=== PATIENT | female | born 1970 | race Caucasian/White ===

== ENCOUNTER 2020-06-21 08:44 | Inpatient (IN) | payer MEDICARE, MEDICAID, SELFPAY ==
[2020-06-21] VITALS (33 sets, daily range): BP systolic 61–137; BP diastolic 50–97; PULSE 105–131; RESP 17–35; TEMP 37.9–39.3; O2SAT 90–99; BMI 38.9
--- NOTE | ~2020-06-21 | CT_ITS ---
EXAMINATION: CT guide absc cath placement DATE: 06/22/2020 09:48 INDICATION: Left adnexal abscess. TECHNIQUE: The procedure including the risks, benefits, and alternatives was discussed with the patie nt. Risks discussed included bleeding and infection. The patient understood the risks and benefits an d agreed to proceed. The patient was confirmed to be receiving appropriate antibiotic coverage. The skin overlying the abdomen was prepped and draped in usual sterile fashion. Anesthetic was administe red with 1% lidocaine subcutaneously. An 18 gauge trochar needle was inserted into the left adnexal a bscess with CT guidance. The needle was exchanged over a wire for 6 Russian, 8 Russian, and 10 Russian d ilators and then for an 8.5 Russian pigtail catheter. The catheter was stitched to the skin, and a jackie rile dressing was applied. The mA was adjusted according to patient size. Iterative reconstruction te chnique was employed. The dose-length product was 170.24 mGy-cm. There were no immediate complication s. FINDINGS: CT images demonstrate the catheter within the fluid collection. 20 mL fluid was aspirated f or testing. IMPRESSION: 1. Successful CT-guided left adnexal abscess drainage. 2. 20 mL yellow-freedman, foul-smelling fluid was sent for aerobic and anaerobic cultures. Reviewed, dictated and finalized at location A. IMPRESSION: 1. Successful CT-guided left adnexal abscess drainage. 2. 20 mL yellow-freedman, foul-smelling fluid was sent for aerobic and anaerobic cul tures.
--- NOTE | ~2020-06-21 | XR_ITS ---
EXAMINATION: XR chest 2V DATE: 06/21/2020 10:01 INDICATION: Fever and cough TECHNIQUE: PA and lateral views of the chest are obtained. COMPARISON: None available FINDINGS: The lungs are free of acute opacities. There is no pleural effusion or pneumothorax. The ca rdiomediastinal silhouette is normal. There is mild thoracic spondylosis. IMPRESSION: 1. No acute cardiopulmonary abnormality. Reviewed, dictated and finalized at location A.
--- NOTE | ~2020-06-21 | XR_ITS ---
EXAMINATION: XR chest 1V portable DATE: 06/22/2020 06:22 INDICATION: Cough. TECHNIQUE: A single frontal view of the chest was obtained. COMPARISON: Chest 2 views 06/21/2020, CT abdomen and pelvis 06/21/2020 FINDINGS: The chest demonstrates clear lungs without pneumonia, pleural effusion, or pneumothorax. Th e heart size is normal. IMPRESSION: 1. No acute cardiopulmonary disease. Reviewed, dictated and finalized at location A.
--- NOTE | ~2020-06-21 | XR_ITS ---
XR chest 2V 06/26/2020 10:37 Indication: Cough. Recent abscess drain. Procedure: 2 view chest Comparison: 06/22/2020 Findings: Heart size normal. There is left basilar atelectasis. Cannot exclude small left effusion. N o focal pneumonia, edema or pneumothorax. No acute osseous abnormality. Impression: 1: Left basilar atelectasis. Reviewed, dictated and finalized at location B. Impression: 1: Left basilar atelectasis.
--- NOTE | ~2020-06-21 | CT_ITS ---
EXAMINATION: CT abdomen pelvis w con DATE: 06/21/2020 09:57 INDICATION: Generalized abdominal pain. TECHNIQUE: Computed tomography (CT) of the abdomen and pelvis was performed with 100 mL Omnipaque 350 intravenous contrast. Automated exposure control and iterative reconstruction technique were employe d. The dose-length product was 856.08 mGy-cm. COMPARISON: CT abdomen and pelvis 12/24/2018 FINDINGS: The visualized portions of the lung bases are clear without pneumonia or pleural effusion. The heart size is normal. No pericardial effusion. There is a small sliding hiatal hernia. The liver, gallbladder, and left adrenal gland are normal. There is a 2.8 cm mass in right adrenal gland contai stefani fat, consistent with a myelolipoma. Calcifications in the spleen are consistent with old granulo matous disease. A calcification in the pancreas is consistent with chronic pancreatitis. The kidneys are normal. There are scattered diverticula in the colon. There is liquid stool in the colon suggesti ve of diarrhea. The appendix is not visualized. There is a 13.4 x 11.5 x 7.3 cm multiloculated cystic mass with thick septations involving the left adnexa and abutting the uterus and sigmoid colon. Ther e is fat stranding around the mass. There are no pathologically enlarged lymph nodes. There is no sanna e intraperitoneal fluid. There is mild lumbar spondylosis. IMPRESSION: 1. 13.4 x 11.5 x 7.3 cm multiloculated cystic mass centered in the left adnexa. This finding may be a n ovarian neoplasm or an abscess. Surgical evaluation is recommended. Reviewed, dictated and finalized at location A. IMPRESSION: 1. 13.4 x 11.5 x 7.3 cm multiloculated cystic mass centered in the left adnexa. This finding may be an ovarian neoplasm or an abscess. Surgical evaluation is recommended.
--- NOTE | ~2020-06-21 | CT_ITS ---
EXAMINATION: CT abdomen pelvis w con DATE: 06/26/2020 10:55 INDICATION: Left adnexal abscess. TECHNIQUE: Computed tomography (CT) of the abdomen and pelvis was performed without intravenous contr ast. Automated exposure control and iterative reconstruction technique were employed. The dose-length product was 1022.16 mGy-cm. COMPARISON: CT abdomen and pelvis 06/21/2020 FINDINGS: The visualized portions of the lung bases demonstrate mild atelectasis in the left. A calci fied right lung nodule and calcified right hilar lymph nodes are consistent with old granulomatous di sease. There are tiny pleural effusions. The heart size is normal. No pericardial effusion. The liver , gallbladder, pancreas, and adrenal glands are normal. Calcifications in the spleen are consistent w ith old granulomatous disease. There is mild bilateral hydronephrosis and hydroureter. There are no d ilated loops of bowel. There are changes of appendectomy. There is a multiloculated abscess in the le ft adnexa measuring 7.4 x 5.1 x 4.4 cm with percutaneous drain in expected position. There are small rim-enhancing fluid collections in the left abdomen measuring up to 3.5 x 1.6 x 2.7 cm. There is a 5. 5 x 2.6 x 2.0 cm rim enhancing fluid collection at the midline. There are rim-enhancing fluid collect ions in right abdomen measuring up to 5.5 x 3.0 x 3.0 cm. There are no pathologically enlarged lymph nodes. There is mild lumbar spondylosis. IMPRESSION: 1. Multiloculated abscess in left adnexa with decrease in size with percutaneous drain in expected po sition. 2. Multiple new intraperitoneal rim-enhancing fluid collections, consistent with abscesses. 3. New mild bilateral hydronephrosis and hydroureter. Reviewed, dictated and finalized at location A. IMPRESSION: 1. Multiloculated abscess in left adnexa with decrease in size with percutaneou s drain in expected position. 2. Multiple new intraperitoneal rim-enhancing fluid collections, consistent wit h abscesses. 3. New mild bilateral hydronephrosis and hydroureter.
[2020-06-21 09:25] LABS: Hematocrit 33.9 % (37.0-47.0); Hemoglobin 11.2 g/dL (12.0-15.0); Mean Corpuscular Hemoglobin 27.1 pg (26-34); Mean Corpuscular Volume 81.9 fl (80-100); Mean Platelet Volume 8.8 fl (7.4-10.4); Platelet Count Result 557 k/mm3 (150-375); Red Blood Count 4.14 M/mm3 (4.2-5.4); Red Cell Distribution Width 14.2 % (11.5-14.5); White Blood Count 36.2 K/mm3 (4.5-10.0)
[2020-06-21 09:34] LABS: Band Neutrophils Percent 1 % (0-6); INR 1.3; Lymphocytes Absolute Manual 1.44 K/mm3 (1.1-4.5); Monocytes Absolute Manual 2.17 K/mm3 (0.1-0.90); Monocytes Percent Manual 6 % (3-9); Neutrophils Absolute Manual 32.58 K/mm3 (1.7-7.2); Neutrophils Percent Manual 89 % (46-73); Platelet Estimate Increased (Adequate); Prothrombin Time 15.7 Seconds (11.1-14.7); Total Cells Counted 100
--- NOTE | 2020-06-21 09:34 | WPDEDEXPGENP ---
HPI - General Ped General Chief complaint: Fever Stated complaint: ABD PAIN Time Seen by Provider: 06/21/20 09:30 Source: patient Mode of arrival: ambulatory Limitations: no limitations History of Present Illness HPI narrative: 49 years old white female presents with pain left lower quadrant, constant, aching, Patient denies any fever, chills, nausea, vomiting, diarrhea, constipation, urinary symptoms, vaginal bleeding or discharge. Last menstrual period months ago, patient believes she is going through menopause. Patient reports intermittent dry cough which started 3 days ago, denies exposure to anybody with known having COVID-19. Related Data Home Medications Medication Instructions Recorded Confirmed Vraylar 06/21/20 mzdbjwzich-hdulmtnkpmxpc-afex cap BID PRN 06/21/20 [Fioricet] clonazepam 06/21/20 pregabalin [Lyrica] 06/21/20 trazodone 06/21/20 vortioxetine [Trintellix] mg 06/21/20 Allergies Allergy/AdvReac Type Severity Reaction Status Date / Time No Known Allergies Allergy Mild Unverified 06/21/20 08:52 Pediatric Review of Systems : Review of Systems: CONSTITUTIONAL: Denies fever, chills, or sweats. EYES: Denies visual changes, redness, or discharge. ENT: Denies rhinorrhea, congestion, sore throat, or otalgia. CARDIOVASCULAR: Denies chest pain, palpitations, or edema. RESPIRATORY: Denies cough or dyspnea. GASTROINTESTINAL: Denies abdominal pain, nausea, vomiting, or diarrhea. GENITOURINARY: Denies dysuria or hematuria. SKIN: Denies rash or itching. MUSCULOSKELETAL: Denies back pain, joint pain, or myalgia. NEUROLOGIC: Denies headache, numbness, or weakness. PSYCHIATRIC: Denies anxiety or depression. [facility] Social History Social History (Updated 06/21/20 @ 11:03 by Miguel Angel Sargent MD) Second hand tobacco smoke exposure: No Pediatric Exam Narrative: Physical exam: General appearance: Well-developed, well-nourished, looks ill, no family member at the bedside Skin: Normal color Head: Normocephalic, nontraumatic Eyes: Clear conjunctiva ENT: Oropharynx normal, ears normal, nose normal Neck: Supple, nontender Chest and respiratory: Airway patent, no respiratory distress, no accessory muscle use Heart: Regular rate/rhythm Abdomen: Soft, severe localized tenderness left lower quadrant, masslike feeling, guarding and rebound, no organomegaly, quiet bowel sounds Vascular: Normal peripheral pulses, normal capillary refill. Musculoskeletal: Normal range of motion, nontender back Neurologic: Alert and oriented ?3, PROJECT ESTIMATOR is normal as tested, no gross motor deficit : External exam: Present normal external exam and other (Vaginal exam showed no bleeding or discharge. Diffusely tender mainly at the left) Course Course Emergency Course: Stable Consultations Consultation #1: Dr. Mejia Date: 06/21/20 Time: 11:12 Vital Signs Vital signs: Vital Signs Temperature 39.3 C H 06/21/20 08:49 Pulse Rate 131 H 06/21/20 08:49 Respiratory Rate 35 H 06/21/20 08:49 Blood Pressure 120/69 06/21/20 08:49 Pulse Oximetry 95 06/21/20 08:49 Temperature 39.3 C H 06/21/20 08:49 Pulse Rate 105 H 06/21/20 12:46 Respiratory Rate 20 06/21/20 12:46 Blood Pressure 113/97 H 06/21/20 13:01 Pulse Oximetry 97 06/21/20 13:01 Medical Decision Making MDM Narrative Medical decision making narrative: Patient presents with left lower quadrant pain, high temperature noticed on arrival to the emergency room, patient denies any fever or chills at home. Physical exam showed severe tenderness left lower quadrant with masslike feeling. Labs, CT abdomen and pelvis with IV contrast showed Leukocytosis, Mass versus abscess left adne
[2020-06-21 09:35] LABS: Partial Thromboplastin Time 35.7 SECONDS (22.3-36.8)
[2020-06-21 09:42] LABS: Alanine Aminotransferase 41 U/L (4-35); Albumin Level 3.4 g/dL (3.5-5.1); Alkaline Phosphatase 177 U/L (38-126); Anion Gap 12 mmol/L (8-16); Aspartate Amino Transferase 25 U/L (14-36); Blood Urea Nitrogen 10 mg/dL (7-17); Calcium 8.7 mg/dL (8.4-10.2); Carbon Dioxide 22 mmol/L (22-30); Chloride 101 mmol/L (98-107); Estimated CRCL calculation 0 ml/min; Estimated Glomerular Filt Rate > 60; Glucose 208 mg/dL (65-105); Potassium 3.1 mmol/L (3.4-5.0); Sodium 135 mmol/L (137-145)
--- NOTE | 2020-06-21 09:48 | PC.NURSE ---
this RN at bedside to give meds and start IVF. tech here to take patient to CT.
--- NOTE | 2020-06-21 10:05 | PC.NURSE ---
patient back from CT. ambulated to restroom. cup for urine specimen given.
--- NOTE | 2020-06-21 10:14 | PC.NURSE ---
Note pt returns from radiology and then restroom. IV dc'd accidently per patient. VANESSA Leon, at bedside attempting additional IV.
[2020-06-21] MEDS: SODIUM CHLORIDE 0.9% IV 1,000 ML 999 ML IV CONT (10:21)
[2020-06-21 10:26] LABS: Add Urine Microscopic? YES; Appearance Urine Clear (Clear); Bacteria Urine Trace /hpf; Bilirubin Urine Negative (Negative); Blood Urine 3+ (Negative); Color Urine Yellow (Yellow); Glucose Urine UA Negative (Negative); Ketones Urine Negative (Negative); Leukocyte Esterase Ur Negative LEU/UL (Negative); Nitrate Urine Negative (Negative); Protein Urine 2+ mg/dL (Negative); Squamous Epithelial Cell Urine Few /hpf (Few); WBC Urine 16-20 /hpf
[2020-06-21 10:29] LABS: Specific Grav Ur 1.041 (1.001-1.035)
--- NOTE | 2020-06-21 11:10 | PC.NURSE ---
this rn at bedside. Flagyl infusing. KCL IV started. verified compatibility on Micromedex. all explained to patient. Alert. denies other needs. placed on school bus monitor due to KCL infusion.
[2020-06-21] MEDS: metroNIDAZOLE 500 MG/ISO 100ML 500 MG/100 ML BAG 100 MG IVPB ×2 (11:33→18:26)
--- NOTE | 2020-06-21 11:42 | PC.NURSE ---
Dr. Sargent at bedside for pelvic exam with cultures.
--- NOTE | 2020-06-21 12:44 | PC.NURSE ---
patient to be admitted upstairs. waiting for bed assignment.
--- NOTE | 2020-06-21 13:06 | PC.NURSE ---
patient updated on admission status. waiting for bed assignment. incontinent of urine again while coughing. patient is concerned that the mass in her abdomen is pushing on her bladder. patient's bed changed. patient cleaned and gown changed. placed back on stretcher. on monitor. alert. oriented.
--- NOTE | 2020-06-21 14:05 | PC.NURSE ---
will call to verify RN on floor received patient's information. then planning to transfer to 252. patient is aware.
--- NOTE | 2020-06-21 14:28 | PC.NURSE ---
report given to Flor MENDEZ on 2nd floor. patient ready for transfer on tele monitor due to K-rider infusing. patient denies needs prior to transfer.
[2020-06-21] MEDS: ONDANSETRON INJ 4 MG/2 ML VIAL IV PUSH (14:47)
--- NOTE | 2020-06-21 14:57 | PC.NURSE ---
Flor MENDEZ from 2nd floor called. patient's mother has been upstairs in her room for 20 minutes. checked with patient. patient does not want her mother here. Flor aware. she will have the patient escorted out.
--- NOTE | 2020-06-21 15:43 | ADMGEN ---
This patient, Clemente Blake, was admitted to Medical Room 252-01. Patient/family oriented to hospital policies and general routines including ID bracelet, bed and alarms, visiting hours, pain management, procedures, bathroom and other care routines, personal items, smoking policy, room service/diet, and visiting hours. Valuables list has been completed. Information on how to activate the Rapid Response Team has been discussed. Patient/Family are encouraged to report perceived risks to care and to ask questions if they do not understand what they are told or what they should do.
[2020-06-21] MEDS: SODIUM CHLORIDE 0.9% IV 1,000 ML 150 ML IV CONT (16:43)
--- NOTE | 2020-06-21 17:01 | PM.IMHP ---
H&P: HPI History of Present Illness Date/Time: 06/21/20 17:01 Chief complaint: pelvic abscess Narrative: Clemente Blake is a 49 year old female presentee to ER with complaints of left lower quadrant pain and cough. Pain is constant and radiates into vagina. Patient reports pains statred 2-3 days ago. Patient denies fevers chills. Patient does report some sweats patient also denies any vaginal discharge or changes in bowel or urinary symptoms. patient denies nausea vomiting diarrhea or rashes. Patient reports last vaginal intercourse or sexual intercourse almost a year ago. Patient has began to skip menstrual cycles last menstrual cycle a couple months ago. Last obstetrics gyn exam approximately 10 years ago. patient denies any female complications. Review of Systems Review of Systems: All systems reviewed & are unremarkable except as noted in HPI and below PMFSH Past Medical History Medical History (Updated 06/21/20 @ 17:07 by Brien Mitchell MD) Bipolar 1 disorder Surgical History Surgical History (Updated 06/21/20 @ 17:08 by Brien Mitchell MD) H/O: History of appendectomy Social History Social History Smoking status: Never smoker Second hand tobacco smoke exposure: No Alcohol intake: never Substance use: never Gender identity (if verbalized by the patient): Female Spiritual care concerns: No Meds Home Medications and Allergies Home Medications Medication Instructions Recorded Confirmed Type medvsbfffs-knbipoykctawn-vyrc 1 cap BID PRN 06/21/20 06/21/20 History [Fioricet] cariprazine [Vraylar] 1.5 mg PO DAILY 06/21/20 06/21/20 History clonazepam 2 mg PO TID PRN 06/21/20 06/21/20 History pregabalin [Lyrica] 200 mg PO BID PRN 06/21/20 06/21/20 History ropinirole 0.5 mg PO BID PRN 06/21/20 06/21/20 History trazodone 100 mg PO HS PRN 06/21/20 06/21/20 History vortioxetine [Trintellix] 20 mg PO DAILY 06/21/20 06/21/20 History Allergies Allergy/AdvReac Type Severity Reaction Status Date / Time No Known Allergies Allergy Mild Unverified 06/21/20 08:52 Vital Signs Vital Signs - 24 hr 06/21/20 08:49 06/21/20 08:53 06/21/20 09:07 Temperature 39.3 C H Pulse Rate 131 H 130 H 127 H Respiratory Rate 35 H 28 H 31 H Blood Pressure 120/69 Pulse Oximetry 95 96 96 06/21/20 09:15 06/21/20 09:16 06/21/20 09:30 Temperature Pulse Rate 127 H Respiratory Rate 17 27 H Blood Pressure 131/74 Pulse Oximetry 93 97 96 06/21/20 09:31 06/21/20 09:45 06/21/20 09:46 Temperature Pulse Rate 125 H Respiratory Rate Blood Pressure 134/73 110/68 Pulse Oximetry 94 97 97 06/21/20 10:11 06/21/20 10:12 06/21/20 10:15 Temperature Pulse Rate Respiratory Rate Blood Pressure 137/68 Pulse Oximetry 90 99 97 06/21/20 10:30 06/21/20 10:45 06/21/20 10:46 Temperature Pulse Rate Respiratory Rate Blood Pressure 116/72 Pulse Oximetry 96 95 97 06/21/20 11:03 06/21/20 11:15 06/21/20 11:16 Temperature Pulse Rate Respiratory Rate Blood Pressure 119/68 Pulse Oximetry 97 96 96 06/21/20 11:33 06/21/20 11:49 06/21/20 12:00 Temperature Pulse Rate Respiratory Rate Blood Pressure Pulse Oximetry 97 93 95 06/21/20 12:10 06/21/20 12:15 06/21/20 12:16 Temperature Pulse Rate Respiratory Rate Blood Pressure 121/59 L 116/71 Pulse Oximetry 94 94 95 06/21/20 12:31 06/21/20 12:32 06/21/20 12:45 Temperature Pulse Rate 107 H 107 H 108 H Respiratory Rate 30 H 33 H 28 H Blood Pressure 61/50 L Pulse Oximetry 96 96 96 06/21/20 12:46 06/21/20 13:00 06/21/20 13:01 Temperature Pulse Rate 105 H Respiratory Rate 20 Blood Pressure 98/67 L 113/97 H Pulse Oximetry 97 94 97 06/21/20 13:29 06/21/20 15:57 Temperature 38.1 C H 38.2 C H Pulse Rate 120 H Respiratory Rate 28 H Blood Pressure 130/68 Pulse Oximetry 98 Exam
--- NOTE | 2020-06-21 18:57 | PHAR ---
Home medications Vraylar 1.5mg and Trintellix 20mg seen in pharmacy and returned to [facility]
[2020-06-22] VITALS (19 sets, daily range): BP systolic 87–148; BP diastolic 52–85; PULSE 100–132; RESP 16–45; TEMP 36.8–39.3; O2SAT 91–97
[2020-06-22] MEDS: SODIUM CHLORIDE 0.9% IV 1,000 ML 150 ML IV CONT ×2 (01:00→16:23)
[2020-06-22] MEDS: metroNIDAZOLE 500 MG/ISO 100ML 500 MG/100 ML BAG 100 MG IVPB ×4 (01:10→18:00)
[2020-06-22] MEDS: traZODone HCL 50 MG TABLET 100 MG PO (01:52)
--- NOTE | 2020-06-22 05:28 | ECG_ITS ---
Measurements Intervals Delta Rate: 107 P: 6 KS: 122 QRS: 9 QRSD: 81 T: 20 QT: 317 QTc: 423 Interpretive Statements SINUS TACHYCARDIA LOW QRS VOLTAGE IN PRECORDIAL LEADS BORDERLINE T WAVE ABNORMALITY- INFERIOR LEADS BASELINE WANDER- I, II, III, AVR, AVL, V6 ABNORMAL ECG Electronically Signed On 06-22-2020 7:06:40 CDT by He Goyal D.O.
[2020-06-22] MEDS: SODIUM CHLORIDE 0.9% IV 500 ML 999 ML IV CONT ×2 (05:50→06:33)
--- NOTE | 2020-06-22 05:50 | PM.IMCN ---
Assessment and Plan Assessment and plan (1) Severe sepsis: Code(s): A41.9 - Sepsis, unspecified organism; R65.20 - Severe sepsis without septic shock Status: Acute Assessment and Plan: The patient was found to be hypotensive this morning with blood pressure of 87/52 mm Hg and tachycardic w/ HR in the 130s. Source of sepsis appears to be an intraabdominal/pelvic abscess. Continue wide spectrum IV antibiotics, check EKG, reflex lactic acid, 500 cc IV NS bolus, ABG, telemetry, continue NPO, Continue IV fluids. Monitor vital signs and urine output closely. Monitor mental status closely. Blood cultures pending. Telemetry. The patient's blood pressure has improved to 97/55 mm Hg and heart rate is now 105 bpm with 500 cc NS IV bolus. We will administer another 500 CC IV NS bolus now. We will consider transfer to ICU and vasopressor support if the patient worsens. (2) Hypokalemia: Code(s): E87.6 - Hypokalemia Status: Acute Assessment and Plan: KCL replacement, Monitor serum potassium. (3) Abscess of female pelvis: Code(s): N73.9 - Female pelvic inflammatory disease, unspecified Status: Acute Assessment and Plan: Continue wide spectrum IV antibiotics. Continue COSTUME SHOP COORDINATOR recommendations. The patient will benefit from source control of abscess. (4) Abnormal glucose: Code(s): R73.09 - Other abnormal glucose Status: Acute Assessment and Plan: r/o diabetes mellitus. Check HgbA1c. Accuchecks, SSI coverage, Hypoglycemic protocol. (5) Cough: Code(s): R05 - Cough Status: Acute Assessment and Plan: Check another CXR this morning. PRN antitussives. (6) Bipolar 1 disorder: Code(s): F31.9 - Bipolar disorder, unspecified Status: Chronic Assessment and Plan: Resume home medications when appropriate. (7) Fibromyalgia: Code(s): M79.7 - Fibromyalgia Status: Chronic Assessment and Plan: Resume home medications when appropriate. Additional Plan Date of service was 06/22/2020 at 05:30 hrs. HPI Data of Consult Consult date: 06/22/20 Requesting Physician: Naya Mejia MD Primary Care Provider: Clarissa SosaMD Consult Narrative Narrative: Thank you for consulting us to see this 49 year old morbidly obese female with known Bipolar disorder and fibromyalgia who presented to the hospital yesterday with a complaint of 3 days of left lower abdominal and pelvic pain. She denies any nausea or vomiting but does report that she has had a nonproductive cough. The patient was admitted to the COSTUME SHOP COORDINATOR service after she was found to have a 3.4 x 11.5 x 7.3 cm multiloculated cystic mass centered in the left adnexa and found to be severely septic with an elevated WBC of 36,200, fever of 39.3 C, and tachycardic with HR in the 120s- 130s. On my encounter with the patient she is diaphoretic, somnolent but arousable, continuing to complain of LLQ abd pain. The patient was had a prominent nonproductive cough during my encounter with her. She is denying any other symptoms at this time. Nursing staff alerted me that the patient was also having diarrhea tonight. Review of Systems Review of Systems: All systems reviewed & are unremarkable except as noted in HPI and below PMFSH Past Medical History Medical History Bipolar 1 disorder Surgical History Surgical History H/O: History of appendectomy Social History Social History Smoking status: Never smoker Second hand tobacco smoke exposure: No Alcohol intake: never Substance use: never Gender identity (if verbalized by the patient): Female Spiritual care concerns: No Comments Patient does not know any history of her father, other family history is reviewed and noncontributory. Meds
[2020-06-22 05:53] LABS: Alveolar/Arterial O2 Gradient 23.6 mmHg; Base Excess ABG -6.1 mEq/l (+/-2.0); Fractional Inspired Oxygen 21 %; Oxygen Content ABG 16.7 %vol (16.0-22.0); Oxygen Saturation ABG 96.7 % (95.0-100.0); Oxyhemoglobin 95.8 % THb (90.0-100.0); PCO2 ABG 31.4 mmHg (35.0-45.0); PO2 ABG 88.5 mmHg (80.0-100.0); PO2 FiO2 Ratio Arterial Blood 4.21 %; Total Hemoglobin 12.3 g/dL (12.0-18.0); pH ABG 7.376 (7.350-7.450)
[2020-06-22 05:55] LABS: Device ROOM AIR; Modified Allen's Test Pass; Site Drawn RIGHT RADIAL
[2020-06-22 06:01] LABS: Alanine Aminotransferase 27 U/L (4-35); Albumin Level 3.1 g/dL (3.5-5.1); Alkaline Phosphatase 147 U/L (38-126); Anion Gap 11 mmol/L (8-16); Aspartate Amino Transferase 17 U/L (14-36); Bilirubin,Total 0.5 mg/dL (0.2-1.3); Blood Urea Nitrogen 9 mg/dL (7-17); Calcium 8.2 mg/dL (8.4-10.2); Carbon Dioxide 19 mmol/L (22-30); Chloride 110 mmol/L (98-107); Estimated CRCL calculation 74 ml/min; Estimated Glomerular Filt Rate > 60; Glucose 165 mg/dL (65-105); Sodium 140 mmol/L (137-145)
[2020-06-22 06:02] LABS: Basophils Absolute Auto 0.1 K/mm3 (0.0-0.1); Basophils Percent Auto 0.3 % (0.2-1.2); Eosinophils Percent Auto 0.1 % (0-4.4); Hematocrit 30.9 % (37.0-47.0); Hemoglobin 10.1 g/dL (12.0-15.0); Immature Granulocyte Absolute 0.51 K/mm3 (0.00-0.031); Immature Granulocyte Percent A 1.6 % (0-0.5); Lymphocytes Absolute Auto 1.35 K/mm3 (0.9-3.2); Lymphocytes Percent Auto 4.2 % (18.3-44.2); Mean Corpuscular HGB Conc 32.7 g/dl (32-36); Mean Corpuscular Hemoglobin 27.8 pg (26-34); Mean Corpuscular Volume 85.1 fl (80-100); Monocytes Absolute Auto 1.2 K/mm3 (0.1-0.6); Monocytes Percent Auto 3.7 % (2.6-8.5); Neutrophils Absolute Auto 29.2 K/mm3 (1.3-6.7); Neutrophils Percent Auto 90.1 % (45.5-73.1); Platelet Count Result 470 k/mm3 (150-375); Red Blood Count 3.63 M/mm3 (4.2-5.4); Red Cell Distribution Width 14.7 % (11.5-14.5); White Blood Count 32.4 K/mm3 (4.5-10.0)
[2020-06-22 06:21] LABS: Lactic Acid Reflex 0.8 mmol/L (0.7-2.1)
--- NOTE | 2020-06-22 06:51 | PC.NURSE ---
Dr. Payne called for blood pressure 87/52 and informed her pt has remained tachy 100-130s overnight with a fever spike of 102.8 which was relieved by tylenol. Orders received for hospitalist consult and for radiologist placed ovarian drain. Dr Tom consulted and further orders received in person.
--- NOTE | 2020-06-22 07:08 | PC.NURSE ---
Vascular access called to place second line after unable to place one overnight, pt requiring multiple infusions at a time and requires a second line at this time.
[2020-06-22] MEDS: KCL 20 MEQ/SW 100 ML 100 ML 50 MEQ IVPB (07:50)
[2020-06-22] MEDS: guaiFENesin/DEXTROMETHORPHAN 10 ML UDC PO ×2 (07:51→22:08)
[2020-06-22 08:18] LABS: Glucose Point of Care 122 (65-105)
[2020-06-22] MEDS: HYDROmorphone HCL INJ (*CRX) 1 MG/ML SYR 0.5 MG IV PUSH ×2 (10:02→18:04)
[2020-06-22] MEDS: SODIUM CHLORIDE 0.9% IV 1,000 ML 999 ML IV CONT (11:54)
[2020-06-22] MEDS: HYDROmorphone HCL INJ (*CRX) 1 MG/ML SYR 2 MG IV PUSH (12:06)
[2020-06-22 12:36] LABS: Anion Gap 10 mmol/L (8-16); Blood Urea Nitrogen 8 mg/dL (7-17); Calcium 8.2 mg/dL (8.4-10.2); Carbon Dioxide 17 mmol/L (22-30); Chloride 114 mmol/L (98-107); Estimated CRCL calculation 74 ml/min; Estimated Glomerular Filt Rate > 60; Glucose 171 mg/dL (65-105); Potassium 3.1 mmol/L (3.4-5.0); Sodium 141 mmol/L (137-145)
[2020-06-22 12:53] LABS: Glucose Point of Care 162 (65-105)
--- NOTE | 2020-06-22 14:07 | PM.IMPN ---
Progress Note: A&P Assessment and Plan (1) Fibromyalgia: Code(s): M79.7 - Fibromyalgia Status: Chronic Assessment and Plan: Stable Continue home meds. (2) Abscess of female pelvis: Code(s): N73.9 - Female pelvic inflammatory disease, unspecified Status: Acute Assessment and Plan: S/p IR drain. Await cx Continue Zosyn + Flagyl Appreciate chief general pediatric clinic note CT abd/pel reviewed (3) Cough: Code(s): R05 - Cough Status: Acute Assessment and Plan: Non productive Supportive care Continue to monitor. (4) Hypokalemia: Code(s): E87.6 - Hypokalemia Status: Acute Assessment and Plan: Replace as needed. (5) Severe sepsis: Code(s): A41.9 - Sepsis, unspecified organism; R65.20 - Severe sepsis without septic shock Status: Acute Assessment and Plan: Improved IV fluids Broad spectrum antibiotics Daily CBC Daily BMP (6) Bipolar 1 disorder: Code(s): F31.9 - Bipolar disorder, unspecified Status: Chronic Assessment and Plan: Stable Continue home meds Subjective Date/time seen: 06/22/20 14:07 I'm in pain. No more chills. Review of Systems Review of Systems: Narrative: Patient presented to ED due to abdominal pain, patient was found to have complex anexa mass and abscess formation. She is s/p abscess drain by IR. Constitutional: Comments: Chills. Eyes: Comments: No visual changes. ENT: Comments: No ear pain, no throat pain, no nasal congestion or discharge. Cardiovascular: Comments: no chest pain, no sob, no leg swelling. Respiratory: Comments: No sob, no cough, no sputum production. Gastrointestinal: Comments: LLQ pain. Genitourinary: Comments: no vaginal bleeding, no discharge. Musculoskeletal: Comments: no pain, no swelling. Integumentary/Breasts: Comments: no rashes. Neurologic: Comments: no sensorymotor deficit. Hematologic/Lymphatic: Comments: No LAP Exam Narrative: Exam Narrative: Lying in bed antalgic position Const: General: well developed, alert, awake, ill appearing and well groomed Nutritional Appearance: average body habitus HENMT: Head: normocephalic Ears: hearing grossly normal bilaterally General nose exam: Normal external nose present Mouth: Yes Normal oral and palatal mucosa present Eyes: General: appearance normal, both eyes and all related structures Pupils: Equal, round and reactive pupils present EOM: EOMs intact bilaterally Neck: Neck: no lymphadenopathy and no JVD Resp: Effort & Inspection: normal respiratory effort Auscultation: clear to auscultation bilaterally Cardio: Jugular venous distension: no JVD Rhythm: regular rhythm and abnormal rhythm Heart sounds: S1 normal heart sound present and S2 normal heart sound present GI: GI Palp: Yes Soft to palpation, Yes Tenderness to palpation present (GI) and Yes No hepatosplenomegaly present Auscultation: normal bowel sounds Skin: General skin exam: normal color Lesions: no lesions Rashes: no rashes Neuro: General: patient oriented x3 and CN's II-XI intact bilaterally Cranial nerves: Yes Equal, round and reactive pupils present Motor exam (neuro): 5/5 motor strength present throughout Extrem: General: full ROM and no pedal edema Objective Data Vital Signs Vital Signs: Vital Signs - 24 hr 06/21/20 15:57 06/21/20 21:48 06/22/20 02:00 Temperature 100.8 F H 100.3 F H 102.8 F H Pulse Rate 120 H 121 H 124 H Respiratory Rate 28 H 18 16 Blood Pressure 130/68 113/57 L 134/60 Pulse Oximetry 98 99 95 06/22/20 02:26 06/22/20 04:30 06/22/20 04:50 Temperature 102.8 F H 98.6 F 98.2 F Pulse Rate 105 H Respiratory Rate 16 Blood Pressure 87/52 L Pulse Oximetry 96 06/22/20 04:53 06/22/20 06:21 06/22/20 08:00 Temperature 98.6 F 100.1 F H Pulse Rate 124 H Respiratory Rate 26 H Blood Pressure 97/55 L 132/70 Pulse Oximetry 97 06/22/20 09:50 06/22/20 10:00 06/22/20 10:54 Temperature 100.
--- NOTE | 2020-06-22 16:53 | PM.GYNPNOP ---
MILLINERY DESIGNER - A/P Assessment and plan (1) Abscess of female pelvis: Code(s): N73.9 - Female pelvic inflammatory disease, unspecified Status: Acute Assessment and Plan: Plan CT guided drainage of abscess. continue antibiotics and antipyretics and pain medications. Apppreciate hospitalist consult. (2) Hypokalemia: Code(s): E87.6 - Hypokalemia Status: Acute (3) Severe sepsis: Code(s): A41.9 - Sepsis, unspecified organism; R65.20 - Severe sepsis without septic shock Status: Acute (4) Bipolar 1 disorder: Code(s): F31.9 - Bipolar disorder, unspecified Status: Chronic (5) Fibromyalgia: Code(s): M79.7 - Fibromyalgia Status: Chronic (6) Cough: Code(s): R05 - Cough Status: Acute Time Spent With Patient Time: Total time spent is greater than 50% in coordination of care (as documented) at patient's floor/unit and/or counseling patient: Time with patient: less than 15 minutes MILLINERY DESIGNER- PN:Subj Post-Op Subjective Date/time seen: 06/22/20 16:53 Patient seen this am. Patient had Hospitalist consult this am for further sepsis workup. Patient being consented for ct guided biopsy. Patient with multiple questions about having surgery instead of drainage concerned with pain relief. MILLINERY DESIGNER - PN: Obj Data Vital Signs Vital Signs: Vital Signs - 24 hr 06/21/20 21:48 06/22/20 02:00 06/22/20 02:26 Temperature 37.9 C H 39.3 C H 39.3 C H Pulse Rate 121 H 124 H Respiratory Rate 18 16 Blood Pressure 113/57 L 134/60 Pulse Oximetry 99 95 06/22/20 04:30 06/22/20 04:50 06/22/20 04:53 Temperature 37.0 C 36.8 C 37.0 C Pulse Rate 105 H Respiratory Rate 16 Blood Pressure 87/52 L Pulse Oximetry 96 06/22/20 06:21 06/22/20 08:00 06/22/20 09:50 Temperature 37.8 C H Pulse Rate 124 H 100 Respiratory Rate 26 H 16 Blood Pressure 97/55 L 132/70 148/85 H Pulse Oximetry 97 97 06/22/20 10:00 06/22/20 10:54 06/22/20 11:24 Temperature 38.1 C H 38.1 C H 37.4 C Pulse Rate 130 H Respiratory Rate 24 H Blood Pressure 122/82 Pulse Oximetry 97 06/22/20 12:00 06/22/20 14:00 06/22/20 16:00 Temperature 37.1 C Pulse Rate 128 H 120 H 123 H Respiratory Rate 20 Blood Pressure 110/61 Pulse Oximetry 92 Intake/Output Intake/Output: Intake & Output 06/19/20 06/20/20 06/21/20 06/22/20 23:59 23:59 23:59 23:59 Intake Total 1999 4870 Output Total 325 Balance 1999 4545 Meds/Results Medications: Active Medications Generic Name Dose Route Start Last Admin Trade Name Freq PRN Reason Stop Dose Admin Butalbital/Aspirin/Caffeine 1 cap 06/21/20 19:49 06/21/20 21:25 Acetamin/Butalbital/Caffeine 1 Capsule PO 1 cap Q4H PRN Administration Headache Clonazepam 2 mg 06/21/20 17:17 Clonazepam (*Crx) 0.5 Mg Tablet PO TID PRN Anxiety Dextrose 12.5 gm 06/22/20 06:44 Dextrose 50% 25 Gm/50 Ml Syringe IV PUSH PRN PRN Hypoglycemia Protocol Glucagon 1 mg 06/22/20 06:44 Glucagon For Inj 1 Mg Vial IM PRN PRN Hypoglycemia Protocol Glucose 15 gm 06/22/20 06:44 Glucose Oral Gel 15 Gm Of Glucse In 37.5 Gm Tube PO PRN PRN Hypoglycemia Protocol Guaifenesin/Dextromethorphan 10 ml 06/22/20 06:43 06/22/20 07:51 Guaifenesin/Dextromethorphan 10 Ml Udc PO 10 ml Q4H PRN Administration Cough Hydromorphone HCl 0.5 mg 06/21/20 12:22 06/22/20 10:02 Hydromorphone Hcl Inj (*Crx) 1 Mg/Ml Syr IV PUSH 0.5 mg Q4H PRN Administration Pain Rated 7-10 Sodium Chloride 1,000 mls @ 150 mls/hr 06/21/20 12:25 06/22/20 16:23 Normal Saline Iv IV CONT 150 mls/hr .Q6H40M LELIA Administration Piperacillin/Tazobactam/Dextrose 3.375 gm in 50 mls @ 100 mls/hr 06/21/20 17:30 06/22/20 16:51 Zosyn 3.375 Gm/D5w 50ml Pm IVPB 100 mls/hr Q6H LELIA Administration Metronidazole 500 mg in 100 mls @ 100 mls/hr 06/21/20 18:30 06/22/20 13:57 Flagyl
[2020-06-22 17:27] LABS: Glucose Point of Care 178 (65-105)
[2020-06-22] MEDS: ONDANSETRON INJ 4 MG/2 ML VIAL IV PUSH (18:04)
[2020-06-22 18:17] LABS: Basophils Absolute Auto 0.1 K/mm3 (0.0-0.1); Basophils Percent Auto 0.5 % (0.2-1.2); Eosinophils Absolute Auto 0.1 K/mm3 (0-0.3); Eosinophils Percent Auto 0.2 % (0-4.4); Hematocrit 36.2 % (37.0-47.0); Hemoglobin 11.9 g/dL (12.0-15.0); Immature Granulocyte Absolute 0.35 K/mm3 (0.00-0.031); Immature Granulocyte Percent A 1.2 % (0-0.5); Lymphocytes Absolute Auto 0.91 K/mm3 (0.9-3.2); Lymphocytes Percent Auto 3.2 % (18.3-44.2); Mean Corpuscular HGB Conc 32.9 g/dl (32-36); Mean Corpuscular Volume 85.2 fl (80-100); Monocytes Absolute Auto 0.7 K/mm3 (0.1-0.6); Monocytes Percent Auto 2.6 % (2.6-8.5); Neutrophils Absolute Auto 25.8 K/mm3 (1.3-6.7); Neutrophils Percent Auto 92.3 % (45.5-73.1); Platelet Count Result 486 k/mm3 (150-375); Red Blood Count 4.25 M/mm3 (4.2-5.4); Red Cell Distribution Width 15.4 % (11.5-14.5)
[2020-06-22 19:05] LABS: Lactic Acid Reflex 1.3 mmol/L (0.7-2.1)
[2020-06-22 19:06] LABS: Anion Gap 9 mmol/L (8-16); Blood Urea Nitrogen 10 mg/dL (7-17); Calcium 7.7 mg/dL (8.4-10.2); Carbon Dioxide 19 mmol/L (22-30); Chloride 112 mmol/L (98-107); Estimated CRCL calculation 74 ml/min; Estimated Glomerular Filt Rate > 60; Glucose 202 mg/dL (65-105); Potassium 3.4 mmol/L (3.4-5.0); Sodium 140 mmol/L (137-145)
--- NOTE | 2020-06-22 22:00 | PM.EVENT ---
Event Note Event Note Event Note: S: I received a call from the patient's nurse at approximately 21:45 with an update. RN reports that the patient is tachycardic and tachypneic, reporting that she has been tachycardic since admission yesterday morning with periods of tachypnea as well. I came to examine the patient approximately 22:00 and the patient herself voices no real concerns aside from a dry cough has been ongoing for several weeks. She denies feeling short of breath and tells me that she is not taking deep breaths as it seems to exacerbate her cough. She is asymptomatic with regards to the tachycardia. She is on disability and does not go out of the home very often. No sick contacts or exposure to those positive for COVID-19. O: She appears moderately ill at the time my evaluation, nontoxic. Heart rate is about 120 to 125 and her respiratory rate is 34 at the time my evaluation. No murmur. Lungs are clear to auscultation. She is alert and oriented x4. Abdomen to palpation in the periumbilical region. Drain is in place. No significant lower extremity edema. A: I suspect her intermittent tachypnea is related to her underlying sepsis in addition to the patient intentionally not trying to take deep breaths to avoid cough and discomfort in her abdomen. Her blood pressures and oxygenation are stable. Recent lab draws including ABG showed no evidence of decompensation. P: We are going to continue to monitor the patient closely and she has been instructed to alert us of any change. Continue treating underlying pathology including IV fluids and broad-spectrum antibiotics. Blood cultures and abdominal fluid cultures pending at this time.
[2020-06-22 22:30] LABS: Glucose Point of Care 223 (65-105)
[2020-06-22 23:39] LABS: Alveolar/Arterial O2 Gradient 38.6 mmHg; Base Excess ABG -7.3 mEq/l (+/-2.0); Carboxyhemoglobin 0.4 % THb (0-2.0); Device ROOM AIR; Fractional Inspired Oxygen 21 %; HCO3 ABG 16.6 mEq/l (22.0-26.0); Methemoglobin ABG 0.1 %THb (0-1.5); Modified Allen's Test Pass; Oxygen Content ABG 15.9 %vol (16.0-22.0); Oxygen Saturation ABG 95.3 % (95.0-100.0); Oxyhemoglobin 94.7 % THb (90.0-100.0); PCO2 ABG 28.8 mmHg (35.0-45.0); PO2 ABG 76.6 mmHg (80.0-100.0); PO2 FiO2 Ratio Arterial Blood 3.65 %; Reduced Hemoglobin 4.8 %THb (0-5.0); Site Drawn RIGHT RADIAL; Total Hemoglobin 11.9 g/dL (12.0-18.0); pH ABG 7.379 (7.350-7.450)
[2020-06-22 23:53] LABS: Anion Gap 10 mmol/L (8-16); Blood Urea Nitrogen 10 mg/dL (7-17); Calcium 7.6 mg/dL (8.4-10.2); Carbon Dioxide 17 mmol/L (22-30); Chloride 109 mmol/L (98-107); Estimated CRCL calculation 74 ml/min; Estimated Glomerular Filt Rate > 60; Glucose 200 mg/dL (65-105); Potassium 3.1 mmol/L (3.4-5.0); Sodium 136 mmol/L (137-145)
[2020-06-23] VITALS (12 sets, daily range): BP systolic 111–125; BP diastolic 63–71; PULSE 105–118; RESP 22–28; TEMP 36.7–37.4; O2SAT 93–96
[2020-06-23] MEDS: traZODone HCL 50 MG TABLET 100 MG PO ×2 (00:01→21:45)
[2020-06-23] MEDS: metroNIDAZOLE 500 MG/ISO 100ML 500 MG/100 ML BAG 100 MG IVPB ×4 (00:34→17:45)
[2020-06-23] MEDS: ONDANSETRON INJ 4 MG/2 ML VIAL IV PUSH (02:07)
[2020-06-23] MEDS: SODIUM CHLORIDE 0.9% IV 1,000 ML 150 ML IV CONT ×2 (02:09→11:19)
--- NOTE | 2020-06-23 07:42 | PM.IMPN ---
Progress Note: A&P Assessment and Plan (1) Fibromyalgia: Code(s): M79.7 - Fibromyalgia Status: Chronic Assessment and Plan: Stable Continue home meds Continue to monitor (2) Cough: Code(s): R05 - Cough Status: Acute Assessment and Plan: Continue supportive care Tesalon pearls prn (3) Abnormal glucose: Code(s): R73.09 - Other abnormal glucose Status: Acute Assessment and Plan: D5% has been discontinued HgA1C noted Dieat and lifestyle modifications (4) Severe sepsis: Code(s): A41.9 - Sepsis, unspecified organism; R65.20 - Severe sepsis without septic shock Status: Acute Assessment and Plan: Leukocytosis although trending down Bandemia at 10 % Broad antibiotics on IV fluids Strict I/O's Daily labs Lactic acid noted (5) Bipolar 1 disorder: Code(s): F31.9 - Bipolar disorder, unspecified Status: Chronic Assessment and Plan: Stable Continue to monitor (6) Abscess of female pelvis: Code(s): N73.9 - Female pelvic inflammatory disease, unspecified Status: Acute Assessment and Plan: S/p drain placement. (7) Hyperchloremic metabolic acidosis: Code(s): E87.2 - Acidosis Status: Acute Assessment and Plan: 0.9%NS has been switched to 0.45% Subjective Date/time seen: 06/23/20 07:42 I feel better. Review of Systems Review of Systems: Narrative: Patient presented to ED due to LLQ abdominal pain. Constitutional: Comments: no chills, abdominal discomfort, rates pain at 4-5/10 in intensity. Gastrointestinal: Comments: passing gas but no BM's Genitourinary: Comments: incontinent Exam Narrative: Exam Narrative: Acutely ill looking, non toxic, lying in bed. Const: General: cooperative, comfortable, no acute distress, well developed, alert, awake, Physically active and ill appearing Nutritional Appearance: average body habitus Orientation/consciousness: patient oriented x3 HENMT: Head: normal to inspection and normocephalic Ears: hearing grossly normal bilaterally General nose exam: Normal external nose present Face and sinus: normal facial exam Eyes: General: appearance normal, both eyes and all related structures Pupils: Equal, round and reactive pupils present EOM: EOMs intact bilaterally Neck: Neck: full ROM, no lymphadenopathy and no JVD Lymphatic: no lymphadenopathy noted Resp: Effort & Inspection: normal respiratory effort Auscultation: clear to auscultation bilaterally Cardio: Rate: tachycardic Rhythm: regular rhythm Heart sounds: S1 normal heart sound present and S2 normal heart sound present Peripheral pulses: Peripheral pulses 2+ throughout GI: Inspection: other (Drain present in LLQ. ) GI Palp: Yes abdominal tenderness, Yes Firmness to palpation present (GI), Yes Tenderness to palpation present (GI) and Yes No hepatosplenomegaly present Skin: General skin exam: pallor and scars (Around umbilicus.) Lesions: no lesions Rashes: no rashes Trauma: no lacerations or abrasions Wounds: no wounds (Drain in LLQ) Neuro: General: patient oriented x3 and CN's II-XI intact bilaterally Cranial nerves: Yes Equal, round and reactive pupils present Speech: normal speech Motor exam (neuro): 5/5 motor strength present throughout Extrem: General: normal to inspection and no pedal edema Objective Data Vital Signs Vital Signs: Vital Signs - 24 hr 06/22/20 08:00 06/22/20 09:50 06/22/20 10:00 Temperature 100.1 F H 100.6 F H Pulse Rate 124 H 100 130 H Respiratory Rate 26 H 16 24 H Blood Pressure 132/70 148/85 H 122/82 Pulse Oximetry 97 97 97 06/22/20 10:54 06/22/20 11:24 06/22/20 12:00 Temperature 100.6 F H 99.4 F Pulse Rate 128 H Respiratory Rate Blood Pressure Pulse Oximetry 06/22/20 14:00 06/22/20 16:00 06/22/20 17:56 Temperature 98.8 F 98.6 F Pulse Rate 120 H 123 H 132 H Respiratory Rate 20 30 H Blood Pressure 110/61 140/78 Pulse Oxim
[2020-06-23 08:35] LABS: Hemoglobin 10.7 g/dL (12.0-15.0); Mean Corpuscular HGB Conc 32.4 g/dl (32-36); Mean Corpuscular Hemoglobin 27.6 pg (26-34); Mean Corpuscular Volume 85.3 fl (80-100); Mean Platelet Volume 9.2 fl (7.4-10.4); Platelet Count Result 414 k/mm3 (150-375); Red Blood Count 3.87 M/mm3 (4.2-5.4); Red Cell Distribution Width 15.4 % (11.5-14.5); White Blood Count 25.4 K/mm3 (4.5-10.0)
[2020-06-23] MEDS: guaiFENesin/DEXTROMETHORPHAN 10 ML UDC PO (08:36)
[2020-06-23] MEDS: KETOROLAC 30 MG/ML VIAL (*BKC) IV PUSH (08:49)
[2020-06-23] MEDS: clonazePAM (*CRX) 0.5 MG TABLET 2 MG PO ×3 (08:51→17:34)
[2020-06-23 08:55] LABS: Hemoglobin A1C 6.1 % (<5.7)
[2020-06-23 09:02] LABS: Band Neutrophils Percent 11 % (0-6); Lymphocytes Absolute Manual 0.76 K/mm3 (1.1-4.5); Monocytes Percent Manual 2 % (3-9); Neutrophils Absolute Manual 24.13 K/mm3 (1.7-7.2); Neutrophils Percent Manual 84 % (46-73); Platelet Estimate Increased (Adequate); Total Cells Counted 100
[2020-06-23 09:12] LABS: Anion Gap 8 mmol/L (8-16); Blood Urea Nitrogen 13 mg/dL (7-17); Calcium 7.8 mg/dL (8.4-10.2); Carbon Dioxide 19 mmol/L (22-30); Chloride 112 mmol/L (98-107); Estimated CRCL calculation 55 ml/min; Estimated Glomerular Filt Rate 53; Glucose 166 mg/dL (65-105); Magnesium 1.8 mg/dL (1.6-2.3); Sodium 139 mmol/L (137-145)
[2020-06-23 09:22] LABS: Glucose Point of Care 180 (65-105)
[2020-06-23] MEDS: ENOXAPARIN 40 MG/0.4 ML SYRINGE SUB-Q (11:15)
[2020-06-23 11:53] LABS: Glucose Point of Care 146 (65-105)
[2020-06-23] MEDS: traMADol HCL (*CRX) 50 MG TABLET PO ×2 (12:17→18:15)
--- NOTE | 2020-06-23 15:34 | PM.GYNPNOP ---
DIGITAL CARTOGRAPHER - A/P Time Spent With Patient Time: Total time spent is greater than 50% in coordination of care (as documented) at patient's floor/unit and/or counseling patient: pelvic Abscess- awaiting blood, vaginal and abscess cultures. WBC slowly improving continue current antibiotics. Appreciate medicine consult. Time with patient: less than 15 minutes DIGITAL CARTOGRAPHER- PN:Delbert Post-Op Subjective Date/time seen: 06/23/20 15:34 Patient reports abdominal pain a little better just tired of the chronic cough which makes her abdomen and chest hurt. Patient reports tolerated procedure well. Exam GI: GI Palp: Yes abdominal tenderness and Yes Guarding due to palpation present (GI) Other: Abdomen obese with some guarding on exam. pain in LLQ and pubic area. DIGITAL CARTOGRAPHER - PN: Obj Data Vital Signs Vital Signs: Vital Signs - 24 hr 06/22/20 16:00 06/22/20 17:56 06/22/20 20:00 Temperature 37.0 C Pulse Rate 123 H 132 H 124 H Respiratory Rate 30 H Blood Pressure 140/78 Pulse Oximetry 95 06/22/20 20:35 06/22/20 21:30 06/22/20 23:05 Temperature 37.2 C Pulse Rate 127 H 123 H 125 H Respiratory Rate 35 H 45 H 40 H Blood Pressure 130/75 129/72 Pulse Oximetry 91 95 06/23/20 00:00 06/23/20 02:00 06/23/20 04:00 Temperature 37.0 C Pulse Rate 118 H 117 H 111 H Respiratory Rate 28 H Blood Pressure 119/71 Pulse Oximetry 95 06/23/20 06:00 06/23/20 08:00 06/23/20 10:00 Temperature 36.9 C 37.0 C Pulse Rate 117 H 112 H 108 H Respiratory Rate 26 H 28 H Blood Pressure 117/66 111/70 Pulse Oximetry 95 96 06/23/20 14:00 Temperature 36.7 C Pulse Rate 107 H Respiratory Rate 24 H Blood Pressure 117/69 Pulse Oximetry 96 Intake/Output Intake/Output: Intake & Output 06/20/20 06/21/20 06/22/20 06/23/20 23:59 23:59 23:59 23:59 Intake Total 1999 1497 0340 Output Total 325 120 Balance 1999 1327 1800 Meds/Results Medications: Active Medications Generic Name Dose Route Start Last Admin Trade Name Freq PRN Reason Stop Dose Admin Butalbital/Aspirin/Caffeine 1 cap 06/21/20 19:49 06/23/20 13:32 Acetamin/Butalbital/Caffeine 1 Capsule PO 1 cap Q4H PRN Administration Headache Clonazepam 2 mg 06/21/20 17:17 06/23/20 12:19 Clonazepam (*Crx) 0.5 Mg Tablet PO 2 mg TID PRN Administration Anxiety Dextrose 12.5 gm 06/22/20 06:44 Dextrose 50% 25 Gm/50 Ml Syringe IV PUSH PRN PRN Hypoglycemia Protocol Enoxaparin Sodium 40 mg 06/24/20 09:00 06/23/20 11:15 Enoxaparin 40 Mg/0.4 Ml Syringe SUB-Q 40 mg DAILY LELIA Administration Glucagon 1 mg 06/22/20 06:44 Glucagon For Inj 1 Mg Vial IM PRN PRN Hypoglycemia Protocol Glucose 15 gm 06/22/20 06:44 Glucose Oral Gel 15 Gm Of Glucse In 37.5 Gm Tube PO PRN PRN Hypoglycemia Protocol Guaifenesin/Dextromethorphan 10 ml 06/22/20 06:43 06/23/20 08:36 Guaifenesin/Dextromethorphan 10 Ml Udc PO 10 ml Q4H PRN Administration Cough Hydromorphone HCl 0.5 mg 06/21/20 12:22 06/22/20 18:04 Hydromorphone Hcl Inj (*Crx) 1 Mg/Ml Syr IV PUSH 0.5 mg Q4H PRN Administration Pain Rated 7-10 Piperacillin/Tazobactam/Dextrose 3.375 gm in 50 mls @ 100 mls/hr 06/21/20 17:30 06/23/20 11:14 Zosyn 3.375 Gm/D5w 50ml Pm IVPB Infused Q6H LELIA Infusion Metronidazole 500 mg in 100 mls @ 100 mls/hr 06/21/20 18:30 06/23/20 13:14 Flagyl 500 Mg/Iso Soln 100 Ml IVPB Infused Q6H LELIA Infusion Dextrose 1,000 mls @ 100 mls/hr 06/22/20 06:44 Dextrose 5% 1,000 Ml IVPB PRN PRN Hypoglycemia Protocol Vancomycin HCl 1,500 mg in 500 mls @ 333.333 mls/hr 06/22/20 19:00 06/23/20 13:34 Vancomycin 1,500 Mg/D5w 500 Ml IVPB 250 mls/hr Q18H LELIA Administration Sodium Chloride 1,000 mls @ 100 mls/hr 06/23/20 15:15 Sodium Chloride 0.45% IV CONT .Q10H LELIA Insulin Aspart 2 - 5 units 06/22/20 08:00 06/23/20 13:38 Insulin Aspart (*Bkc) 100 Unit
[2020-06-23 16:37] LABS: Glucose Point of Care 136 (65-105)
[2020-06-23] MEDS: SODIUM CHLORIDE 0.45% 1,000 ML 100 ML IV CONT (17:25)
[2020-06-23] MEDS: PREGABALIN (*CRX) 50 MG CAPSULE 200 MG PO (17:36)
[2020-06-23] MEDS: rOPINIRole HCL 0.5 MG TABLET PO (21:45)
[2020-06-23 22:13] LABS: Glucose Point of Care 145 (65-105)
[2020-06-24] VITALS (14 sets, daily range): BP systolic 103–121; BP diastolic 61–78; PULSE 96–113; RESP 15–28; TEMP 36.5–38.9; O2SAT 90–97
[2020-06-24] MEDS: metroNIDAZOLE 500 MG/ISO 100ML 500 MG/100 ML BAG 100 MG IVPB ×4 (00:13→17:50)
[2020-06-24] MEDS: SODIUM CHLORIDE 0.45% 1,000 ML 100 ML IV CONT ×2 (04:38→21:34)
--- NOTE | 2020-06-24 07:43 | PM.IMPN ---
Progress Note: A&P Assessment and Plan (1) Hyperchloremic metabolic acidosis: Code(s): E87.2 - Acidosis Status: Acute Assessment and Plan: 0.9% Has been discontinued. Daily labs Started on .45% Will re assess the need for fluids in am (2) Fibromyalgia: Code(s): M79.7 - Fibromyalgia Status: Chronic Assessment and Plan: Continue home meds. (3) Cough: Code(s): R05 - Cough Status: Acute Assessment and Plan: Continue Tesalon pearls. (4) Abnormal glucose: Code(s): R73.09 - Other abnormal glucose Status: Acute Assessment and Plan: ISS as needed Continue to monitor. (5) Hypokalemia: Code(s): E87.6 - Hypokalemia Status: Acute Assessment and Plan: Replace as needed. Daily BMP (6) Severe sepsis: Code(s): A41.9 - Sepsis, unspecified organism; R65.20 - Severe sepsis without septic shock Status: Acute Assessment and Plan: Improved WBC noted however no Bands as initially had 10% Afebrile Continue supportive care Blood cx no growth Clinically improved Good urine output Strict /O's Vanc/Zosyn/Flagyl (7) Abscess of female pelvis: Code(s): N73.9 - Female pelvic inflammatory disease, unspecified Status: Acute Assessment and Plan: S/p drain Local care Continue to monitor Subjective Date/time seen: 06/24/20 07:43 I feel better Review of Systems Review of Systems: Narrative: Patient is a poor historian. Constitutional: Comments: no fevers, no chills, no rigors. Genitourinary: Comments: no vaginal discharge. Exam Narrative: Exam Narrative: Lying in bed. Const: General: cooperative, comfortable, alert, awake and ill appearing Nutritional Appearance: average body habitus Orientation/consciousness: patient oriented x3 HENMT: Head: normal to inspection and normocephalic Ears: hearing grossly normal bilaterally General nose exam: Normal external nose present Face and sinus: normal facial exam Mouth: Yes Normal oral and palatal mucosa present Eyes: General: appearance normal, both eyes and all related structures Pupils: Equal, round and reactive pupils present EOM: EOMs intact bilaterally Neck: Neck: normal visual inspection, no lymphadenopathy and no JVD Thyroid: thyroid normal Resp: Effort & Inspection: normal respiratory effort Auscultation: clear to auscultation bilaterally Cardio: Jugular venous distension: no JVD Rate: regular rate Rhythm: regular rhythm Heart sounds: S1 normal heart sound present and S2 normal heart sound present GI: Inspection: distended and other (Drain in the LLQ, purulent turbid in bag.) GI Palp: Yes Soft to palpation and Yes No hepatosplenomegaly present Auscultation: normal bowel sounds Skin: Lesions: no lesions Rashes: no rashes Trauma: no lacerations or abrasions Wounds: wounds noted (Drain present in the LLQ) Neuro: General: patient oriented x3 and CN's II-XI intact bilaterally Cranial nerves: Yes CN's II-XII intact bilaterally and Yes Equal, round and reactive pupils present Speech: normal speech Motor exam (neuro): 5/5 motor strength present throughout Sensory Exam: normal sensation Psych: Appearance: grossly normal Mental Status: mental status grossly normal Speech and movement: Normal speech and movement present Affect: Blunted affect present Attitude: cooperative Objective Data Vital Signs Vital Signs: Vital Signs - 24 hr 06/23/20 08:00 06/23/20 10:00 06/23/20 12:00 Temperature 98.6 F Pulse Rate 112 H 108 H 110 H Respiratory Rate 28 H Blood Pressure 111/70 Pulse Oximetry 96 06/23/20 14:00 06/23/20 16:00 06/23/20 18:00 Temperature 98.1 F 98.3 F Pulse Rate 107 H 105 H 111 H Respiratory Rate 24 H 24 H Blood Pressure 117/69 125/64 Pulse Oximetry 96 96 06/23/20 20:00 06/23/20 22:00 06/24/20 00:00 Temperature 99.4 F Pulse Rate 117 H 113 H 110 H Respiratory Rate 22 H Blood Pressure 115/63
[2020-06-24 08:34] LABS: Basophils Absolute Auto 0.1 K/mm3 (0.0-0.1); Basophils Percent Auto 0.4 % (0.2-1.2); Eosinophils Absolute Auto 0.1 K/mm3 (0-0.3); Eosinophils Percent Auto 0.2 % (0-4.4); Hematocrit 28.5 % (37.0-47.0); Hemoglobin 9.3 g/dL (12.0-15.0); Immature Granulocyte Absolute 0.32 K/mm3 (0.00-0.031); Immature Granulocyte Percent A 1.2 % (0-0.5); Lymphocytes Absolute Auto 1.68 K/mm3 (0.9-3.2); Lymphocytes Percent Auto 6.2 % (18.3-44.2); Mean Corpuscular HGB Conc 32.6 g/dl (32-36); Mean Corpuscular Hemoglobin 27.9 pg (26-34); Mean Corpuscular Volume 85.6 fl (80-100); Mean Platelet Volume 9.5 fl (7.4-10.4); Monocytes Absolute Auto 0.6 K/mm3 (0.1-0.6); Monocytes Percent Auto 2.2 % (2.6-8.5); Neutrophils Absolute Auto 24.2 K/mm3 (1.3-6.7); Neutrophils Percent Auto 89.8 % (45.5-73.1); Platelet Count Result 414 k/mm3 (150-375); Red Blood Count 3.33 M/mm3 (4.2-5.4); Red Cell Distribution Width 15.9 % (11.5-14.5)
[2020-06-24 08:38] LABS: Anion Gap 6 mmol/L (8-16); Blood Urea Nitrogen 18 mg/dL (7-17); Calcium 7.8 mg/dL (8.4-10.2); Carbon Dioxide 19 mmol/L (22-30); Chloride 110 mmol/L (98-107); Estimated CRCL calculation 44 ml/min; Estimated Glomerular Filt Rate 40; Glucose 160 mg/dL (65-105); Sodium 135 mmol/L (137-145)
[2020-06-24 09:23] LABS: Glucose Point of Care 159 (65-105)
[2020-06-24 11:56] LABS: Glucose Point of Care 142 (65-105)
--- NOTE | 2020-06-24 12:38 | PM.GYNPNOP ---
TEARER - A/P Assessment and plan (1) Abscess of female pelvis: Code(s): N73.9 - Female pelvic inflammatory disease, unspecified Status: Acute Assessment and Plan: Cultures still pending or neg. Will continue current abx. Afebile and feeling better. Drain still working. WBC up a little. Will continue daily labs. Medical management per hospitalist to continue and is much appreciated. Time Spent With Patient Time: Total time spent is greater than 50% in coordination of care (as documented) at patient's floor/unit and/or counseling patient: Time with patient: less than 15 minutes TEARER- PN:Subj Post-Op Subjective Date/time seen: 06/24/20 12:38 Subjective: patient reports feeling better, pain is well controlled, patient reports nausea (on and off; tolerating clears and occ solid) and other (up to chair for 3-4 hours and walking around room) Exam Const: General: no acute distress and alert Nutritional Appearance: obese Orientation/consciousness: patient oriented x3 Resp: Effort & Inspection: normal respiratory effort GI: Inspection: normal to inspection, Pannus present and other (drain with about 30 cc purlent fluid withing) GI Palp: Yes Soft to palpation and No Tenderness to palpation present (GI) TEARER - PN: Obj Data Vital Signs Vital Signs: Vital Signs - 24 hr 06/23/20 14:00 06/23/20 16:00 06/23/20 18:00 Temperature 98.1 F 98.3 F Pulse Rate 107 H 105 H 111 H Respiratory Rate 24 H 24 H Blood Pressure 117/69 125/64 Pulse Oximetry 96 96 06/23/20 20:00 06/23/20 22:00 06/24/20 00:00 Temperature 99.4 F Pulse Rate 117 H 113 H 110 H Respiratory Rate 22 H Blood Pressure 115/63 Pulse Oximetry 93 06/24/20 02:00 06/24/20 04:00 06/24/20 06:00 Temperature 97.7 F 98.4 F Pulse Rate 113 H 101 H 98 Respiratory Rate 22 H 22 H Blood Pressure 115/61 115/63 Pulse Oximetry 90 97 06/24/20 08:00 06/24/20 10:00 Temperature 99.1 F Pulse Rate 102 H 108 H Respiratory Rate 28 H Blood Pressure 113/63 Pulse Oximetry 93 Intake/Output Intake/Output: Intake & Output 06/21/20 06/22/20 06/23/20 06/24/20 23:59 23:59 23:59 23:59 Intake Total 1999 9895 0900 2100 Output Total 325 120 100 Balance 1999 0833 1286 1999 Meds/Results Medications: Active Medications Generic Name Dose Route Start Last Admin Trade Name Freq PRN Reason Stop Dose Admin Butalbital/Aspirin/Caffeine 1 cap 06/21/20 19:49 06/23/20 17:35 Acetamin/Butalbital/Caffeine 1 Capsule PO 1 cap Q4H PRN Administration Headache Clonazepam 2 mg 06/21/20 17:17 06/23/20 17:34 Clonazepam (*Crx) 0.5 Mg Tablet PO 2 mg TID PRN Administration Anxiety Dextrose 12.5 gm 06/22/20 06:44 Dextrose 50% 25 Gm/50 Ml Syringe IV PUSH PRN PRN Hypoglycemia Protocol Enoxaparin Sodium 40 mg 06/24/20 09:00 06/23/20 11:15 Enoxaparin 40 Mg/0.4 Ml Syringe SUB-Q 40 mg DAILY LELIA Administration Glucagon 1 mg 06/22/20 06:44 Glucagon For Inj 1 Mg Vial IM PRN PRN Hypoglycemia Protocol Glucose 15 gm 06/22/20 06:44 Glucose Oral Gel 15 Gm Of Glucse In 37.5 Gm Tube PO PRN PRN Hypoglycemia Protocol Guaifenesin/Dextromethorphan 10 ml 06/22/20 06:43 06/23/20 08:36 Guaifenesin/Dextromethorphan 10 Ml Udc PO 10 ml Q4H PRN Administration Cough Hydromorphone HCl 0.5 mg 06/21/20 12:22 06/22/20 18:04 Hydromorphone Hcl Inj (*Crx) 1 Mg/Ml Syr IV PUSH 0.5 mg Q4H PRN Administration Pain Rated 7-10 Piperacillin/Tazobactam/Dextrose 3.375 gm in 50 mls @ 100 mls/hr 06/21/20 17:30 06/24/20 11:20 Zosyn 3.375 Gm/D5w 50ml Pm IVPB 100 mls/hr Q6H LELIA Administration Metronidazole 500 mg in 100 mls @ 100 mls/hr 06/21/20 18:30 06/24/20 06:10 Flagyl 500 Mg/Iso Soln 100 Ml IVPB Infused Q6H LELIA Infusion Dextrose 1,000 mls @ 100 mls/hr 06/22/20 06:44 Dextrose 5% 1,000 Ml IVPB PRN PRN Hypoglycemia Protocol
[2020-06-24] MEDS: ACETAMINOPHEN 500 MG TABLET 1000 MG PO (15:17)
[2020-06-24 18:35] LABS: Glucose Point of Care 110 (65-105)
[2020-06-24] MEDS: rOPINIRole HCL 0.5 MG TABLET PO (20:13)
[2020-06-24] MEDS: traZODone HCL 50 MG TABLET 100 MG PO (20:13)
[2020-06-24 21:05] LABS: Glucose Point of Care 108 (65-105)
[2020-06-25] VITALS (14 sets, daily range): BP systolic 117–128; BP diastolic 65–72; PULSE 89–100; RESP 14–18; TEMP 36.4–37.7; O2SAT 95–98
[2020-06-25] MEDS: metroNIDAZOLE 500 MG/ISO 100ML 500 MG/100 ML BAG 100 MG IVPB ×4 (00:25→17:40)
[2020-06-25 01:14] LABS: Vancomycin Trough 11.2 ug/mL (10.0-20.0)
[2020-06-25] MEDS: ACETAMINOPHEN 500 MG TABLET 1000 MG PO (06:00)
[2020-06-25 08:28] LABS: Basophils Absolute Auto 0.1 K/mm3 (0.0-0.1); Basophils Percent Auto 0.2 % (0.2-1.2); Eosinophils Absolute Auto 0.1 K/mm3 (0-0.3); Eosinophils Percent Auto 0.3 % (0-4.4); Hematocrit 26.8 % (37.0-47.0); Hemoglobin 8.9 g/dL (12.0-15.0); Immature Granulocyte Absolute 0.39 K/mm3 (0.00-0.031); Immature Granulocyte Percent A 1.7 % (0-0.5); Lymphocytes Absolute Auto 1.36 K/mm3 (0.9-3.2); Lymphocytes Percent Auto 5.8 % (18.3-44.2); Mean Corpuscular HGB Conc 33.2 g/dl (32-36); Mean Corpuscular Hemoglobin 26.9 pg (26-34); Monocytes Absolute Auto 0.9 K/mm3 (0.1-0.6); Monocytes Percent Auto 3.8 % (2.6-8.5); Neutrophils Absolute Auto 20.5 K/mm3 (1.3-6.7); Neutrophils Percent Auto 88.2 % (45.5-73.1); Platelet Count Result 464 k/mm3 (150-375); Red Blood Count 3.31 M/mm3 (4.2-5.4); Red Cell Distribution Width 15.4 % (11.5-14.5); White Blood Count 23.3 K/mm3 (4.5-10.0)
[2020-06-25 08:54] LABS: Anion Gap 5 mmol/L (8-16); Blood Urea Nitrogen 15 mg/dL (7-17); Calcium 7.6 mg/dL (8.4-10.2); Carbon Dioxide 20 mmol/L (22-30); Chloride 112 mmol/L (98-107); Estimated CRCL calculation 51 ml/min; Estimated Glomerular Filt Rate 48; Glucose 138 mg/dL (65-105); Potassium 2.7 mmol/L (3.4-5.0); Sodium 137 mmol/L (137-145)
[2020-06-25 09:19] LABS: Glucose Point of Care 125 (65-105)
[2020-06-25] MEDS: MAGNESIUM SULF 2 GM/WATER 50ML 2 GM/50 ML BAG IVPB (09:54)
[2020-06-25] MEDS: ONDANSETRON INJ 4 MG/2 ML VIAL IV PUSH (10:27)
[2020-06-25 12:00] LABS: Glucose Point of Care 138 (65-105)
--- NOTE | 2020-06-25 13:32 | PM.IMPN ---
Progress Note: A&P Assessment and Plan (1) Abscess of female pelvis: Code(s): N73.9 - Female pelvic inflammatory disease, unspecified Status: Acute Assessment and Plan: -----Drain placed 06/22/20 with growth of normal skin senait on culture so far. Her WBC peaked at 36.2 but now back down to 23.3 which is improved. Continue Flagyl, Vanc, and zosyn at this time. May consider ID consult if pt does not improve. CT shows: 13.4 x 11.5 x 7.3 cm multiloculated cystic mass centered in the left adnexa. This finding may be an ovarian neoplasm or an abscess. Surgical evaluation is recommended. (2) Hyperchloremic metabolic acidosis: Code(s): E87.2 - Acidosis Status: Acute Assessment and Plan: -----Likely d/t fluids. They have been stopped. (3) Fibromyalgia: Code(s): M79.7 - Fibromyalgia Status: Chronic Assessment and Plan: -----Continue home meds. (4) Cough: Code(s): R05 - Cough Status: Acute Assessment and Plan: ------Continue Tesalon pearls. Mild and non distressing. If it continues consider CXR. No signs of aspiration or infection. (5) Abnormal glucose: Code(s): R73.09 - Other abnormal glucose Status: Acute Assessment and Plan: -----Pre-diabetic with A1c 6.1. Continue SSI (6) Hypokalemia: Code(s): E87.6 - Hypokalemia Status: Acute Assessment and Plan: -----Replaced orally this morning but made the pt immediately vomit. Switched to IV. Will give small dose again tonight. Mag also given. Recheck K and mg in AM (7) Severe sepsis: Code(s): A41.9 - Sepsis, unspecified organism; R65.20 - Severe sepsis without septic shock Status: Acute Assessment and Plan: -----Noted on admission but improved. HR and BP WNL. WBC trending down but still high. Drain intact, cultures being monitored. Continue treatment as outlined above. Blood cultures with no growth. Time Spent With Patient Time with patient: 25 - 35 minutes Subjective Date/time seen: 06/25/20 13:32 Interval history: Pt is a 49 y/o female here for abscess seen today. pt states the potassium pills made her sick this morning which caused her to throw up. She has not had any nausea since and ate lunch just fine. She has had intermittent diarrhea but nothing distressing. She continues to have abdominal pain. She denies CP, SOB, fevers, chills, or leg swelling. Review of Systems Review of Systems: All systems reviewed & are unremarkable except as noted in HPI and below Exam Narrative: Exam Narrative: General: Overweight pt resting in bed in NAD HEENT: normocephalic Neck: supple Neuro: Alert and oriented x4 CV:RRR. tele without arrythmias. HR on exam 90 Resp:CTA Abd: Soft, non distended. Drain intact with scant discharge. pain to palpation. Positive bowel sounds Extremities: No swelling, erythema, or pain to palpation. Objective Data Vital Signs Vital Signs: Vital Signs - 24 hr 06/24/20 14:30 06/24/20 15:17 06/24/20 16:00 Temperature 102.1 F H 102 F H Pulse Rate 104 H 101 H Respiratory Rate 15 Blood Pressure 121/67 Pulse Oximetry 95 06/24/20 16:17 06/24/20 17:54 06/24/20 20:00 Temperature 98.4 F 98.1 F Pulse Rate 97 96 Respiratory Rate 20 Blood Pressure 103/61 Pulse Oximetry 97 06/24/20 22:13 06/25/20 00:00 06/25/20 01:23 Temperature 98.3 F 98.0 F Pulse Rate 99 100 95 Respiratory Rate 18 18 Blood Pressure 121/78 128/72 Pulse Oximetry 95 95 06/25/20 04:00 06/25/20 06:00 06/25/20 06:08 Temperature 99.9 F H 99.6 F Pulse Rate 94 95 Respiratory Rate 16 Blood Pressure 124/71 Pulse Oximetry 95 06/25/20 07:12 06/25/20 08:00 06/25/20 10:25 Temperature 98 F 98.0 F Pulse Rate 97 89 Respiratory Rate 15 Blood Pressure 118/65 Pulse Oximetry 97 06/25/20 12:00 Temperature Pulse Rate 90 Respiratory Rate Blood Pressure Pulse Oximetry
[2020-06-25] MEDS: guaiFENesin/DEXTROMETHORPHAN 10 ML UDC PO (16:40)
[2020-06-25] MEDS: POTASSIUM CHLORIDE 20 MEQ TABLET PO (17:03)
[2020-06-25 17:15] LABS: Glucose Point of Care 147 (65-105)
[2020-06-25] MEDS: traZODone HCL 50 MG TABLET 100 MG PO (20:34)
[2020-06-25] MEDS: rOPINIRole HCL 0.5 MG TABLET PO (20:35)
[2020-06-25 21:21] LABS: Glucose Point of Care 159 (65-105)
--- NOTE | 2020-06-25 22:05 | PM.GYNPNOP ---
HUMAN RELATIONS PROFESSOR - A/P Assessment and plan (1) Abscess of female pelvis: Code(s): N73.9 - Female pelvic inflammatory disease, unspecified Status: Acute Assessment and Plan: Did have spike in fever last pm and redid blood cultures. No sig growth from abscess or from prior genital or blood cultures. WBC down and drain continuing to drain. Will see WBC in am and if not sig down, consider CT scan for follow up post radiologic drainage of abscess. H/H trending down as well with no blood in the drain. Possible due to hemolysis. Continue medical management with hospitalist team. Time Spent With Patient Time: Total time spent is greater than 50% in coordination of care (as documented) at patient's floor/unit and/or counseling patient: Time with patient: less than 15 minutes HUMAN RELATIONS PROFESSOR- PN:Delbert Post-Op Subjective Date/time seen: 06/25/20 22:05 Interval history: Patient states she feels about the same as yesterday. Still some abdominal discomfort. Exam Const: General: no acute distress GI: Inspection: other (drain continues with pus ) GI Palp: Yes abdominal tenderness (mild) and No Rebound tenderness present HUMAN RELATIONS PROFESSOR - PN: Obj Data Vital Signs Vital Signs: Vital Signs - 24 hr 06/24/20 22:13 06/25/20 00:00 06/25/20 01:23 Temperature 98.3 F 98.0 F Pulse Rate 99 100 95 Respiratory Rate 18 18 Blood Pressure 121/78 128/72 Pulse Oximetry 95 95 06/25/20 04:00 06/25/20 06:00 06/25/20 06:08 Temperature 99.9 F H 99.6 F Pulse Rate 94 95 Respiratory Rate 16 Blood Pressure 124/71 Pulse Oximetry 95 06/25/20 07:12 06/25/20 08:00 06/25/20 10:25 Temperature 98 F 98.0 F Pulse Rate 97 89 Respiratory Rate 15 Blood Pressure 118/65 Pulse Oximetry 97 06/25/20 12:00 06/25/20 13:45 06/25/20 16:00 Temperature 97.8 F Pulse Rate 90 93 93 Respiratory Rate 14 Blood Pressure 121/72 Pulse Oximetry 97 06/25/20 17:40 06/25/20 21:25 Temperature 97.5 F L 97.6 F Pulse Rate 93 92 Respiratory Rate 16 16 Blood Pressure 118/70 117/69 Pulse Oximetry 97 98 Intake/Output Intake/Output: Intake & Output 06/22/20 06/23/20 06/24/20 06/25/20 23:59 23:59 23:59 23:59 Intake Total 6770 3440 4240 3706 Output Total 325 634 146 0319 Balance 6445 4924 3726 0775 Meds/Results Medications: Active Medications Generic Name Dose Route Start Last Admin Trade Name Freq PRN Reason Stop Dose Admin Acetaminophen 1,000 mg 06/24/20 14:52 06/25/20 06:00 Acetaminophen 500 Mg Tablet PO 1,000 mg Q6H PRN Administration Fever Butalbital/Aspirin/Caffeine 1 cap 06/21/20 19:49 06/25/20 16:44 Acetamin/Butalbital/Caffeine 1 Capsule PO 1 cap Q4H PRN Administration Headache Clonazepam 2 mg 06/21/20 17:17 06/23/20 17:34 Clonazepam (*Crx) 0.5 Mg Tablet PO 2 mg TID PRN Administration Anxiety Dextrose 12.5 gm 06/22/20 06:44 Dextrose 50% 25 Gm/50 Ml Syringe IV PUSH PRN PRN Hypoglycemia Protocol Enoxaparin Sodium 40 mg 06/24/20 09:00 06/25/20 08:14 Enoxaparin 40 Mg/0.4 Ml Syringe SUB-Q Not Given DAILY LELIA Glucagon 1 mg 06/22/20 06:44 Glucagon For Inj 1 Mg Vial IM PRN PRN Hypoglycemia Protocol Glucose 15 gm 06/22/20 06:44 Glucose Oral Gel 15 Gm Of Glucse In 37.5 Gm Tube PO PRN PRN Hypoglycemia Protocol Guaifenesin/Dextromethorphan 10 ml 06/22/20 06:43 06/25/20 16:40 Guaifenesin/Dextromethorphan 10 Ml Udc PO 10 ml Q4H PRN Administration Cough Hydromorphone HCl 0.5 mg 06/21/20 12:22 06/22/20 18:04 Hydromorphone Hcl Inj (*Crx) 1 Mg/Ml Syr IV PUSH 0.5 mg Q4H PRN Administration Pain Rated 7-10 Piperacillin/Tazobactam/Dextrose 3.375 gm in 50 mls @ 100 mls/hr 06/21/20 17:30 06/25/20 17:10 Zosyn 3.375 Gm/D5w 50ml Pm IVPB Infused Q6H LELIA Infusion Metronidazole 500 mg in 100 mls @ 100 mls/hr 06/21/20 18:30 06/25/20 18:40 Flagyl 500 Mg/Iso Soln 100 Ml IVPB Infused
[2020-06-26] VITALS (18 sets, daily range): BP systolic 110–144; BP diastolic 69–88; PULSE 87–112; RESP 12–18; TEMP 36.2–36.9; O2SAT 94–100
[2020-06-26] MEDS: metroNIDAZOLE 500 MG/ISO 100ML 500 MG/100 ML BAG 100 MG IVPB ×5 (01:12→23:34)
[2020-06-26 05:58] LABS: Basophils Absolute Auto 0.1 K/mm3 (0.0-0.1); Basophils Percent Auto 0.3 % (0.2-1.2); Eosinophils Absolute Auto 0.2 K/mm3 (0-0.3); Eosinophils Percent Auto 0.6 % (0-4.4); Hematocrit 30.5 % (37.0-47.0); Immature Granulocyte Absolute 0.49 K/mm3 (0.00-0.031); Immature Granulocyte Percent A 1.9 % (0-0.5); Lymphocytes Percent Auto 7.4 % (18.3-44.2); Mean Corpuscular HGB Conc 32.8 g/dl (32-36); Mean Corpuscular Hemoglobin 27.5 pg (26-34); Mean Corpuscular Volume 83.8 fl (80-100); Mean Platelet Volume 9.2 fl (7.4-10.4); Monocytes Absolute Auto 1.3 K/mm3 (0.1-0.6); Monocytes Percent Auto 5.2 % (2.6-8.5); Neutrophils Absolute Auto 21.6 K/mm3 (1.3-6.7); Neutrophils Percent Auto 84.6 % (45.5-73.1); Platelet Count Result 573 k/mm3 (150-375); Red Blood Count 3.64 M/mm3 (4.2-5.4); Red Cell Distribution Width 15.7 % (11.5-14.5); White Blood Count 25.5 K/mm3 (4.5-10.0)
[2020-06-26 06:13] LABS: Alanine Aminotransferase 12 U/L (4-35); Albumin Level 2.7 g/dL (3.5-5.1); Alkaline Phosphatase 125 U/L (38-126); Anion Gap 7 mmol/L (8-16); Aspartate Amino Transferase 18 U/L (14-36); Bilirubin,Total 0.5 mg/dL (0.2-1.3); Blood Urea Nitrogen 11 mg/dL (7-17); Calcium 7.9 mg/dL (8.4-10.2); Carbon Dioxide 23 mmol/L (22-30); Chloride 111 mmol/L (98-107); Estimated CRCL calculation 60 ml/min; Estimated Glomerular Filt Rate 59; Glucose 137 mg/dL (65-105); Magnesium 1.9 mg/dL (1.6-2.3); Potassium 3.1 mmol/L (3.4-5.0); Sodium 141 mmol/L (137-145)
--- NOTE | 2020-06-26 09:19 | PM.IMPN ---
Progress Note: A&P Assessment and Plan (1) Abscess of female pelvis: Code(s): N73.9 - Female pelvic inflammatory disease, unspecified Status: Acute Assessment and Plan: -----Drain placed 06/22/20 with growth of normal skin senait on culture so far. Her WBC peaked at 36.2 and is up a bit today at 25.5. Her last fever was 48 hours ago. Because of her persistent pain and worsening leukocytosis I am going to obtain a CT of the abdomen pelvis as well as a chest x-ray. At this point, COVID-19 would be less likely since the patient has a known source of infection but her cough is getting worse. Her chest x-ray was normal on admission. If there are any signs of infiltrates, will order COVID-19 testing. Continue Flagyl, Vanc, and zosyn at this time. I have asked Dr. winter to consult and I appreciate his further recommendations (2) Hyperchloremic metabolic acidosis: Code(s): E87.2 - Acidosis Status: Acute Assessment and Plan: -----improved, likely due to fluids. These have been stopped as the patient is eating and drinking. (3) Fibromyalgia: Code(s): M79.7 - Fibromyalgia Status: Chronic Assessment and Plan: -----Continue home meds. (4) Cough: Code(s): R05 - Cough Status: Acute Assessment and Plan: ------see above. Obtain chest x-ray. Continue Tesalon pearls. No reports of aspiration or abnormal lung sounds (5) Abnormal glucose: Code(s): R73.09 - Other abnormal glucose Status: Acute Assessment and Plan: -----Pre-diabetic with A1c 6.1. Continue SSI (6) Hypokalemia: Code(s): E87.6 - Hypokalemia Status: Acute Assessment and Plan: -----low again today. Magnesium will be started daily and I will give her another dose of potassium today. Recheck in the morning (7) Severe sepsis: Code(s): A41.9 - Sepsis, unspecified organism; R65.20 - Severe sepsis without septic shock Status: Acute Assessment and Plan: -----Noted on admission but improved. HR and BP WNL. Drain intact, cultures being monitored. Continue treatment as outlined above. Blood cultures with no growth. Additional Plan Subjective Date/time seen: 06/26/20 09:19 Interval history: Pt is a 49 y/o female here for abscess seen today. Patient reports that her abdominal pain is a 5/10 and is about the same as yesterday. She mostly has complaints today of a dry cough and a migraine. She said the migraine typically feels like her normal migraines and she requested the Fioricet. She states the cough started while she was here and is dry in nature. She does not feel short of breath while in bed or out of bed. She has not been around anybody has been diagnosed with COVID-19. She denies body aches, shortness of breath, fevers, chills, constipation but has had a few episodes of soft diarrhea last pain yesterday. She has not had any further nausea or vomiting. Exam Narrative: Exam Narrative: General: Overweight pt resting in bed in NAD HEENT: normocephalic Neck: supple Neuro: Alert and oriented x4 CV:RRR. tele without arrythmias. HR on exam 90 Resp:CTA, no conversational dyspnea Abd: Soft, non distended. Drain intact with scant zuniga purulent discharge. pain to palpation. Positive bowel sounds Extremities: No swelling, erythema, or pain to palpation. Objective Data Vital Signs Vital Signs: Vital Signs - 24 hr 06/25/20 10:25 06/25/20 12:00 06/25/20 13:45 Temperature 98.0 F 97.8 F Pulse Rate 89 90 93 Respiratory Rate 15 14 Blood Pressure 118/65 121/72 Pulse Oximetry 97 97 06/25/20 16:00 06/25/20 17:40 06/25/20 20:00 Temperature 97.5 F L Pulse Rate 93 93 89 Respiratory Rate 16 Blood Pressure 118/70 Pulse Oximetry 97 06/25/20 21:25 06/26/20 01:48 06/26/20 04:00 Temperature 97.6 F 97.2 F L Pulse Rate 92 94 94 Respiratory Rate 16 16 Blood Pressure 117/69 143/69 H Pulse
--- NOTE | 2020-06-26 09:32 | PC.NURSE ---
Call to pharmacy regarding missing 0900 magnesium oxide pill.
--- NOTE | 2020-06-26 09:48 | PM.GYNPNOP ---
SPEECH PATHOLOGIST - A/P Assessment and plan (1) Abscess of female pelvis: Code(s): N73.9 - Female pelvic inflammatory disease, unspecified Status: Acute Assessment and Plan: There is continued drainage with drain of purulent fluid. WBC not coming down. Patient appears better this am but still distended. Discussed with patient CT scan today and hospitalist has also consulted ID. Discussed with patient may still need to proceed with surgery if CT scan shows significant abscess. She voices understanding but really does not want surgery unless only choice. Time Spent With Patient Time: Total time spent is greater than 50% in coordination of care (as documented) at patient's floor/unit and/or counseling patient: Time with patient: less than 15 minutes SPEECH PATHOLOGIST- PN:Delbert Post-Op Subjective Date/time seen: 06/26/20 09:48 Interval history: Patient main complaint is cough. She states her pain is worst when she coughs. Only nausea was related to the potassium. No nausea this am. +BM with loose stool. Exam GI: Inspection: distended and other (drain bandage dry with min. old blood) GI Palp: Yes abdominal tenderness (mild) Percussion: Yes tympanic to percussion SPEECH PATHOLOGIST - PN: Obj Data Vital Signs Vital Signs: Vital Signs - 24 hr 06/25/20 10:25 06/25/20 12:00 06/25/20 13:45 Temperature 98.0 F 97.8 F Pulse Rate 89 90 93 Respiratory Rate 15 14 Blood Pressure 118/65 121/72 Pulse Oximetry 97 97 06/25/20 16:00 06/25/20 17:40 06/25/20 20:00 Temperature 97.5 F L Pulse Rate 93 93 89 Respiratory Rate 16 Blood Pressure 118/70 Pulse Oximetry 97 06/25/20 21:25 06/26/20 01:48 06/26/20 04:00 Temperature 97.6 F 97.2 F L Pulse Rate 92 94 94 Respiratory Rate 16 16 Blood Pressure 117/69 143/69 H Pulse Oximetry 98 97 06/26/20 06:10 06/26/20 08:00 Temperature 98.3 F Pulse Rate 98 87 Respiratory Rate 18 Blood Pressure 142/74 H Pulse Oximetry 97 Intake/Output Intake/Output: Intake & Output 06/23/20 06/24/20 06/25/20 06/26/20 23:59 23:59 23:59 23:59 Intake Total 3440 4240 4206 700 Output Total 092 782 8446 900 Balance 3320 1854 2566 -118 Meds/Results Medications: Active Medications Generic Name Dose Route Start Last Admin Trade Name Freq PRN Reason Stop Dose Admin Acetaminophen 1,000 mg 06/24/20 14:52 06/25/20 06:00 Acetaminophen 500 Mg Tablet PO 1,000 mg Q6H PRN Administration Fever Butalbital/Aspirin/Caffeine 1 cap 06/21/20 19:49 06/26/20 09:18 Acetamin/Butalbital/Caffeine 1 Capsule PO 1 cap Q4H PRN Administration Headache Clonazepam 2 mg 06/21/20 17:17 06/23/20 17:34 Clonazepam (*Crx) 0.5 Mg Tablet PO 2 mg TID PRN Administration Anxiety Dextrose 12.5 gm 06/22/20 06:44 Dextrose 50% 25 Gm/50 Ml Syringe IV PUSH PRN PRN Hypoglycemia Protocol Enoxaparin Sodium 40 mg 06/24/20 09:00 06/26/20 09:31 Enoxaparin 40 Mg/0.4 Ml Syringe SUB-Q Not Given DAILY LELIA Glucagon 1 mg 06/22/20 06:44 Glucagon For Inj 1 Mg Vial IM PRN PRN Hypoglycemia Protocol Glucose 15 gm 06/22/20 06:44 Glucose Oral Gel 15 Gm Of Glucse In 37.5 Gm Tube PO PRN PRN Hypoglycemia Protocol Guaifenesin/Dextromethorphan 10 ml 06/22/20 06:43 06/25/20 16:40 Guaifenesin/Dextromethorphan 10 Ml Udc PO 10 ml Q4H PRN Administration Cough Hydromorphone HCl 0.5 mg 06/21/20 12:22 06/22/20 18:04 Hydromorphone Hcl Inj (*Crx) 1 Mg/Ml Syr IV PUSH 0.5 mg Q4H PRN Administration Pain Rated 7-10 Piperacillin/Tazobactam/Dextrose 3.375 gm in 50 mls @ 100 mls/hr 06/21/20 17:30 06/26/20 06:30 Zosyn 3.375 Gm/D5w 50ml Pm IVPB Infused Q6H LELIA Infusion Metronidazole 500 mg in 100 mls @ 100 mls/hr 06/21/20 18:30 06/26/20 07:42 Flagyl 500 Mg/Iso Soln 100 Ml IVPB Infused Q6H LELIA Infusion Dextrose 1,000 mls @ 100 mls/hr 06/22/20 06:44 Dextrose 5% 1,000 Ml IVPB PRN PRN
[2020-06-26 09:59] LABS: Glucose Point of Care 125 (65-105)
[2020-06-26] MEDS: MAGNESIUM OXIDE 400 MG TABLET PO (10:00)
[2020-06-26 10:31] LABS: CRP 6.7 mg/dL (<1.0)
--- NOTE | 2020-06-26 11:52 | PM.GYNPNOP ---
FARMWORKER DAIRY - A/P Time Spent With Patient Time: Total time spent is greater than 50% in coordination of care (as documented) at patient's floor/unit and/or counseling patient: Time with patient: less than 15 minutes FARMWORKER DAIRY- PN:Delbert Post-Op Subjective Date/time seen: 06/26/20 11:52 Interval history: Patient CT scan with 2 new abscesses and persistent but smaller prior abscess. Discussed with patient and recommend to proceed with surgery. Discussed exploratory laparotomy through vertical skin incision and possible NEAL-BSO. Reviewed risks of infection, bleeding, injury to internal organs (dafne. bowel, bladder, ureters, ovaries, tubes, and uterus), general anesthesia. Agrees to proceed. Will add patient case on at end of the day today. FARMWORKER DAIRY - PN: Obj Data Vital Signs Vital Signs: Vital Signs - 24 hr 06/25/20 12:00 06/25/20 13:45 06/25/20 16:00 Temperature 97.8 F Pulse Rate 90 93 93 Respiratory Rate 14 Blood Pressure 121/72 Pulse Oximetry 97 06/25/20 17:40 06/25/20 20:00 06/25/20 21:25 Temperature 97.5 F L 97.6 F Pulse Rate 93 89 92 Respiratory Rate 16 16 Blood Pressure 118/70 117/69 Pulse Oximetry 97 98 06/26/20 01:48 06/26/20 04:00 06/26/20 06:10 Temperature 97.2 F L 98.3 F Pulse Rate 94 94 98 Respiratory Rate 16 18 Blood Pressure 143/69 H 142/74 H Pulse Oximetry 97 97 06/26/20 08:00 Temperature Pulse Rate 87 Respiratory Rate Blood Pressure Pulse Oximetry Intake/Output Intake/Output: Intake & Output 06/23/20 06/24/20 06/25/20 06/26/20 23:59 23:59 23:59 23:59 Intake Total 3440 4240 4206 700 Output Total 126 967 5395 900 Balance 3320 0440 3021 -200 Meds/Results Medications: Active Medications Generic Name Dose Route Start Last Admin Trade Name Freq PRN Reason Stop Dose Admin Acetaminophen 1,000 mg 06/24/20 14:52 06/25/20 06:00 Acetaminophen 500 Mg Tablet PO 1,000 mg Q6H PRN Administration Fever Butalbital/Aspirin/Caffeine 1 cap 06/21/20 19:49 06/26/20 09:18 Acetamin/Butalbital/Caffeine 1 Capsule PO 1 cap Q4H PRN Administration Headache Clonazepam 2 mg 06/21/20 17:17 06/23/20 17:34 Clonazepam (*Crx) 0.5 Mg Tablet PO 2 mg TID PRN Administration Anxiety Dextrose 12.5 gm 06/22/20 06:44 Dextrose 50% 25 Gm/50 Ml Syringe IV PUSH PRN PRN Hypoglycemia Protocol Enoxaparin Sodium 40 mg 06/24/20 09:00 06/26/20 09:31 Enoxaparin 40 Mg/0.4 Ml Syringe SUB-Q Not Given DAILY LELIA Glucagon 1 mg 06/22/20 06:44 Glucagon For Inj 1 Mg Vial IM PRN PRN Hypoglycemia Protocol Glucose 15 gm 06/22/20 06:44 Glucose Oral Gel 15 Gm Of Glucse In 37.5 Gm Tube PO PRN PRN Hypoglycemia Protocol Guaifenesin/Dextromethorphan 10 ml 06/22/20 06:43 06/25/20 16:40 Guaifenesin/Dextromethorphan 10 Ml Udc PO 10 ml Q4H PRN Administration Cough Hydromorphone HCl 0.5 mg 06/21/20 12:22 06/22/20 18:04 Hydromorphone Hcl Inj (*Crx) 1 Mg/Ml Syr IV PUSH 0.5 mg Q4H PRN Administration Pain Rated 7-10 Piperacillin/Tazobactam/Dextrose 3.375 gm in 50 mls @ 100 mls/hr 06/21/20 17:30 06/26/20 06:30 Zosyn 3.375 Gm/D5w 50ml Pm IVPB Infused Q6H LELIA Infusion Metronidazole 500 mg in 100 mls @ 100 mls/hr 06/21/20 18:30 06/26/20 07:42 Flagyl 500 Mg/Iso Soln 100 Ml IVPB Infused Q6H LELIA Infusion Dextrose 1,000 mls @ 100 mls/hr 06/22/20 06:44 Dextrose 5% 1,000 Ml IVPB PRN PRN Hypoglycemia Protocol Vancomycin HCl 1,500 mg in 500 mls @ 333.333 mls/hr 06/22/20 19:00 06/25/20 22:25 Vancomycin 1,500 Mg/D5w 500 Ml IVPB Infused Q18H LELIA Infusion Potassium Chloride 500 mls @ 125 mls/hr 06/26/20 09:45 06/26/20 10:00 Kcl 40 Meq/D5w 500 Ml Peripheral IVPB 06/26/20 13:44 125 mls/hr ONCE ONE Administration Insulin Aspart 2 - 5 units 06/22/20 08:00 06/26/20 09:32 Insulin Aspart (*Bkc) 100 Units/Ml SUB-Q Not Given TIDWM LELIA
--- NOTE | 2020-06-26 11:57 | PCPTNOTE ---
Treatment is on hold per pending surgery this afternoon. Attempted physical therapy however patient was overwhelmed once given the news that she would be having surgery. Will resume orders following surgery.
[2020-06-26 11:58] LABS: Glucose Point of Care 119 (65-105)
[2020-06-26] MEDS: guaiFENesin/DEXTROMETHORPHAN 10 ML UDC PO (14:14)
--- NOTE | 2020-06-26 14:40 | WPDANESEPPF ---
Anes - Initial Pre Proc Eval Procedure: Operation Date: 06/26/20 17:00 Proposed Procedures p Exploratory Laparotomy, Possible Total Abdominal Hysterectomy, Possible Bilateral Salpingo-Oophorectomy - Naya Mejia MD Date/Time: 06/26/20 14:40 Surgeon: Naya Mejia MD Pre Op Diagnosis: pelvic abscess Patient Data Age: 49 Gender: F Height: 1.52 m Weight: 90.5 kg Last Vital Signs Temp 36.6 C 06/26/20 12:00 Pulse 95 06/26/20 12:00 Resp 18 06/26/20 12:00 BP 144/81 H 06/26/20 12:00 Pulse Ox 97 06/26/20 12:00 Allergies Allergy/AdvReac Type Severity Reaction Status Date / Time No Known Allergies Allergy Mild Unverified 06/21/20 08:52 Home Medications Medication Instructions Recorded Confirmed Type [id number]-hhzbbxlokxsci-ciyx 1 cap BID PRN 06/21/20 06/21/20 History [Fioricet] cariprazine [Vraylar] 1.5 mg PO DAILY 06/21/20 06/21/20 History clonazepam 2 mg PO TID PRN 06/21/20 06/21/20 History pregabalin [Lyrica] 200 mg PO BID PRN 06/21/20 06/21/20 History ropinirole 0.5 mg PO BID PRN 06/21/20 06/21/20 History trazodone 100 mg PO HS PRN 06/21/20 06/21/20 History vortioxetine [Trintellix] 20 mg PO DAILY 06/21/20 06/21/20 History Laboratory Tests 06/25/20 06/25/20 06/26/20 16:26 20:31 05:38 WBC 25.5 K/mm3 H K/mm3 (4.5-10.0) RBC 3.64 M/mm3 L M/mm3 (4.2-5.4) Hgb 10.0 g/dL L g/dL (12.0-15.0) Hct 30.5 % L % (37.0-47.0) MCV 83.8 fl fl (80-100) MCH 27.5 pg pg (26-34) MCHC 32.8 g/dl g/dl (32-36) RDW 15.7 % H % (11.5-14.5) Plt Count 573 k/mm3 H k/mm3 (150-375) MPV 9.2 fl fl (7.4-10.4) Immature Gran % (Auto) 1.9 % H % (0-0.5) Neut % (Auto) 84.6 % H % (45.5-73.1) Lymph % (Auto) 7.4 % L % (18.3-44.2) [place] % (Auto) 5.2 % % (2.6-8.5) Eos % (Auto) 0.6 % % (0-4.4) Baso % (Auto) 0.3 % % (0.2-1.2) Lymph # (Auto) 1.90 K/mm3 K/mm3 (0.9-3.2) [place] # (Auto) 1.3 K/mm3 H K/mm3 (0.1-0.6) Eos # (Auto) 0.2 K/mm3 K/mm3 (0-0.3) Baso # (Auto) 0.1 K/mm3 K/mm3 (0.0-0.1) Abs Immat Gran (auto) 0.49 K/mm3 H K/mm3 (0.00-0.031) Absolute Neuts (auto) 21.6 K/mm3 H K/mm3 (1.3-6.7) Absolute Nucleated RBC 0.0 K/mm3 K/mm3 (0.0-0.012) Nucleated RBC % 0.0 % % (0.0-0.2) Sodium Potassium Chloride Carbon Dioxide Anion Gap BUN Creatinine Estim Creat Clear Calc Estimated GFR Glucose POC Capillary Glucose 147 mg/dl H mg/dl 159 mg/dl H mg/dl (65-105) (65-105) Calcium Magnesium Total Bilirubin Direct Bilirubin AST ALT Alkaline Phosphatase C-Reactive Protein Total Protein Albumin 06/26/20 06/26/20 06/26/20 05:38 05:38 09:24 WBC RBC Hgb Hct MCV MCH MCHC RDW Plt Count MPV Immature Gran % (Auto) Neut % (Auto) Lymph % (Auto) [place] % (Auto) Eos % (Auto) Baso % (Auto) Lymph # (Auto) [place] # (Auto) Eos # (Auto) Baso # (Auto) Abs Immat Gran (auto) Absolute Neuts (auto) Absolute Nucleated RBC Nucleated RBC % Sodium 141 mmol/L mmol/L (137-145) Potassium 3.1 mmol/L L mmol/L (3.4-5.0) Chloride 111 mmol/L H mmol/L (98-107) Carbon Dioxide 23 mmol/L mmol/L (22-30) Anion Gap 7 mmol/L L mmol/L (8-16) BUN 11 mg/dL mg/dL (7-17) Creatini
--- NOTE | 2020-06-26 15:49 | PC.NURSE ---
To OR per Bed, Left forearm IV with K rider running, Right forearm IV with Vancomycin running. Report given to Sully.
[2020-06-26] MEDS: LACTATED RINGERS 1,000 ML 30 ML IV CONT ×2 (16:10→19:45)
[2020-06-26 16:53] LABS: Glucose Point of Care 223 (65-105)
--- NOTE | 2020-06-26 17:01 | WPDHPUPDATE1 ---
History and Physical Update Update Date/Time: 06/26/20 17:01 History and Physical has been reviewed, including an updated exam of the patient. There are NO changes in the patient's condition. Risks, benefits, and alternatives have been discussed and questions answered. Patient agrees to proceed with procedure.
--- NOTE | 2020-06-26 17:25 | SUR.PREOP ---
1700: Pre-op RN tried for the Type and Screen two times and the veins blew. LAP REGULATOR aware. LAP REGULATOR also aware of BG at 223.
--- NOTE | 2020-06-26 19:30 | PM.PROC ---
Procedure Note - Detailed Date of procedure: 06/26/20 Pre-op diagnosis: pelvic abscesses Post-op diagnosis: same Procedure performed: Exploratory laparotomy, adhesiolysis Description of procedure: This is a 49-year-old woman who I am asked to see intraoperatively for a difficult surgical procedure. Patient was already intubated and under general anesthesia with an open abdomen from her gynecologic procedure. She has a midline lower laparotomy incision with Balfor retractor in place and multiple laps packing the bowel out of the pelvis. I examined the abdominal cavity and identified the sigmoid colon. As the sigmoid colon was tracking down into the pelvis into the upper rectum, there were dense adhesions of the left ovarian mass and posterior side of the uterus to the sigmoid colon and rectum. These were carefully taken down using blunt dissection. As these adhesions were taken down, was able to ensure that there was no injury to the bowel and no fistulous communications between the bowel and uterus. The left ureter was not definitively identified, but appeared to be far enough away from the location where the uterus was in the midline. Dr. Mejia then completed her portion of the hysterectomy and left salpingo-oophorectomy. I then placed a 19 round Favian drain through a right lower quadrant incision at the skin. The drain was directed down into the pelvis and along the left side of the sigmoid colon. It was secured in place using a 3 0 nylon drain stitch. After 1 final inspection of the small bowel and colon, there were no other abnormalities noted. The closure of the abdomen was then completed by Dr. Mejia. Please refer to her operative note for details. [facility] Sur[facility]: Tadeo Salvador DO Estimated blood loss (mL): 20 Drains: Yes (19 Round Favian) Complications: No immediate complications Condition: stable Disposition: floor Findings: This is a 49-year-old woman who am asked to evaluate intraoperatively. She presented with a left adnexal cystic mass that was initially drained percutaneously, but she was not showing any signs of improvement and repeat CT showed 2 new abscesses forming. I mass to evaluate due to dense adhesions of the sigmoid colon and rectum to where the abscess cavities are and also where the uterus and left adnexa are. After carefully evaluating the lower abdomen, I was able to identify the sigmoid colon in its typical location. As the colon was run distally, there were dense adhesions of the sigmoid colon up to the left ovary and posterior side of the uterus. The left ovarian vascular pedicle was already ligated, and it appeared that the right adnexal structures and right side of the uterus had already been freed up with the proper vessels ligated. I carefully dissected the sigmoid colon off of the uterus and left adnexa. I inspected the colon and there appeared to be no injuries to the colon or rectum. I carefully inspected the left pelvis to try to identify the left ureter, however due to inflammatory reaction it was difficult to definitively identify. Since this appeared far enough away from where the sigmoid colon and rectum were, no further attempt was made to dissect out the left ureter. A 19 round Favian drain was placed in the pelvis to monitor for any further ongoing infection or bleeding. Please refer to Dr. Mejia's operative report for her portion of the procedure.
--- NOTE | 2020-06-26 19:46 | PM.PROC ---
Procedure Note - Detailed Date of procedure: 06/26/20 Pre-op diagnosis: pelvic abscesses Post-op diagnosis: same Procedure performed: Exploratory laparotomy; TAHBSO; adhesiolysis extensive Description of procedure: The patient was taken to the operating room and placed under general anesthesia in the dorsal supine position. Gonzalez catheter was placed. Extensive cutaneous tinea was noted on the inner thighs and vulva. A large Tegaderm was placed over the previously placed drain in the left lower quadrant. The patient was then prepped and draped in the usual sterile fashion. A vertical skin incision is made with a scalpel and carried down to the underlying lying layer of fascia. The fascial incision was extended superiorly and inferiorly. The fascial edges were grasped with Ochsner and the tissue dissected off using Metzenbaum scissors. The peritoneum was tented and entered with Metzenbaum. the incision was extended with blunt traction. Manual exploration of the pelvis and lower abdomen was performed and no identifiable structures were noted. All structures are densely adherent to one another. At this point Dr. Salvador was consulted but was noted to be 45 minutes away. Using mainly blunt dissection with a sterile hand and a lap sponge the anterior adhesions were taken down the uterus was identified and the dissection was continued to the patient's right the round ligament was identified. The bowel for was placed and the bowel packed away using moist laparotomy sponges. The skin incision and fascial incisions are extended approximately 2cm above the umbilicus. The round ligament was doubly ligated transected and the anterior leaf of the broad ligament incised. The bladder is dissected off using blunt dissection from this plane. The posterior leaf of the broad ligament is followed and the right tube and ovary are identified very densely adherent to the underlying pelvic sidewall and the bowel the tissue is bluntly dissected and a small abscess pocket is identified within the tube. The window was created in the posterior leaf of the broad ligament the pedicle was clamped doubly, transected, and suture ligated with 0 Vicryl. This allowed the posterior fundus to continue to be dissected from the bowel and the cul-de-sac was eventually able to be freed. The uterine vessel is doubly clamped, transected, and suture ligated with 0 Vicryl. The cardinal and uterosacral ligaments on the right were clamped, transected, and suture ligated with 0 Vicryl. Attention was then turned to the left pelvic sidewall the bladder flap was fully developed on the left side from the previous dissection on the right. The suspected left tube and ovary were noted to be in a ball of tissue without identifiable structure and I was concerned that there was possible bowel within this tissue so this dissection was halted until Dr. Salvador arrived. He arrived approximately 5 minutes after this point. Dr. Salvador then scrubbed into the case and completed the dissection from the bowel and the cul-de-sac and the bowel and the lower portion of the left pelvis. Please see his dictation for further details. After this dissection had taken place Dr. Salvador and I determined that the ball of tissue had no bowel in it and was strictly abscess tube and ovary. The blood supply to this mass was clamped, transected, and suture ligated with 0 Vicryl. The uterine vessels were then clamped, transected, and suture ligated with 0 Vicryl. The cardinal and uterosacral ligaments were serially clamped, transected, and suture ligated with 0 Vicryl. The vaginal cuff was entered anteriorly with a scalpel. The vaginal cuff was grasped with a long Allis clamp. The specimen is amputated using Aston scissors. The vaginal cuff was grasped as the specimen was amputated. The vaginal cuff is then closed using 0 Vicryl in a running lock stitch. Good hemostasis of the cuff is noted. The abscess pocket had extensive necroti
[2020-06-26] MEDS: fentaNYL CITRATE INJ (*CRX) 100 MCG/2 ML VIAL 25 MCG IV PUSH ×5 (19:59→20:25)
[2020-06-26 20:09] LABS: Glucose Point of Care 170 (65-105)
[2020-06-26 20:20] LABS: Hematocrit 27.2 % (37.0-47.0); Hemoglobin 9.3 g/dL (12.0-15.0)
[2020-06-26] MEDS: HYDROmorphone HCL INJ (*CRX) 1 MG/ML SYR 0.25 MG IV PUSH ×4 (20:35→21:04)
--- NOTE | 2020-06-26 20:42 | SUR.PHASEI ---
2036 DR WISEMAN AWARE OF H&H RESULTS 9.[address] CECILY SCHROEDER (INFECTIOUS DISEASE) AT BEDSIDE TO SEE PT.
--- NOTE | 2020-06-26 21:19 | WPDCN ---
Assessment and Plan Assessment and plan (1) Abscess of female pelvis: Code(s): N73.9 - Female pelvic inflammatory disease, unspecified Status: Acute Assessment and Plan: pelvic abscess with no obvious source. History of appendectomy. Abscess originating from perforated viscus? Versus origin. At this point patient has a CT-guided drain placed which was showing mixed organism including prevotella, Staph aureus and Streptococcus. Patient is on Zosyn, vancomycin and Flagyl. Continue current antibiotic therapy Status post laparotomy this evening. Will follow up in intraoperative cultures and adjust antibiotics accordingly. WBC count is trending down at 25,000. Admitting white count was 36,000. blood cultures are so far negative. (2) Depression: Code(s): F32.9 - Major depressive disorder, single episode, unspecified Status: Acute Assessment and Plan: History of depression and bipolar disorder. Unable to assess patient is currently postop in recovery room sedated. HPI Data of Consult Date/Time: 06/26/20 21:19 Requesting Physician: Naya Mejia MD Primary Care Provider: Clarissa Sosa, Consult Narrative Narrative: Clemente Blake is a 49 year old female With a history of bipolar disorder, obesity and fibromyalgia presented to the hospital with 3 day history of lower abdominal pain and pelvic pain. Patient patient in the emergency room was found to have fever and hypotension. Her white count on admission was 36,000. CT scan of the abdomen and pelvis in the emergency room showed a 13.4 x 11.5 x 7.3 multiloculated cystic mass centered in the left adnexa. Patient subsequently had a CT-guided drain in place and pus extracted. Cultures from the past showed prevotella, Staphylococcus and group B strep. Patient was placed on Zosyn, vancomycin and Flagyl. Infectious Disease was consulted for further antibiotics management. Patient this evening was taken to the operating room. Patient was seen in the recovery. Patient at this point with nonverbal postanesthesia. History was obtained from the chart. Review of Systems Review of Systems: ROS unobtainable: Yes unobtainable due to mental status ( I was unable to obtain review of systems is patient is postsurgical recov) PMFSH Past Medical History Medical History (Updated 06/26/20 @ 14:42 by Bryce Da Silva MD) Abscess of female pelvis Anxiety Bipolar 1 disorder Cough Depression Fibromyalgia Hypokalemia Obesity Severe sepsis Surgical History Surgical History H/O: History of appendectomy Social History Social History Smoking status: Never smoker Second hand tobacco smoke exposure: No Alcohol intake: never Substance use: never Gender identity (if verbalized by the patient): Female Spiritual care concerns: No Meds Home Medications and Allergies Home Medications Medication Instructions Recorded Confirmed Type [id number] 1 cap BID PRN 06/21/20 06/21/20 History [Fioricet] cariprazine [Vraylar] 1.5 mg PO DAILY 06/21/20 06/21/20 History clonazepam 2 mg PO TID PRN 06/21/20 06/21/20 History pregabalin [Lyrica] 200 mg PO BID PRN 06/21/20 06/21/20 History ropinirole 0.5 mg PO BID PRN 06/21/20 06/21/20 History trazodone 100 mg PO HS PRN 06/21/20 06/21/20 History vortioxetine [Trintellix] 20 mg PO DAILY 06/21/20 06/21/20 History Allergies Allergy/AdvReac Type Severity Reaction Status Date / Time No Known Allergies Allergy Mild Verified 06/26/20 17:12 Vital Signs Vital Signs - 24 hr 06/25/20 21:25 06/26/20 01:48 06/26/20 04:00 Temperature 36.4 C 36.2 C L Pulse Rate 92 94 94 Respiratory Rate 16 16 Blood Pressure 117/69 143/69 H Pulse Oximetry 98 97 06/26/20 06:10 06/26/20 08:00 06/26/20 12:00 Temperature 36.8 C 36.6 C Pulse Rate 98 87
[2020-06-26] MEDS: LACTATED RINGERS 1,000 ML 125 ML IV CONT (23:00)
--- NOTE | 2020-06-26 23:06 | PC.NURSE ---
pt received from OR per bed, report received by Shonda. pt arrived with stable vitals, drowsy, complaints of severe pain. Pt ordered for SUPPLY PERSON fentanyl, orders clarified with Dr. Mejia.
[2020-06-27] VITALS (11 sets, daily range): BP systolic 111–126; BP diastolic 64–87; PULSE 79–118; RESP 16–20; TEMP 35.8–36.9; O2SAT 93–97
[2020-06-27] MEDS: BETAMETHASONE/CLOTRIMAZOLE CR 15 GM TUBE 1 APPLIC TOPICAL ×3 (02:00→21:00)
[2020-06-27 05:17] LABS: Basophils Absolute Auto 0.1 K/mm3 (0.0-0.1); Basophils Percent Auto 0.4 % (0.2-1.2); Eosinophils Absolute Auto 0.1 K/mm3 (0-0.3); Eosinophils Percent Auto 0.4 % (0-4.4); Hematocrit 27.5 % (37.0-47.0); Hemoglobin 9.1 g/dL (12.0-15.0); Immature Granulocyte Absolute 0.63 K/mm3 (0.00-0.031); Immature Granulocyte Percent A 2.1 % (0-0.5); Lymphocytes Percent Auto 7.6 % (18.3-44.2); Mean Corpuscular HGB Conc 33.1 g/dl (32-36); Mean Corpuscular Hemoglobin 27.9 pg (26-34); Mean Corpuscular Volume 84.4 fl (80-100); Mean Platelet Volume 9.2 fl (7.4-10.4); Monocytes Absolute Auto 2.2 K/mm3 (0.1-0.6); Monocytes Percent Auto 7.2 % (2.6-8.5); Neutrophils Absolute Auto 24.9 K/mm3 (1.3-6.7); Neutrophils Percent Auto 82.3 % (45.5-73.1); Platelet Count Result 649 k/mm3 (150-375); Red Blood Count 3.26 M/mm3 (4.2-5.4); Red Cell Distribution Width 15.7 % (11.5-14.5); White Blood Count 30.3 K/mm3 (4.5-10.0)
[2020-06-27 05:22] LABS: Anion Gap 4 mmol/L (8-16); Blood Urea Nitrogen 7 mg/dL (7-17); CRP 7.1 mg/dL (<1.0); Calcium 7.4 mg/dL (8.4-10.2); Carbon Dioxide 25 mmol/L (22-30); Chloride 108 mmol/L (98-107); Estimated CRCL calculation 67 ml/min; Estimated Glomerular Filt Rate > 60; Glucose 188 mg/dL (65-105); Sodium 137 mmol/L (137-145)
[2020-06-27] MEDS: metroNIDAZOLE 500 MG/ISO 100ML 500 MG/100 ML BAG 100 MG IVPB ×3 (05:58→18:10)
--- NOTE | 2020-06-27 06:03 | PC.NURSE ---
Addendum entered by Ernesto Lentz RN 06/27/20 06:51: Medication verified with Nayely Perdomo Patient was instructed on use of BARREL LEVELER. BARREL LEVELER rate is 10mcg/6min, max is 200mcg/4h PRN. Pump is locked. Original Note: Fentanyl BARREL LEVELER order changed per telephone order from Dr. Mejia. New order is for 10mcg patient controlled with NO continuous infusion. Order was unable to be completed in NOV at start time of 2234. Pharmacy and [facility] were both called and neither were able to fix the issue. Pharmacy staff change is at 0630 and will check with new pharmacy staff if they have any fix for the issue.
[2020-06-27] MEDS: LACTATED RINGERS 1,000 ML 125 ML IV CONT (06:42)
--- NOTE | 2020-06-27 07:00 | PC.NURSE ---
FILM RECORDIST shift intake 220mcg. Pt alert,oriented, drowsy but easily awoken throughout shift.
[2020-06-27 07:41] LABS: Glucose Point of Care 198 (65-105)
[2020-06-27] MEDS: MAGNESIUM OXIDE 400 MG TABLET PO (08:28)
[2020-06-27] MEDS: ONDANSETRON INJ 4 MG/2 ML VIAL IV PUSH (09:18)
--- NOTE | 2020-06-27 09:38 | PC.NURSE ---
[facility] [employer] PROFESSOR order DC'd per order. Patient tolerating PO diet. Wasted 16ml narcotic with Halley Garcia RN.
--- NOTE | 2020-06-27 09:42 | PM.IMPN ---
Progress Note: A&P Assessment and Plan (1) Abscess of female pelvis: Code(s): N73.9 - Female pelvic inflammatory disease, unspecified Status: Acute Assessment and Plan: Patient presents with abdominal pain, CT abdomen with multiple large abscesses up to 13.[address]-guided drain placement 06/22. She is now POD#1 s/p TAHBSO 06/[address] Mejia. Appreciate antibiotic recommendations by infectious disease. Today she continues on IV vancomycin (day 6), Flagyl (day 7), and Zosyn (day 7). Hold PT/OT for today given her extensive surgery last evening. Reevaluate tomorrow. (2) Fibromyalgia: Code(s): M79.7 - Fibromyalgia Status: Chronic Assessment and Plan: Continue home regimen. (3) Cough: Code(s): R05 - Cough Status: Acute Assessment and Plan: Not noted today. Chest XR shows left basilar atelectasis. Encouraged incentive spirometry. (4) Abnormal glucose: Code(s): R73.09 - Other abnormal glucose Status: Acute Assessment and Plan: Prediabetic with A1c 6.1. Continue to monitor with Accu-cheks and cover with SSI. (5) Hypokalemia: Code(s): E87.6 - Hypokalemia Status: Acute Assessment and Plan: K+ low at 3.0 this morning and replaced. Recheck this afternoon. Continue daily magnesium replacement and monitor BMP + Mg. (6) Severe sepsis: Code(s): A41.9 - Sepsis, unspecified organism; R65.20 - Severe sepsis without septic shock Status: Acute Assessment and Plan: Noted on admission but improving. Sinus tachycardia noted. She has been afebrile. Continue to monitor vital signs and urine output. Suspected source is pelvic abscesses, see above. Blood cultures 06/24 are pending with no growth to date. New wound cultures from the OR 06/26 are pending. Additional Plan Thank you for allowing me to participate in this patient's care. Please do not hesitate to call for any questions or concerns. We will follow with you while she is here. Subjective Date/time seen: 06/27/20 0815 Interval history: Ms. Blake is a 49yo F admitted for pelvic abscesses now POD#1 s/p TAHBSO. She rates her pain 5 or 6 out of 10 severity at time of my assessment. She denies any nausea or vomiting, about to try breakfast soon. She denies chest pain or shortness of breath. Review of Systems Review of Systems: All systems reviewed & are unremarkable except as noted in HPI and below Exam Narrative: Exam Narrative: General: Female resting Semi-law's position in bed in no acute distress. HEENT: Normocephalic, EOMI, oral mucosa tacky. Cardiovascular: Rate and rhythm are regular. Respiratory: Lungs clear to auscultation anteriorly and laterally. Non-labored breathing. Abdomen: Soft, dressing to midline abdomen with scant blood, abdominal drain with serosanguineous output, bowel sounds hypoactive but present. Extremities: Peripheral pulses intact. No edema. Neuro: No focal neurological deficits. Speech is clear. Gonzalez catheter intact draining clear yellow urine. Objective Data Vital Signs Vital Signs: Last Vital Signs Temp 98.1 F 06/27/20 09:35 Pulse 114 H 06/27/20 09:35 Resp 20 06/27/20 09:35 BP 122/75 06/27/20 09:35 Pulse Ox 97 06/27/20 11:12 Intake/Output Intake/Output: Intake & Output 06/24/20 06/25/20 06/26/20 06/27/20 23:59 23:59 23:59 23:59 Intake Total 4240 4206 2240 1300 Output Total 600 1515 1330 650 Balance 3640 5971 830 650 Meds/Results Medications: Active Medications Generic Name Dose Route Start Last Admin Trade Name Freq PRN Reason Stop Dose Admin Acetaminophen 1,000 mg 06/24/20 14:52 06/25/20 06:00 Acetaminophen 500 Mg Tablet PO 1,00
[2020-06-27] MEDS: HYDROcodone/acetaminophen (*CRX) 10-325 MG TABLET 1 TAB PO ×3 (10:03→22:59)
--- NOTE | 2020-06-27 11:44 | PCOTNOTE ---
Per PA, hold therapy this date due to abdominal surgery. PA to hold therapy orders and resume when patient medically appropriate.
[2020-06-27 11:49] LABS: Glucose Point of Care 284 (65-105)
--- NOTE | 2020-06-27 12:02 | WPDANESPN ---
Anes - Prog Note Post-Op Date/Time: 06/27/20 12:02 Cardiovascular status: normal Respiratory status: normal Airway patency: baseline Mental status: baseline Post-Op hydration status: normal Vital Signs: Last Vital Signs Temp 36.7 C 06/27/20 09:35 Pulse 114 H 06/27/20 09:35 Resp 20 06/27/20 09:35 BP 122/75 06/27/20 09:35 Pulse Ox 97 06/27/20 11:12 Pain Score (VAS): 4 I/O: Intake & Output 06/26/20 06/27/20 06/27/20 23:59 07:59 15:59 Intake Total 1390 1300 0 Output Total 430 650 40 Balance 960 650 -40 Laboratory Tests 06/27/20 04:50 06/27/20 04:50 06/26/20 06/26/20 06/26/20 16:51 17:23 19:57 WBC RBC Hgb Hct MCV MCH MCHC RDW Plt Count MPV Immature Gran % (Auto) Neut % (Auto) Lymph % (Auto) Perry % (Auto) Eos % (Auto) Baso % (Auto) Lymph # (Auto) Perry # (Auto) Eos # (Auto) Baso # (Auto) Abs Immat Gran (auto) Absolute Neuts (auto) Absolute Nucleated RBC Nucleated RBC % Sodium Potassium Chloride Carbon Dioxide Anion Gap BUN Creatinine Estim Creat Clear Calc Estimated GFR Glucose POC Capillary Glucose 223 H 170 H Calcium C-Reactive Protein Blood Type A Positive Antibody Screen Negative 06/26/20 06/27/20 06/27/20 20:14 04:50 04:50 WBC 30.3 H RBC 3.26 L Hgb 9.3 L 9.1 L Hct 27.2 L 27.5 L MCV 84.4 MCH 27.9 MCHC 33.1 RDW 15.7 H Plt Count 649 H MPV 9.2 Immature Gran % (Auto) 2.1 H Neut % (Auto) 82.3 H Lymph % (Auto) 7.6 L Perry % (Auto) 7.2 Eos % (Auto) 0.4 Baso % (Auto) 0.4 Lymph # (Auto) 2.30 Perry # (Auto) 2.2 H Eos # (Auto) 0.1 Baso # (Auto) 0.1 Abs Immat Gran (auto) 0.63 H Absolute Neuts (auto) 24.9 H Absolute Nucleated RBC 0.0 Nucleated RBC % 0.0 Sodium 137 Potassium 3.0 L Chloride 108 H Carbon Dioxide 25 Anion Gap 4 L BUN 7 Creatinine 0.90 Estim Creat Clear Calc 67 Estimated GFR > 60 Glucose 188 H POC Capillary Glucose Calcium 7.4 L C-Reactive Protein 7.1 H Blood Type Antibody Screen 06/27/20 06/27/20 07:39 11:46 WBC RBC Hgb Hct MCV MCH MCHC RDW Plt Count MPV Immature Gran % (Auto) Neut % (Auto) Lymph % (Auto) Perry % (Auto) Eos % (Auto) Baso % (Auto) Lymph # (Auto) Perry # (Auto) Eos # (Auto) Baso # (Auto) Abs Immat Gran (auto) Absolute Neuts (auto) Absolute Nucleated RBC Nucleated RBC % Sodium Potassium Chloride Carbon Dioxide Anion Gap BUN Creatinine Estim Creat Clear Calc Estimated GFR Glucose POC Capillary Glucose 198 H 284 H Calcium C-Reactive Protein Blood Type Antibody Screen Microbiology 06/26/20 17:50 Abscess Anaerobic Culture - Preliminary 06/26/20 18:03 Abscess Anaerobic Culture - Preliminary 06/21/20 09:11 Blood Blood Culture - Final 06/22/20 09:21 Abscess Anaerobic Culture - Preliminary Prevotella species 06/22/20 09:21 Abscess Aerobic Culture - Final Post-procedural complaints: none Patient Feedback: Patient satisfied with anesthetic care.
--- NOTE | 2020-06-27 12:07 | PM.GYNPNOP ---
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 lap with [id number] appears to be tubo-ovarian for abscesses as both adnexa were abscessed afebrile increased WBC today expected in post op state increase diet and amabulate hayes out at noon continue abx and await operative cultures Postoperative Procedures: Procedures Operation Date: 06/26/20 17:00 Actual Procedures Side Surgeon p Exploratory Laparotomy, Total Abdominal Hysterectomy with Bilateral Salpingo-Oophorectomy Naya Mejia MD Postoperative day: 1 Postoperative plan: routine post-op care, advance diet and other Time Spent With Patient Time: Total time spent is greater than 50% in coordination of care (as documented) at patient's floor/unit and/or counseling patient: Time with patient: 15 - 25 minutes 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[employer] - PN: Obj Data Vital Signs Vital Signs: Vital Signs - 24 hr 06/26/20 16:03 06/26/20 19:45 06/26/20 20:00 Temperature 97.6 F 98.3 F Pulse Rate 97 104 H 109 H Respiratory Rate 16 12 12 Blood Pressure 144/88 H 134/74 125/72 Pulse Oximetry 97 100 100 06/26/20 20:15 06/26/20 20:30 06/26/20 20:45 Temperature Pulse Rate 112 H 109 H 109 H Respiratory Rate 12 12 16 Blood Pressure 133/75 128/76 112/85 Pulse Oximetry 94 94 94 06/26/20 21:00 06/26/20 21:15 06/26/20 21:30 Temperature 98.4 F 97.3 F L Pulse Rate 108 H 111 H 111 H Respiratory Rate 14 14 18 Blood Pressure 127/82 110/81 117/78 Pulse Oximetry 98 95 98 06/26/20 21:45 06/26/20 22:15 06/26/20 23:15 Temperature 97.3 F L 97.6 F 98.2 F Pulse Rate 111 H 110 H 111 H Respiratory Rate 18 18 18 Blood Pressure 128/70 111/70 113/76 Pulse Oximetry 96 96 95 06/26/20 23:59 06/27/20 00:00 06/27/20 04:00 Temperature 97.9 F 98.5 F Pulse Rate 110 H 112 H 115 H Respiratory Rate 12 16 20 Blood Pressure 122/76 126/87 Pulse Oximetry 95 93 96 06/27/20 08:00 06/27/20 09:35 06/27/20 11:12 Temperature 98.1 F Pulse Rate 118 H 114 H Respiratory Rate 20 Blood Pressure 122/75 Pulse Oximetry 95 97 Intake/Output Intake/Output: Intake & Output 06/24/20 06/25/20 06/26/20 06/27/20 23:59 23:59 23:59 23:59 Intake Total 4240 4206 2240 1300 Output Total 600 1515 1330 690 Balance 3640 2691 910 610 Meds/Results Medications: Active Medications Generic Name Dose Route Start Last Admin Trade Name Freq PRN Reason Stop Dose Admin Acetaminophen 1,000 mg 06/24/20 14:52 06/25/20 06:00 Acetaminophen 500 Mg Tablet PO 1,000 mg Q6H PRN Administration Fever Hydrocodone Bitart/Acetaminophen 1 tab 06/27/20 09:35 Hydrocodone/Acetaminophen (*Crx) 5-325 Mg Tablet PO Q4H PRN Pain Rated 4-6 Hydrocodone Bitart/Acetaminophen 1 tab 06/27/20 07:58 06/27/20 10:03 Hydrocodone/Acetaminophen (*Crx) 10-325 Mg Tablet PO 1 tab Q4H PRN Administration Pain Rated 7-10 Butalbital/Aspirin/Caffeine 1 cap 06/21/20 19:49 06/26/20 09:18 Acetamin/Butalbital/Caffeine 1 Capsule PO 1 cap Q4H PRN Administration Headache Clonazepam 2 mg 06/21/20 17:17 06/23/20 17:34 Clonazepam (*Crx) 0.5 Mg Tablet PO 2 mg TID PRN Administration Anxiety Clotrimazole 1 applic 06/26/20 21:23 06/27/20 08:29 Betamethasone/Clotrimazole Cr 15 Gm Tube TOPICAL 1 applic Q12HR LELIA Administration Dextrose 12.5 gm 06/22/20 06:44 Dextrose 50% 25 Gm/50
[2020-06-27] MEDS: INSULIN ASPART (*BKC) 100 UNITS/ML SUB-Q (12:25)
[2020-06-27 14:38] LABS: Hemoglobin A1C 5.9 % (<5.7)
[2020-06-27 14:42] LABS: Anion Gap 5 mmol/L (8-16); Blood Urea Nitrogen 5 mg/dL (7-17); Calcium 7.2 mg/dL (8.4-10.2); Carbon Dioxide 23 mmol/L (22-30); Chloride 105 mmol/L (98-107); Estimated CRCL calculation 84 ml/min; Estimated Glomerular Filt Rate > 60; Glucose 222 mg/dL (65-105); Magnesium 1.7 mg/dL (1.6-2.3); Potassium 3.7 mmol/L (3.4-5.0); Sodium 133 mmol/L (137-145)
[2020-06-27 16:26] LABS: Glucose Point of Care 182 (65-105)
[2020-06-27 19:18] LABS: Hematocrit 25.6 % (37.0-47.0); Hemoglobin 8.2 g/dL (12.0-15.0); Mean Corpuscular Hemoglobin 28.5 pg (26-34); Mean Corpuscular Volume 88.9 fl (80-100); Mean Platelet Volume 9.3 fl (7.4-10.4); Platelet Count Result 605 k/mm3 (150-375); Red Blood Count 2.88 M/mm3 (4.2-5.4); Red Cell Distribution Width 14.6 % (11.5-14.5); White Blood Count 34.3 K/mm3 (4.5-10.0)
[2020-06-27 19:26] LABS: Alanine Aminotransferase 8 U/L (4-35); Albumin Level 2.2 g/dL (3.5-5.1); Alkaline Phosphatase 63 U/L (38-126); Anion Gap 5 mmol/L (8-16); Aspartate Amino Transferase 18 U/L (14-36); Bilirubin,Total 0.5 mg/dL (0.2-1.3); Blood Urea Nitrogen 5 mg/dL (7-17); Calcium 7.2 mg/dL (8.4-10.2); Carbon Dioxide 23 mmol/L (22-30); Chloride 105 mmol/L (98-107); Estimated CRCL calculation 74 ml/min; Estimated Glomerular Filt Rate > 60; Glucose 169 mg/dL (65-105); Potassium 3.5 mmol/L (3.4-5.0); Sodium 133 mmol/L (137-145)
[2020-06-27 23:22] LABS: Glucose Point of Care 167 (65-105)
[2020-06-28] VITALS (10 sets, daily range): BP systolic 117–136; BP diastolic 59–82; PULSE 95–107; RESP 18–20; TEMP 36–37.1; O2SAT 93–98; BMI 38.9
[2020-06-28] MEDS: metroNIDAZOLE 500 MG/ISO 100ML 500 MG/100 ML BAG 100 MG IVPB ×3 (00:41→12:20)
[2020-06-28 06:22] LABS: Hematocrit 22.2 % (37.0-47.0); Hemoglobin 7.4 g/dL (12.0-15.0); Mean Corpuscular HGB Conc 33.3 g/dl (32-36); Mean Corpuscular Hemoglobin 27.5 pg (26-34); Mean Corpuscular Volume 82.5 fl (80-100); Mean Platelet Volume 8.9 fl (7.4-10.4); Platelet Count Result 672 k/mm3 (150-375); Red Blood Count 2.69 M/mm3 (4.2-5.4); Red Cell Distribution Width 15.5 % (11.5-14.5); White Blood Count 34.6 K/mm3 (4.5-10.0)
[2020-06-28 06:23] LABS: Alanine Aminotransferase 9 U/L (4-35); Albumin Level 2.4 g/dL (3.5-5.1); Alkaline Phosphatase 111 U/L (38-126); Anion Gap 4 mmol/L (8-16); Aspartate Amino Transferase 14 U/L (14-36); Bilirubin,Total 0.2 mg/dL (0.2-1.3); Blood Urea Nitrogen 5 mg/dL (7-17); Calcium 7.5 mg/dL (8.4-10.2); Carbon Dioxide 28 mmol/L (22-30); Chloride 104 mmol/L (98-107); Estimated CRCL calculation 67 ml/min; Estimated Glomerular Filt Rate > 60; Glucose 155 mg/dL (65-105); Magnesium 1.9 mg/dL (1.6-2.3); Potassium 2.9 mmol/L (3.4-5.0); Sodium 136 mmol/L (137-145)
[2020-06-28] MEDS: HYDROcodone/acetaminophen (*CRX) 10-325 MG TABLET 1 TAB PO ×3 (07:02→20:22)
--- NOTE | 2020-06-28 07:19 | PM.GYNPNOP ---
MONOGRAM MAKER - A/P Assessment and plan (1) TOA (tubo-ovarian abscess): Code(s): N70.93 - Salpingitis and oophoritis, unspecified Status: Acute Assessment and Plan: afebrile, CBC pending this am continue antibiotics + GI function so continue to advance diet PT to return for ambulation help cough improved abdominal exam improved this am minimal drain output (about 40 cc per shift) last pm H/H down a little but vitals stable chemistry imbalances to be addressed by hospitalist team Postoperative Procedures: Procedures Operation Date: 06/26/20 17:00 Actual Procedures Side Surgeon p Exploratory Laparotomy, Total Abdominal Hysterectomy with Bilateral Salpingo-Oophorectomy Naya Mejia MD Time Spent With Patient Time: Total time spent is greater than 50% in coordination of care (as documented) at patient's floor/unit and/or counseling patient: Time with patient: less than 15 minutes MONOGRAM MAKER- PN:Subj Post-Op Subjective Date/time seen: 06/28/20 07:19 Interval history: . Subjective: patient reports feeling better, pain is well controlled, patient is tolerating oral intake, patient reports nausea (occassional) and other (+BM formed but loose; states cough is better) Exam Narrative: Exam Narrative: visibly appears better bandage removed, inc c/d/i, left iodiform gauze in place drain site ok with bloody fluid appearing more clear and not purulent abdomen less distended less abdominal tenderness MONOGRAM MAKER - PN: Obj Data Vital Signs Vital Signs: Vital Signs - 24 hr 06/27/20 08:00 06/27/20 09:35 06/27/20 11:12 Temperature 98.1 F Pulse Rate 118 H 114 H Respiratory Rate 20 Blood Pressure 122/75 Pulse Oximetry 95 97 06/27/20 12:00 06/27/20 13:14 06/27/20 16:00 Temperature 96.4 F L Pulse Rate 114 H 108 H 107 H Respiratory Rate 20 Blood Pressure 113/64 Pulse Oximetry 97 06/27/20 18:00 06/27/20 20:00 06/27/20 22:00 Temperature 97.1 F L 97.6 F Pulse Rate 79 107 H 107 H Respiratory Rate 18 20 Blood Pressure 111/67 115/70 Pulse Oximetry 97 97 06/28/20 00:00 06/28/20 02:00 06/28/20 04:00 Temperature 98.7 F Pulse Rate 103 H 102 H 100 Respiratory Rate 18 Blood Pressure 129/59 L Pulse Oximetry 96 Intake/Output Intake/Output: Intake & Output 06/25/20 06/26/20 06/27/20 06/28/20 23:59 23:59 23:59 23:59 Intake Total 4206 2240 4350 100 Output Total 1515 1330 1965 Balance 2691 910 2385 100 Meds/Results Medications: Active Medications Generic Name Dose Route Start Last Admin Trade Name Freq PRN Reason Stop Dose Admin Acetaminophen 1,000 mg 06/24/20 14:52 06/25/20 06:00 Acetaminophen 500 Mg Tablet PO 1,000 mg Q6H PRN Administration Fever Hydrocodone Bitart/Acetaminophen 1 tab 06/27/20 09:35 Hydrocodone/Acetaminophen (*Crx) 5-325 Mg Tablet PO Q4H PRN Pain Rated 4-6 Hydrocodone Bitart/Acetaminophen 1 tab 06/27/20 07:58 06/28/20 07:02 Hydrocodone/Acetaminophen (*Crx) 10-325 Mg Tablet PO 1 tab Q4H PRN Administration Pain Rated 7-10 Butalbital/Aspirin/Caffeine 1 cap 06/21/20 19:49 06/26/20 09:18 Acetamin/Butalbital/Caffeine 1 Capsule PO 1 cap Q4H PRN Administration Headache Clonazepam 2 mg 06/21/20 17:17 06/23/20 17:34 Clonazepam (*Crx) 0.5 Mg Tablet PO 2 mg TID PRN Administration Anxiety Clotrimazole 1 applic 06/26/20 21:23 06/27/20 21:00 Betamethasone/Clotrimazole Cr 15 Gm Tube TOPICAL 1 applic Q12HR LELIA Administration Dextrose 12.5 gm 06/22/20 06:44 Dextrose 50% 25 Gm/50 Ml Syringe IV PUSH PRN PRN Hypoglycemia Protocol Glucagon 1 mg 06/22/20 06:44 Glucagon For Inj 1 Mg Vial IM PRN PRN Hypoglycemia Protocol Glucose 15 gm 06/22/20 06:44 Glucose Oral Gel 15 Gm Of Glucse In 37.5 Gm Tube PO PRN PRN Hypoglycemia Protocol Guaifenesin/Dextromethorphan 10 ml 06/22/20 06:43 06/26/20 14:14 Guaifenesin/Dextro
[2020-06-28 08:06] LABS: Glucose Point of Care 142 (65-105)
--- NOTE | 2020-06-28 09:40 | PM.IMPN ---
Progress Note: A&P Assessment and Plan (1) Abscess of female pelvis: Code(s): N73.9 - Female pelvic inflammatory disease, unspecified Status: Acute Assessment and Plan: Patient presents with abdominal pain, CT abdomen with multiple large abscesses up to 13.[address]-guided drain placement 06/22. She is now POD#2 s/p TAHBSO 06/[address] Mejia. Appreciate antibiotic recommendations by infectious disease. Today she continues on IV vancomycin (day 7), Flagyl (day 8), and Zosyn (day 8). Hold PT/OT again today given her extensive surgery on 06/26, although appears to be improving today. Reevaluate tomorrow. (2) Fibromyalgia: Code(s): M79.7 - Fibromyalgia Status: Chronic Assessment and Plan: Continue home regimen. (3) Cough: Code(s): R05 - Cough Status: Acute Assessment and Plan: Not noted again today. Chest XR shows left basilar atelectasis. Encouraged incentive spirometry. (4) Abnormal glucose: Code(s): R73.09 - Other abnormal glucose Status: Acute Assessment and Plan: Prediabetic with A1c 6.1. Continue to monitor with Accu-cheks and cover with SSI. (5) Hypokalemia: Code(s): E87.6 - Hypokalemia Status: Acute Assessment and Plan: K+ low at 2.9 this morning and replaced. Recheck this afternoon. Continue daily magnesium replacement and monitor BMP + Mg. (6) Severe sepsis: Code(s): A41.9 - Sepsis, unspecified organism; R65.20 - Severe sepsis without septic shock Status: Acute Assessment and Plan: Noted on admission but improving. Sinus tachycardia noted. She has been afebrile. Continue to monitor vital signs and urine output. Suspected source is pelvic abscesses, see above. Blood cultures 06/24 are pending with no growth to date. New wound cultures from the OR 06/26 are pending. Additional Plan Thank you for allowing me to participate in this patient's care. Please do not hesitate to call for any questions or concerns. We will follow with you while she is here. Subjective Date/time seen: 06/28/20 09:40 This is a Hospitalist Consult Progress Note Interval history: Patient is a 49 yo F admitted for pelvic abscesses now POD#2 s/p TAHBSO. Patient states she feels okay today. Pain is somewhat reasonable to a point she was able to get up into the chair this morning, but could only tolerate it for a couple of hours and requested to get back into bed. No other complaints at the moment. Denies f/c/s, cp/palpitations, sob/cough, n/v/d/c, abd pain, changes in BMs, dysuria, hematuria, cloudy urine, calf pain/swelling. Review of Systems Review of Systems: All systems reviewed & are unremarkable except as noted in HPI and below Exam Narrative: Exam Narrative: General: Female resting Semi-law's position in bed in no acute distress. HEENT: Normocephalic, EOMI, oral mucosa tacky. Cardiovascular: Rate and rhythm are regular. Respiratory: Lungs clear to auscultation anteriorly and laterally. Non-labored breathing. Abdomen: Soft, dressing to midline abdomen. bowel sounds hypoactive but present. Extremities: Peripheral pulses intact. No edema. Neuro: No focal neurological deficits. Speech is clear. Objective Data Vital Signs Vital Signs: Last Vital Signs Temp 96.8 F L 06/28/20 06:00 Pulse 103 H 06/28/20 06:00 Resp 20 06/28/20 06:00 BP 119/67 06/28/20 06:00 Pulse Ox 98 06/28/20 06:00 Intake/Output Intake/Output: Intake & Output 06/25/20 06/26/20 06/27/20 06/28/20 23:59 23:59 23:59 23:59 Intake Total 4206 2240 4350 1150 Output Total 1515 1330 1965 600 Balance 2691 910 2385 550 Meds/Results Medications: Active Medications Generic Nam
[2020-06-28] MEDS: MAGNESIUM OXIDE 400 MG TABLET PO (09:47)
[2020-06-28] MEDS: POTASSIUM CHLORIDE 20 MEQ TABLET 40 MEQ PO (09:47)
[2020-06-28] MEDS: BETAMETHASONE/CLOTRIMAZOLE CR 15 GM TUBE 1 APPLIC TOPICAL (09:48)
[2020-06-28] MEDS: LIDOCAINE HCL 1% PF INJ 5 ML VIAL INFILTRATE (10:15)
[2020-06-28 12:30] LABS: Glucose Point of Care 179 (65-105)
[2020-06-28 13:05] LABS: Basophils Absolute Auto 0.1 K/mm3 (0.0-0.1); Basophils Percent Auto 0.3 % (0.2-1.2); Eosinophils Absolute Auto 0.2 K/mm3 (0-0.3); Eosinophils Percent Auto 0.7 % (0-4.4); Hemoglobin 7.2 g/dL (12.0-15.0); Immature Granulocyte Absolute 0.95 K/mm3 (0.00-0.031); Immature Granulocyte Percent A 2.8 % (0-0.5); Lymphocytes Absolute Auto 2.36 K/mm3 (0.9-3.2); Lymphocytes Percent Auto 6.9 % (18.3-44.2); Mean Corpuscular HGB Conc 32.7 g/dl (32-36); Mean Corpuscular Hemoglobin 28.1 pg (26-34); Mean Corpuscular Volume 85.9 fl (80-100); Mean Platelet Volume 8.8 fl (7.4-10.4); Monocytes Percent Auto 5.7 % (2.6-8.5); Neutrophils Absolute Auto 28.5 K/mm3 (1.3-6.7); Neutrophils Percent Auto 83.6 % (45.5-73.1); Platelet Count Result 646 k/mm3 (150-375); Red Blood Count 2.56 M/mm3 (4.2-5.4); Red Cell Distribution Width 15.8 % (11.5-14.5); White Blood Count 34.1 K/mm3 (4.5-10.0)
[2020-06-28 13:16] LABS: Anion Gap 2 mmol/L (8-16); Blood Urea Nitrogen 5 mg/dL (7-17); Calcium 7.3 mg/dL (8.4-10.2); Carbon Dioxide 30 mmol/L (22-30); Chloride 103 mmol/L (98-107); Estimated CRCL calculation 67 ml/min; Estimated Glomerular Filt Rate > 60; Glucose 179 mg/dL (65-105); Potassium 3.3 mmol/L (3.4-5.0); Sodium 135 mmol/L (137-145)
[2020-06-28 13:17] LABS: Large Platelets Present
[2020-06-28 13:18] LABS: Platelet Estimate Increased (Adequate); Stomatocytes 1+ (NORMAL)
[2020-06-28 13:27] LABS: Glucose Point of Care 178 (65-105)
[2020-06-28] MEDS: CENTRAL LINE FLUSH 10 ML IV PUSH (13:37)
[2020-06-28] MEDS: ONDANSETRON INJ 4 MG/2 ML VIAL IV PUSH (13:52)
--- NOTE | 2020-06-28 15:04 | WPDINFPN2 ---
Progress Note: A&P Assessment and Plan (1) Abscess of female pelvis: Code(s): N73.9 - Female pelvic inflammatory disease, unspecified Status: Acute Assessment and Plan: IMP 1. PID and TOA. POD # 2. peptostreptococcus and prevotella isolated. No S aureus has been isolated to date. 2. Multifactorial leukocytosis, persists 3. Bipolar REC PipTazo # 8, continue. F/U on new cultures from OR. Subjective Date/time seen: 06/28/20 15:04 Interval history: appetite fair. + pain, under control. Nausea at times Exam Narrative: Exam Narrative: afebrile Const: General: no acute distress Eyes: General: appearance normal, both eyes and all related structures Resp: Effort & Inspection: normal respiratory effort Auscultation: clear to auscultation bilaterally Cardio: Rate: regular rate Rhythm: regular rhythm Heart sounds: no murmurs GI: Inspection: distended GI Palp: Yes Soft to palpation, No Tenderness to palpation present (GI) and No Guarding due to palpation present (GI) Auscultation: abnormal bowel sounds Other: morbid obesity Psych: Other: flat affect Objective Data Vital Signs Vital Signs: Vital Signs - 24 hr 06/27/20 16:00 06/27/20 18:00 06/27/20 20:00 Temperature 36.2 C L Pulse Rate 107 H 79 107 H Respiratory Rate 18 Blood Pressure 111/67 Pulse Oximetry 97 06/27/20 22:00 06/28/20 00:00 06/28/20 02:00 Temperature 36.4 C 37.1 C Pulse Rate 107 H 103 H 102 H Respiratory Rate 20 18 Blood Pressure 115/70 129/59 L Pulse Oximetry 97 96 06/28/20 04:00 06/28/20 06:00 06/28/20 08:00 Temperature 36.0 C L Pulse Rate 100 103 H 99 Respiratory Rate 20 Blood Pressure 119/67 Pulse Oximetry 98 06/28/20 12:00 06/28/20 14:00 Temperature 36.5 C 36.1 C L Pulse Rate 102 H 107 H Respiratory Rate 18 18 Blood Pressure 117/69 135/82 Pulse Oximetry 93 98 Intake/Output Intake/Output: Intake & Output 06/25/20 06/26/20 06/27/20 06/28/20 23:59 23:59 23:59 23:59 Intake Total 4206 2240 4350 1300 Output Total 1515 1330 1965 600 Balance 2691 703 5360 275 Meds/Results Medications: Active Medications Generic Name Dose Route Start Last Admin Trade Name Freq PRN Reason Stop Dose Admin Acetaminophen 1,000 mg 06/24/20 14:52 06/25/20 06:00 Acetaminophen 500 Mg Tablet PO 1,000 mg Q6H PRN Administration Fever Hydrocodone Bitart/Acetaminophen 1 tab 06/27/20 09:35 Hydrocodone/Acetaminophen (*Crx) 5-325 Mg Tablet PO Q4H PRN Pain Rated 4-6 Hydrocodone Bitart/Acetaminophen 1 tab 06/27/20 07:58 06/28/20 13:52 Hydrocodone/Acetaminophen (*Crx) 10-325 Mg Tablet PO 1 tab Q4H PRN Administration Pain Rated 7-10 Butalbital/Aspirin/Caffeine 1 cap 06/21/20 19:49 06/26/20 09:18 Acetamin/Butalbital/Caffeine 1 Capsule PO 1 cap Q4H PRN Administration Headache Clonazepam 2 mg 06/21/20 17:17 06/23/20 17:34 Clonazepam (*Crx) 0.5 Mg Tablet PO 2 mg TID PRN Administration Anxiety Clotrimazole 1 applic 06/26/20 21:23 06/28/20 09:48 Betamethasone/Clotrimazole Cr 15 Gm Tube TOPICAL 1 applic Q12HR LELIA Administration Dextrose 12.5 gm 06/22/20 06:44 Dextrose 50% 25 Gm/50 Ml Syringe IV PUSH PRN PRN Hypoglycemia Protocol Glucagon 1 mg 06/22/20 06:44 Glucagon For Inj 1 Mg Vial IM PRN PRN Hypoglycemia Protocol Glucose 15 gm 06/22/20 06:44 Glucose Oral Gel 15 Gm Of Glucse In 37.5 Gm Tube PO PRN PRN Hypoglycemia Protocol Guaifenesin/Dextromethorphan 10 ml 06/22/20 06:43 06/26/20 14:14 Guaifenesin/Dextromethorphan 10 Ml Udc PO 10 ml Q4H PRN Administration Cough Piperacillin/Tazobactam/Dextrose 3.375 gm in 50 mls @ 100 mls/hr 06/21/20 17:30 06/28/20 11:46 Zosyn 3.375 Gm/D5w 50ml Pm IVPB Infused Q6H LELIA Infusion Metronidazole 500 mg in 100 mls @ 100 mls/hr 06/21/20 18:30 06/28/20 13:27 Flagyl 500 Mg/Iso Soln 100 Ml IVPB Infu
[2020-06-28 18:53] LABS: Glucose Point of Care 137 (65-105)
[2020-06-28 20:51] LABS: Glucose Point of Care 127 (65-105)
[2020-06-29] VITALS (19 sets, daily range): BP systolic 118–153; BP diastolic 62–99; PULSE 63–107; RESP 12–22; TEMP 36.1–37.7; O2SAT 95–98
[2020-06-29] MEDS: BETAMETHASONE/CLOTRIMAZOLE CR 15 GM TUBE 1 APPLIC TOPICAL ×3 (00:01→21:05)
[2020-06-29] MEDS: CENTRAL LINE FLUSH 10 ML IV PUSH ×4 (05:20→21:05)
[2020-06-29 05:35] LABS: Basophils Absolute Auto 0.1 K/mm3 (0.0-0.1); Basophils Percent Auto 0.3 % (0.2-1.2); Eosinophils Absolute Auto 0.5 K/mm3 (0-0.3); Eosinophils Percent Auto 1.7 % (0-4.4); Immature Granulocyte Percent A 2.7 % (0-0.5); Lymphocytes Absolute Auto 2.75 K/mm3 (0.9-3.2); Lymphocytes Percent Auto 10.6 % (18.3-44.2); Mean Corpuscular HGB Conc 32.8 g/dl (32-36); Mean Corpuscular Hemoglobin 27.9 pg (26-34); Mean Platelet Volume 8.7 fl (7.4-10.4); Monocytes Absolute Auto 1.4 K/mm3 (0.1-0.6); Monocytes Percent Auto 5.4 % (2.6-8.5); Neutrophils Absolute Auto 20.5 K/mm3 (1.3-6.7); Neutrophils Percent Auto 79.3 % (45.5-73.1); Platelet Count Result 646 k/mm3 (150-375); Red Blood Count 2.33 M/mm3 (4.2-5.4); Red Cell Distribution Width 16.2 % (11.5-14.5); White Blood Count 25.9 K/mm3 (4.5-10.0)
[2020-06-29 05:57] LABS: Anion Gap -1 mmol/L (8-16); Blood Urea Nitrogen 7 mg/dL (7-17); Calcium 7.4 mg/dL (8.4-10.2); Carbon Dioxide 34 mmol/L (22-30); Chloride 105 mmol/L (98-107); Estimated CRCL calculation 60 ml/min; Estimated Glomerular Filt Rate 59; Glucose 119 mg/dL (65-105); Magnesium 2.1 mg/dL (1.6-2.3); Potassium 3.3 mmol/L (3.4-5.0); Sodium 138 mmol/L (137-145)
[2020-06-29 06:32] LABS: Hematocrit 19.8 % (37.0-47.0); Hemoglobin 6.5 g/dL (12.0-15.0)
[2020-06-29 06:33] LABS: Hypochromasia 2+ (NORMAL); Platelet Estimate Adequate (Adequate); Polychromasia 1+ (NORMAL)
--- NOTE | 2020-06-29 07:32 | PM.GYNPNOP ---
INTAKE SPECIALIST - A/P Assessment and plan (1) TOA (tubo-ovarian abscess): Code(s): N70.93 - Salpingitis and oophoritis, unspecified Status: Acute Assessment and Plan: WBC down to 25 this am, remains afebrile, drain with 30-40 cc clear, bloody fluid not purulent continue antibiotics, operative cultures negative so far, pathology benign H/H continue to trend down since admit and am uncertain of cause- discussed with patient and will give 2 u PRBC today and recheck labs in am Postoperative Procedures: Procedures Operation Date: 06/26/20 17:00 Actual Procedures Side Surgeon p Exploratory Laparotomy, Total Abdominal Hysterectomy with Bilateral Salpingo-Oophorectomy Naya Mejia MD Postoperative day: 3 Time Spent With Patient Time: Total time spent is greater than 50% in coordination of care (as documented) at patient's floor/unit and/or counseling patient: Time with patient: less than 15 minutes INTAKE SPECIALIST- PN:Subj Post-Op Subjective Date/time seen: 06/29/20 07:32 Interval history: Patient continues to feel better. She states she was up to chair and moving in room much of day yesterday. No cough. No nausea this am. Tolerating her diet. Increased passing gas. Exam Narrative: Exam Narrative: abdomen: soft, less distended especially upper abdomen, inc c/d/i, drain intact and draining minimal bloody fluid, pain consistent with post-op pain Perineum: yeast infection improving, no bleeding INTAKE SPECIALIST - PN: Obj Data Vital Signs Vital Signs: Vital Signs - 24 hr 06/28/20 08:00 06/28/20 12:00 06/28/20 14:00 Temperature 97.7 F 97.0 F L Pulse Rate 99 102 H 107 H Respiratory Rate 18 18 Blood Pressure 117/69 135/82 Pulse Oximetry 93 98 06/28/20 16:00 06/28/20 18:00 06/28/20 20:00 Temperature 98.4 F 97.1 F L Pulse Rate 95 95 107 H Respiratory Rate 19 20 Blood Pressure 118/72 136/78 Pulse Oximetry 98 98 06/29/20 00:00 06/29/20 04:00 Temperature 99.9 F H 99.6 F Pulse Rate 100 63 Respiratory Rate 18 20 Blood Pressure 143/75 H 118/73 Pulse Oximetry 97 95 Intake/Output Intake/Output: Intake & Output 06/26/20 06/27/20 06/28/20 06/29/20 23:59 23:59 23:59 23:59 Intake Total 2240 4350 2050 410 Output Total 1330 1965 1000 450 Balance 910 2385 1050 -40 Meds/Results Medications: Active Medications Generic Name Dose Route Start Last Admin Trade Name Freq PRN Reason Stop Dose Admin Acetaminophen 1,000 mg 06/24/20 14:52 06/25/20 06:00 Acetaminophen 500 Mg Tablet PO 1,000 mg Q6H PRN Administration Fever Hydrocodone Bitart/Acetaminophen 1 tab 06/27/20 09:35 Hydrocodone/Acetaminophen (*Crx) 5-325 Mg Tablet PO Q4H PRN Pain Rated 4-6 Hydrocodone Bitart/Acetaminophen 1 tab 06/27/20 07:58 06/28/20 20:22 Hydrocodone/Acetaminophen (*Crx) 10-325 Mg Tablet PO 1 tab Q4H PRN Administration Pain Rated 7-10 Butalbital/Aspirin/Caffeine 1 cap 06/21/20 19:49 06/26/20 09:18 Acetamin/Butalbital/Caffeine 1 Capsule PO 1 cap Q4H PRN Administration Headache Clonazepam 2 mg 06/21/20 17:17 06/23/20 17:34 Clonazepam (*Crx) 0.5 Mg Tablet PO 2 mg TID PRN Administration Anxiety Clotrimazole 1 applic 06/26/20 21:23 06/29/20 00:01 Betamethasone/Clotrimazole Cr 15 Gm Tube TOPICAL 1 applic Q12HR LELIA Administration Dextrose 12.5 gm 06/22/20 06:44 Dextrose 50% 25 Gm/50 Ml Syringe IV PUSH PRN PRN Hypoglycemia Protocol Glucagon 1 mg 06/22/20 06:44 Glucagon For Inj 1 Mg Vial IM PRN PRN Hypoglycemia Protocol Glucose 15 gm 06/22/20 06:44 Glucose Oral Gel 15 Gm Of Glucse In 37.5 Gm Tube PO PRN PRN Hypoglycemia Protocol Guaifenesin/Dextromethorphan 10 ml 06/22/20 06:43 06/26/20 14:14 Guaifenesin/Dextromethorphan 10 Ml Udc PO 10 ml Q4H PRN Administration Cough Piperacillin/Tazobactam/Dextrose 3.375 gm in 50 mls @ 100 mls/hr 06/21/20 17:30 06/29/20 05:05 Zosyn 3.37
[2020-06-29 07:54] LABS: Glucose Point of Care 119 (65-105)
[2020-06-29] MEDS: POTASSIUM CHLORIDE 20 MEQ TABLET 60 MEQ PO (08:05)
[2020-06-29] MEDS: SODIUM CHLORIDE 0.9% IV 250 ML 30 ML IV CONT (08:07)
[2020-06-29] MEDS: MAGNESIUM OXIDE 400 MG TABLET PO (08:07)
[2020-06-29] MEDS: HYDROcodone/acetaminophen (*CRX) 5-325 MG TABLET 1 TAB PO (11:00)
[2020-06-29 11:50] LABS: Glucose Point of Care 138 (65-105)
--- NOTE | 2020-06-29 13:12 | PC.NURSE ---
Pt okayed me to talk to Arabella Linn, pts significant other, on the phone and update him.
--- NOTE | 2020-06-29 13:15 | PM.IMPN ---
Progress Note: A&P Assessment and Plan (1) Abscess of female pelvis: Code(s): N73.9 - Female pelvic inflammatory disease, unspecified Status: Acute Assessment and Plan: Patient presented with abdominal pain, CT abdomen with multiple large abscesses up to 13.[address]-guided drain placement 06/22. She is now POD#3 s/p TAHBSO 06/[address] Mejia. Appreciate antibiotic recommendations by infectious disease. Today she continues on IV Zosyn (day 9). Resume PT/OT. (2) Fibromyalgia: Code(s): M79.7 - Fibromyalgia Status: Chronic Assessment and Plan: Continue home regimen. (3) Abnormal glucose: Code(s): R73.09 - Other abnormal glucose Status: Acute Assessment and Plan: Prediabetic with A1c 6.1. Continue to monitor with Accu-cheks and cover with SSI. (4) Hypokalemia: Code(s): E87.6 - Hypokalemia Status: Acute Assessment and Plan: K+ low at 3.3 this morning and replaced. Continue daily magnesium replacement and monitor BMP + Mg. (5) Severe sepsis: Code(s): A41.9 - Sepsis, unspecified organism; R65.20 - Severe sepsis without septic shock Status: Acute Assessment and Plan: Evidenced by fever, tachycardia, leukocytosis on arrival; now improving. Suspected source is pelvic abscesses, see above. Blood cultures 06/24 are pending with no growth to date. Original wound cultures from drain placement isolated Peptostreptococcus and Prevotella; New wound cultures from the OR 06/26 are still pending this afternoon. Additional Plan Thank you for allowing me to participate in this patient's care. Please do not hesitate to call for any questions or concerns. We will follow with you while she is here. Subjective Date/time seen: 06/29/20 1300 Interval history: Ms. Blake is a 49yo F admitted for pelvic abscesses now POD#3 s/p TAHBSO. She rates her pain 6 out of 10 severity at time of my assessment. Her pain is worse with movement. She is tolerating some oral intake however reports she does not have much of an appetite. She becomes nauseous when she starts to eat, no vomiting. She denies any chest pain, shortness of breath or calf tenderness. Review of Systems Review of Systems: All systems reviewed & are unremarkable except as noted in HPI and below Exam Narrative: Exam Narrative: General: Female resting sitting up in bedside chair in no acute distress. HEENT: Normocephalic, EOMI, oral mucosa moist. Cardiovascular: Rate and rhythm are regular. Respiratory: Lungs clear to auscultation anteriorly and laterally. Non-labored breathing. Abdomen: Soft, stapled incision to midline abdomen is clean/dry/intact. Bowel sounds hypoactive but present. Extremities: Peripheral pulses intact. Mild periankle edema GRAEME; GRAEME calves are nontender to palpation. GRAEME hands mildly edematous. Neuro: No focal neurological deficits. Speech is clear. Psych: Mood and affect are flat. Cooperative. Objective Data Vital Signs Vital Signs: Last Vital Signs Temp 97.1 F L 06/29/20 14:15 Pulse 96 06/29/20 14:15 Resp 16 06/29/20 14:15 BP 137/72 06/29/20 14:15 Pulse Ox 97 06/29/20 14:15 Intake/Output Intake/Output: Intake & Output 06/26/20 06/27/20 06/28/20 06/29/20 23:59 23:59 23:59 23:59 Intake Total 2240 4350 2050 855 Output Total 1330 1965 1000 450 Balance 910 2385 1050 405 Meds/Results Medications: Active Medications Generic Name Dose Route Start Last Admin Trade Name Freq PRN Reason Stop Dose Admin Acetaminophen 1,000 mg 06/24/20 14:52 06/25/20 06:00 Acetaminophen 500 Mg Tablet PO 1,000 mg Q6H PRN Administration Fever Hydrocodone Bitart/Acetaminophen 1 tab 06/27/20 09:35 06/29/20 11:00 Hydrocodone/Acet
[2020-06-29 16:16] LABS: Glucose Point of Care 125 (65-105)
[2020-06-29] MEDS: HYDROcodone/acetaminophen (*CRX) 10-325 MG TABLET 1 TAB PO (21:04)
[2020-06-29 21:11] LABS: Glucose Point of Care 118 (65-105)
[2020-06-30] VITALS (12 sets, daily range): BP systolic 125–145; BP diastolic 64–87; PULSE 83–108; RESP 16–22; TEMP 36.1–36.7; O2SAT 94–97
[2020-06-30] MEDS: CENTRAL LINE FLUSH 10 ML IV PUSH ×3 (06:02→19:58)
[2020-06-30 06:13] LABS: Basophils Absolute Auto 0.1 K/mm3 (0.0-0.1); Basophils Percent Auto 0.3 % (0.2-1.2); Eosinophils Absolute Auto 0.3 K/mm3 (0-0.3); Eosinophils Percent Auto 1.5 % (0-4.4); Hematocrit 28.3 % (37.0-47.0); Hemoglobin 9.3 g/dL (12.0-15.0); Immature Granulocyte Percent A 1.5 % (0-0.5); Lymphocytes Absolute Auto 2.01 K/mm3 (0.9-3.2); Lymphocytes Percent Auto 10.3 % (18.3-44.2); Mean Corpuscular HGB Conc 32.9 g/dl (32-36); Mean Corpuscular Hemoglobin 29.1 pg (26-34); Mean Corpuscular Volume 88.4 fl (80-100); Mean Platelet Volume 8.4 fl (7.4-10.4); Monocytes Percent Auto 5.1 % (2.6-8.5); Neutrophils Absolute Auto 15.9 K/mm3 (1.3-6.7); Neutrophils Percent Auto 81.3 % (45.5-73.1); Platelet Count Result 602 k/mm3 (150-375); Red Cell Distribution Width 15.7 % (11.5-14.5); White Blood Count 19.5 K/mm3 (4.5-10.0)
[2020-06-30 06:23] LABS: Anion Gap 4 mmol/L (8-16); Blood Urea Nitrogen 8 mg/dL (7-17); Calcium 7.5 mg/dL (8.4-10.2); Carbon Dioxide 30 mmol/L (22-30); Chloride 103 mmol/L (98-107); Estimated CRCL calculation 67 ml/min; Estimated Glomerular Filt Rate > 60; Glucose 116 mg/dL (65-105); Magnesium 2.1 mg/dL (1.6-2.3); Potassium 3.3 mmol/L (3.4-5.0); Sodium 137 mmol/L (137-145)
[2020-06-30 06:43] LABS: Iron 35 ug/dL (37-170)
[2020-06-30 06:53] LABS: Percent Iron Saturation 16 % (20-50)
[2020-06-30 07:29] LABS: Folic Acid 5.9 ng/mL (2.76->20)
[2020-06-30 08:08] LABS: Glucose Point of Care 115 (65-105)
[2020-06-30] MEDS: BETAMETHASONE/CLOTRIMAZOLE CR 15 GM TUBE 1 APPLIC TOPICAL ×2 (11:41→19:59)
[2020-06-30 12:02] LABS: Glucose Point of Care 118 (65-105)
--- NOTE | 2020-06-30 12:06 | PCNFU ---
Nutrition Follow-Up Complete: Inadequate oral intake related to decreased appetite as evidenced by meal records. Goal: Patient to consume 50% of meals/supplements or greater. limited progress. We will continue current goal. Pt current nutrition is CC. Nutrition recommendation: Agree Last recorded weight is 90.5 kg. Bowel Motility:+BM 06/30 Labs Reviewed: Glu 116,K 3.3,Hct 28.3,Hgb 9.3 Meds Noted:Zocyn,Hudson,Mag Ox,Novolog,Zofran Additional Notes: Patient seen today for nutrition follow up. Patient states to no diet concerns. Poor po intake reported-refusing meals-10%. She has orders for Glucerna shakes TID. She will try the vanilla flavor for lunch. PO intake is encouraged. Monitoring: Follow up in 3 days.
[2020-06-30] MEDS: ONDANSETRON INJ 4 MG/2 ML VIAL IV PUSH ×2 (12:55→18:13)
--- NOTE | 2020-06-30 13:54 | PM.IMPN ---
Progress Note: A&P Assessment and Plan (1) Abscess of female pelvis: Code(s): N73.9 - Female pelvic inflammatory disease, unspecified Status: Acute Assessment and Plan: Patient presented with abdominal pain, CT abdomen with multiple large abscesses up to 13.[address]-guided drain placement 06/22. She is now POD#4 s/p TAHBSO 06/[address] Mejia. Appreciate antibiotic recommendations by infectious disease. Today she continues on IV Zosyn (day 10). PICC right basilic. Continue PT/OT. (2) Fibromyalgia: Code(s): M79.7 - Fibromyalgia Status: Chronic Assessment and Plan: Continue home regimen. (3) Abnormal glucose: Code(s): R73.09 - Other abnormal glucose Status: Acute Assessment and Plan: Prediabetic with A1c 6.1. Continue to monitor with Accu-cheks and cover with SSI. (4) Hypokalemia: Code(s): E87.6 - Hypokalemia Status: Acute Assessment and Plan: K+ low at 3.3 this morning; ordered for oral KCl replacement however patient is adamantly refusing. Continue daily magnesium replacement and monitor BMP + Mg. (5) Severe sepsis: Code(s): A41.9 - Sepsis, unspecified organism; R65.20 - Severe sepsis without septic shock Status: Acute Assessment and Plan: Evidenced by fever, tachycardia, leukocytosis on arrival; now improving. Suspected source is pelvic abscesses, see above. Blood cultures 06/24 are negative. Original wound cultures from drain placement isolated Peptostreptococcus and Prevotella; New wound cultures from the OR 06/26 are still pending this afternoon. Additional Plan Thank you for allowing me to participate in this patient's care. Please do not hesitate to call for any questions or concerns. We will follow with you while she is here. Patient wants to go home. White count is trending down now however it is my clinical opinion that the patient would benefit from continued inpatient management through at least tonight for IV antibiotics and pain control, although disposition remains per the primary service. Subjective Date/time seen: 06/30/20 13:00 Interval history: Ms. Blake is a 49yo F admitted for pelvic abscesses now POD#4 s/p TAHBSO. She is having a wave of nausea currently and gags a bit during my exam. No vomiting. She is tolerating minimal oral intake because she does not have much of an appetite and she becomes nauseous when she starts to eat. She denies any chest pain, shortness of breath or calf tenderness. She wants to go home. I held a detailed discussion with the patient regarding her care and the importance of antibiotics and pain control. She discussed the possibility of leaving against medical advice. She seems agreeable to staying overnight but wants to leave tomorrow. Review of Systems Review of Systems: All systems reviewed & are unremarkable except as noted in HPI and below Exam Narrative: Exam Narrative: General: Female resting sitting up in bed in no acute distress. HEENT: Normocephalic, EOMI, oral mucosa moist. Cardiovascular: Rate and rhythm are regular. Respiratory: Lungs clear to auscultation in all huynh. Non-labored breathing. Abdomen: Soft, stapled incision to midline abdomen is clean/dry/intact. Bowel sounds hypoactive but present. RLQ adbominal drain with serosanguineous. Extremities: Peripheral pulses intact. Mild periankle edema GRAEME; GRAEME calves are nontender to palpation. Neuro: No focal neurological deficits. Speech is clear. Psych: Mood and affect are flat. Frustrated. Objective Data Vital Signs Vital Signs: Last Vital Signs Temp 97.0 F L 06/30/20 10:00 Pulse 95 06/30/20 10:00 Resp 16 06/30/20 10:00 BP 137/75 06/30/20 10:00 Pulse Ox 94 06/30/20 10:00
--- NOTE | 2020-06-30 15:45 | PM.GYNPNOP ---
SATELLITE DISH REPAIRER - A/P Postoperative Procedures: Procedures Operation Date: 06/26/20 17:00 Actual Procedures Side Surgeon p Exploratory Laparotomy, Total Abdominal Hysterectomy with Bilateral Salpingo-Oophorectomy Naya Mejia MD Postoperative day: 4 Postoperative status: doing well Postoperative plan: routine post-op care and other (exam improved; drain removed; WBC down aim for dc this weekend if possible) Time Spent With Patient Time: Total time spent is greater than 50% in coordination of care (as documented) at patient's floor/unit and/or counseling patient: Time with patient: 15 - 25 minutes SATELLITE DISH REPAIRER- PN:Subj Post-Op Subjective Date/time seen: 06/30/20 15:45 Subjective: patient desires discharge, pain is well controlled, patient is tolerating oral intake (but refuses much of her meals about 50% tray eaten but no lunch) and patient reports nausea (on and off) Exam GI: Inspection: normal to inspection, non-distended, incision (clean, dry, intact) and other (drain removed and dressed) GI Palp: Yes abdominal tenderness (appropriate post op pain), Yes Soft to palpation and No Rebound tenderness present SATELLITE DISH REPAIRER - PN: Obj Data Vital Signs Vital Signs: Vital Signs - 24 hr 06/29/20 16:00 06/29/20 18:00 06/29/20 20:00 Temperature 97.3 F L Pulse Rate 99 99 98 Respiratory Rate 18 22 H Blood Pressure 141/78 H Pulse Oximetry 98 96 06/29/20 22:00 06/30/20 00:00 06/30/20 02:00 Temperature 97.4 F L 98.1 F Pulse Rate 98 89 94 Respiratory Rate 22 H 20 Blood Pressure 131/76 125/76 Pulse Oximetry 96 95 06/30/20 04:00 06/30/20 06:00 06/30/20 08:00 Temperature 97.9 F Pulse Rate 83 98 85 Respiratory Rate 22 H Blood Pressure 130/64 Pulse Oximetry 96 06/30/20 10:00 06/30/20 12:00 06/30/20 14:00 Temperature 97.0 F L 97.0 F L Pulse Rate 95 94 98 Respiratory Rate 16 16 Blood Pressure 137/75 145/87 H Pulse Oximetry 94 97 Intake/Output Intake/Output: Intake & Output 10/20/20 10/21/20 10/22/20 10/23/20 23:59 23:59 23:59 23:59 Intake Total 4350 2050 1725 1750 Output Total 1965 1000 600 25 Balance 2385 1050 1125 1725 Meds/Results Medications: Active Medications Generic Name Dose Route Start Last Admin Trade Name Freq PRN Reason Stop Dose Admin Acetaminophen 1,000 mg 06/24/20 14:52 06/25/20 06:00 Acetaminophen 500 Mg Tablet PO 1,000 mg Q6H PRN Administration Fever Hydrocodone Bitart/Acetaminophen 1 tab 06/27/20 09:35 06/29/20 11:00 Hydrocodone/Acetaminophen (*Crx) 5-325 Mg Tablet PO 1 tab Q4H PRN Administration Pain Rated 4-6 Hydrocodone Bitart/Acetaminophen 1 tab 06/27/20 07:58 06/29/20 21:04 Hydrocodone/Acetaminophen (*Crx) 10-325 Mg Tablet PO 1 tab Q4H PRN Administration Pain Rated 7-10 Butalbital/Aspirin/Caffeine 1 cap 06/21/20 19:49 06/26/20 09:18 Acetamin/Butalbital/Caffeine 1 Capsule PO 1 cap Q4H PRN Administration Headache Clonazepam 2 mg 06/21/20 17:17 06/23/20 17:34 Clonazepam (*Crx) 0.5 Mg Tablet PO 2 mg TID PRN Administration Anxiety Clotrimazole 1 applic 06/26/20 21:23 06/30/20 11:41 Betamethasone/Clotrimazole Cr 15 Gm Tube TOPICAL 1 applic Q12HR LELIA Administration Dextrose 12.5 gm 06/22/20 06:44 Dextrose 50% 25 Gm/50 Ml Syringe IV PUSH PRN PRN Hypoglycemia Protocol Glucagon 1 mg 06/22/20 06:44 Glucagon For Inj 1 Mg Vial IM PRN PRN Hypoglycemia Protocol Glucose 15 gm 06/22/20 06:44 Glucose Oral Gel 15 Gm Of Glucse In 37.5 Gm Tube PO PRN PRN Hypoglycemia Protocol Guaifenesin/Dextromethorphan 10 ml 06/22/20 06:43 06/26/20 14:14 Guaifenesin/Dextromethorphan 10 Ml Udc PO 10 ml Q4H PRN Administration Cough Piperacillin/Tazobactam/Dextrose 3.375 gm in 50 mls @ 100 mls/hr 06/21/20 17:30 06/30/20 13:00 Zosyn 3.375 Gm/D5w 50ml Pm IVPB Infused Q6H LELIA Infusion Dextrose 1,000 mls @ 100 mls/hr 06/22/20
--- NOTE | 2020-06-30 16:01 | WPDINFPN2 ---
Progress Note: A&P Assessment and Plan (1) Abscess of female pelvis: Code(s): N73.9 - Female pelvic inflammatory disease, unspecified Status: Acute Assessment and Plan: IMP 1. PID and TOA. POD # 4. peptostreptococcus and prevotella isolated originally but OR specimens final NG. No S aureus has been isolated to date. 2. Multifactorial leukocytosis, slowly declining in recent days 3. Bipolar REC PipTazo # 10, continue. If she stays, would continue IV therapy until wbc under 12 or so, then Augmentin 500 tid through 07/04. If she leaves prematurely, then can can place on the same Augmentin with same stop date. Discussed. Subjective Date/time seen: 06/30/20 16:01 Interval history: wants to go home, I encouraged her to stay for ongoing IV antibiotics along with her other therapy, but conceded that we cannot keep her here against her will. Pain under control Exam Narrative: Exam Narrative: afebrile Const: General: no acute distress Eyes: General: appearance normal, both eyes and all related structures Resp: Effort & Inspection: normal respiratory effort Auscultation: clear to auscultation bilaterally Cardio: Rate: regular rate Rhythm: regular rhythm Heart sounds: no gallops and no murmurs GI: Inspection: non-distended GI Palp: Yes Soft to palpation, No Tenderness to palpation present (GI) and No Guarding due to palpation present (GI) Auscultation: normal bowel sounds Skin: General skin exam: no rashes or lesions noted Psych: Other: flat affect as before Objective Data Vital Signs Vital Signs: Vital Signs - 24 hr 06/29/20 18:00 06/29/20 20:00 06/29/20 22:00 Temperature 36.3 C L 36.3 C L Pulse Rate 99 98 98 Respiratory Rate 18 22 H 22 H Blood Pressure 141/78 H 131/76 Pulse Oximetry 98 96 96 06/30/20 00:00 06/30/20 02:00 06/30/20 04:00 Temperature 36.7 C Pulse Rate 89 94 83 Respiratory Rate 20 Blood Pressure 125/76 Pulse Oximetry 95 06/30/20 06:00 06/30/20 08:00 06/30/20 10:00 Temperature 36.6 C 36.1 C L Pulse Rate 98 85 95 Respiratory Rate 22 H 16 Blood Pressure 130/64 137/75 Pulse Oximetry 96 94 06/30/20 12:00 06/30/20 14:00 Temperature 36.1 C L Pulse Rate 94 98 Respiratory Rate 16 Blood Pressure 145/87 H Pulse Oximetry 97 Intake/Output Intake/Output: Intake & Output 06/27/20 06/28/20 06/29/20 06/30/20 23:59 23:59 23:59 23:59 Intake Total 4350 2050 1725 1750 Output Total 1965 1000 600 25 Balance 2385 1050 1125 1725 Meds/Results Medications: Active Medications Generic Name Dose Route Start Last Admin Trade Name Freq PRN Reason Stop Dose Admin Acetaminophen 1,000 mg 06/24/20 14:52 06/25/20 06:00 Acetaminophen 500 Mg Tablet PO 1,000 mg Q6H PRN Administration Fever Hydrocodone Bitart/Acetaminophen 1 tab 06/27/20 09:35 06/29/20 11:00 Hydrocodone/Acetaminophen (*Crx) 5-325 Mg Tablet PO 1 tab Q4H PRN Administration Pain Rated 4-6 Hydrocodone Bitart/Acetaminophen 1 tab 06/27/20 07:58 06/29/20 21:04 Hydrocodone/Acetaminophen (*Crx) 10-325 Mg Tablet PO 1 tab Q4H PRN Administration Pain Rated 7-10 Butalbital/Aspirin/Caffeine 1 cap 06/21/20 19:49 06/26/20 09:18 Acetamin/Butalbital/Caffeine 1 Capsule PO 1 cap Q4H PRN Administration Headache Clonazepam 2 mg 06/21/20 17:17 06/23/20 17:34 Clonazepam (*Crx) 0.5 Mg Tablet PO 2 mg TID PRN Administration Anxiety Clotrimazole 1 applic 06/26/20 21:23 06/30/20 11:41 Betamethasone/Clotrimazole Cr 15 Gm Tube TOPICAL 1 applic Q12HR LELIA Administration Dextrose 12.5 gm 06/22/20 06:44 Dextrose 50% 25 Gm/50 Ml Syringe IV PUSH PRN PRN Hypoglycemia Protocol Glucagon 1 mg 06/22/20 06:44 Glucagon For Inj 1 Mg Vial IM PRN PRN Hypoglycemia Protocol Glucose 15 gm 06/22/20 06:44 Glucose Oral Gel 15 Gm Of Glucse In 37.5 Gm Tube PO PRN PRN Hypoglycemia Protocol Yuan
[2020-06-30 17:47] LABS: Glucose Point of Care 109 (65-105)
[2020-06-30] MEDS: HYDROcodone/acetaminophen (*CRX) 5-325 MG TABLET 1 TAB PO (19:57)
[2020-06-30 22:03] LABS: Glucose Point of Care 143 (65-105)
[2020-07-01] VITALS (7 sets, daily range): BP systolic 127–143; BP diastolic 68–87; PULSE 80–95; RESP 18–22; TEMP 36.1–36.2; O2SAT 97–98
[2020-07-01] MEDS: CENTRAL LINE FLUSH 10 ML IV PUSH (05:31)
[2020-07-01 06:01] LABS: Basophils Absolute Auto 0.1 K/mm3 (0.0-0.1); Basophils Percent Auto 0.3 % (0.2-1.2); Eosinophils Absolute Auto 0.2 K/mm3 (0-0.3); Eosinophils Percent Auto 1.4 % (0-4.4); Hematocrit 29.1 % (37.0-47.0); Hemoglobin 9.5 g/dL (12.0-15.0); Immature Granulocyte Absolute 0.19 K/mm3 (0.00-0.031); Immature Granulocyte Percent A 1.1 % (0-0.5); Lymphocytes Absolute Auto 1.81 K/mm3 (0.9-3.2); Lymphocytes Percent Auto 10.8 % (18.3-44.2); Mean Corpuscular HGB Conc 32.6 g/dl (32-36); Mean Corpuscular Hemoglobin 29.2 pg (26-34); Mean Corpuscular Volume 89.5 fl (80-100); Mean Platelet Volume 8.2 fl (7.4-10.4); Monocytes Percent Auto 5.7 % (2.6-8.5); Neutrophils Absolute Auto 13.6 K/mm3 (1.3-6.7); Neutrophils Percent Auto 80.7 % (45.5-73.1); Platelet Count Result 640 k/mm3 (150-375); Red Blood Count 3.25 M/mm3 (4.2-5.4); White Blood Count 16.8 K/mm3 (4.5-10.0)
[2020-07-01 06:29] LABS: Anion Gap 4 mmol/L (8-16); Blood Urea Nitrogen 8 mg/dL (7-17); Calcium 7.7 mg/dL (8.4-10.2); Carbon Dioxide 32 mmol/L (22-30); Chloride 101 mmol/L (98-107); Estimated CRCL calculation 67 ml/min; Estimated Glomerular Filt Rate > 60; Glucose 123 mg/dL (65-105); Magnesium 2.2 mg/dL (1.6-2.3); Potassium 3.2 mmol/L (3.4-5.0); Sodium 137 mmol/L (137-145)
[2020-07-01 08:14] LABS: Glucose Point of Care 121 (65-105)
[2020-07-01] MEDS: ACETAMINOPHEN 500 MG TABLET 1000 MG PO (08:23)
[2020-07-01] MEDS: ONDANSETRON INJ 4 MG/2 ML VIAL IV PUSH (08:23)
[2020-07-01] MEDS: BETAMETHASONE/CLOTRIMAZOLE CR 15 GM TUBE 1 APPLIC TOPICAL (08:25)
--- NOTE | 2020-07-01 10:37 | PCOTNOTE ---
Practitioner attempted to have patient participate in therapy session this date, but patient declined to partake in therapy session due to patient d/c.
--- NOTE | 2020-07-01 10:50 | PM.GYNPNOP ---
ROLL BUCKER - A/P Assessment and plan (1) TOA (tubo-ovarian abscess): Code(s): N70.93 - Salpingitis and oophoritis, unspecified Status: Acute Assessment and Plan: WBC count continues to decrease. Wanted to be under 12 per ID but patient strongly requesting to dc home. Will dc on augmentin 500 mg BID to complete 14 days Postoperative Procedures: Procedures Operation Date: 06/26/20 17:00 Actual Procedures Side Surgeon p Exploratory Laparotomy, Total Abdominal Hysterectomy with Bilateral Salpingo-Oophorectomy Naya Mejia MD Postoperative day: 5 Postoperative status: doing well (improving daily) Postoperative plan: routine post-op care and discharge (patient strongly wants discharge due to social situation; agrees to finish antibiotics at home and increase meals) Time Spent With Patient Time: Total time spent is greater than 50% in coordination of care (as documented) at patient's floor/unit and/or counseling patient: Time with patient: less than 15 minutes ROLL BUCKER- PN:Subj Post-Op Subjective Date/time seen: 07/01/20 10:50 Interval history: wants to go home, I encouraged her to stay for ongoing IV antibiotics along with her other therapy, but conceded that we cannot keep her here against her will. Pain under control Subjective: patient reports feeling better, patient desires discharge (significant social issues at home with son and his father), pain is well controlled and other (ate 50-75 % trays last 2 meals; ambulating on own) Exam Const: General: cooperative and alert GI: Inspection: non-distended and incision (clean, dry, intact) GI Palp: Yes abdominal tenderness (consistenet with post op pain ) ROLL BUCKER - PN: Obj Data Vital Signs Vital Signs: Vital Signs - 24 hr 06/30/20 12:00 06/30/20 14:00 06/30/20 16:00 Temperature 97.0 F L Pulse Rate 94 98 97 Respiratory Rate 16 Blood Pressure 145/87 H Pulse Oximetry 97 06/30/20 18:00 06/30/20 20:00 06/30/20 22:00 Temperature 97.4 F L 97.1 F L Pulse Rate 108 H 95 94 Respiratory Rate 16 20 Blood Pressure 141/80 H 138/76 Pulse Oximetry 97 95 07/01/20 00:00 07/01/20 02:00 07/01/20 04:00 Temperature 96.9 F L Pulse Rate 90 92 81 Respiratory Rate 22 H Blood Pressure 127/68 Pulse Oximetry 97 07/01/20 06:00 07/01/20 09:30 Temperature 97.1 F L 96.9 F L Pulse Rate 94 95 Respiratory Rate 22 H 18 Blood Pressure 143/87 H 129/87 Pulse Oximetry 98 97 Intake/Output Intake/Output: Intake & Output 06/28/20 06/29/20 06/30/20 07/01/20 23:59 23:59 23:59 23:59 Intake Total 2050 1725 2950 350 Output Total 1000 600 25 Balance 1050 1125 2925 350 Meds/Results Medications: Active Medications Generic Name Dose Route Start Last Admin Trade Name Freq PRN Reason Stop Dose Admin Acetaminophen 1,000 mg 06/24/20 14:52 07/01/20 08:23 Acetaminophen 500 Mg Tablet PO 1,000 mg Q6H PRN Administration Fever Hydrocodone Bitart/Acetaminophen 1 tab 06/27/20 09:35 06/30/20 19:57 Hydrocodone/Acetaminophen (*Crx) 5-325 Mg Tablet PO 1 tab Q4H PRN Administration Pain Rated 4-6 Hydrocodone Bitart/Acetaminophen 1 tab 06/27/20 07:58 06/29/20 21:04 Hydrocodone/Acetaminophen (*Crx) 10-325 Mg Tablet PO 1 tab Q4H PRN Administration Pain Rated 7-10 Butalbital/Aspirin/Caffeine 1 cap 06/21/20 19:49 06/26/20 09:18 Acetamin/Butalbital/Caffeine 1 Capsule PO 1 cap Q4H PRN Administration Headache Clonazepam 2 mg 06/21/20 17:17 06/23/20 17:34 Clonazepam (*Crx) 0.5 Mg Tablet PO 2 mg TID PRN Administration Anxiety Clotrimazole 1 applic 06/26/20 21:23 07/01/20 08:25 Betamethasone/Clotrimazole Cr 15 Gm Tube TOPICAL 1 applic Q12HR LELIA Administration Dextrose 12.5 gm 06/22/20 06:44 Dextrose 50% 25 Gm/50 Ml Syringe IV PUSH PRN PRN Hypoglycemia Protocol Glucagon 1 mg 06/22/20 06:44 Glucagon For Inj 1 Mg Vial IM PRN PRN Hypoglycemia Graeme
--- NOTE | 2020-07-01 11:08 | PM.DS ---
DS: Admitting Diagnosis Admitting Diagnosis Admitting Diagnosis: pelvic abscesses DS: Discharge Diagnosis Discharge Diagnosis (1) TOA (tubo-ovarian abscess): Code(s): N70.93 - Salpingitis and oophoritis, unspecified Status: Acute (2) Severe sepsis: Code(s): A41.9 - Sepsis, unspecified organism; R65.20 - Severe sepsis without septic shock Status: Acute (3) Abnormal glucose: Code(s): R73.09 - Other abnormal glucose Status: Acute (4) Hypokalemia: Code(s): E87.6 - Hypokalemia Status: Acute (5) Bipolar 1 disorder: Code(s): F31.9 - Bipolar disorder, unspecified Status: Chronic DS: Summary Hospital Course Reason for hospitalization: tuboovarian abscesses with sepsis Hospital Course: The patient was admitted through the emergency room with CT showing a 13cm multiloculated pelvic abscess and a white count of 36. She was febrile to 102? F. The patient was started on Zosyn, vancomycin, and Flagyl. The radiology intervention was able to initially drained 250cc of pus from the abscess and the drain was left in place. Initially the white count came down to 25 however would not decrease further. The patient remained afebrile after the initial [address]. Second CT scan was done and showed new abscesses as well as persistent abscess in the original location. Therefore the patient was taken to the operating room and underwent total abdominal hysterectomy bilateral salpingo-oophorectomy and extensive adhesiolysis. The drain was left in place until postoperative day 4. The patient remained afebrile since surgery and her white count has continued to decrease since surgery. She did have a slowly decreasing hemoglobin and was transfused 2units of packed red blood cells. Hemoglobin has been stable since that time. The patient was noted to have quite elevated glucose levels throughout her initial hospital stay and required sliding scale insulin for management. Hemoglobin A1c was 6.2 consistent with borderline diabetes. Once the infection was under control the Accu-Cheks have been in the 120 to 180 range. She had various abnormal chemistries including magnesium and potassium requiring replacement throughout her hospital stay. The hospitalist team and Dr. Lorenzo were consulted and managed patient care as well. At the time of discharge patient is ambulating in her room well on her own, tolerating a regular diet and eating 50 to 70% of her tray, and voiding without difficulty. Due to significant social issues with her son and his father the patient's request discharge at this time. She is instructed on follow-up as well as continuing antibiotics until they are completely gone. She states she will follow up with her primary as well as me in the next week. And she will continue her antibiotics. Status at Discharge Functional status at discharge: independent ambulation Overall status at discharge: patient is progressing back to baseline Time Spent with Patient Time attestation: Total time spent providing and/or coordinating discharge services: Time spent: Less than 30 minutes DS: Data Data Completed and Pending Completed studies during hospitalization: Pending at discharge 06/26/20 19:50 Surgical [PTH] Routine Labs on day of discharge: Labs from last 24 hours 07/01/20 07/01/20 07/01/20 08:03 05:30 05:30 WBC 16.8 H RBC 3.25 L Hgb 9.5 L Hct 29.1 L MCV 89.5 MCH 29.2 MCHC 32.6 RDW 16.0 H Plt Count 640 H MPV 8.2 Immature Gran % (Auto) 1.1 H Neut % (Auto) 80.7 H Lymph % (Auto) 10.8 L Elliott % (Auto) 5.7 Eos % (Auto) 1.4 Baso % (Auto) 0.3 Lymph # (Auto) 1.81 Elliott # (Auto) 1.0 H Eos # (Auto) 0.2 Baso # (Auto) 0.1 Abs Immat Gran (auto) 0.19 H Absolute Neuts (auto) 13.6 H Absolute Nucleated RBC 0.0 Nucleated RBC % 0.0 Sodium 137 Potassium 3.2 L Chloride 101 Carbon Dioxide
[2020-07-01 11:40] LABS: Glucose Point of Care 117 (65-105)
== END 2020-07-01 13:55 | disposition home or self-care (01) | DRG 854 ==
LOC: ANHED 11:12 → ANH2MED 13:27
PROVIDERS: Family Medicine; Internal Medicine; Internal Medicine Infectious Disease; Obstetrics & Gynecology; Physician Assistant; Admitting Provider Obstetrics & Gynecology Gynecology; Emergency Provider Emergency Medicine; PCP Family Medicine; Visit Provider Obstetrics & Gynecology Gynecology
PROC: 0UT94ZZ Resection of Uterus, Percutaneous Endoscopic Approach (ICD-10-PCS; principal; 2020-06-26 17:00)
DX: A41.9 Sepsis, unspecified organism (principal); N70.03 Acute salpingitis and oophoritis; E87.2 Acidosis; R65.20 Severe sepsis without septic shock; B95.4 Other streptococcus as the cause of diseases classified elsewhere; N73.6 Female pelvic peritoneal adhesions (postinfective); N73.8 Other specified female pelvic inflammatory diseases; D64.9 Anemia, unspecified; F31.9 Bipolar disorder, unspecified; E87.6 Hypokalemia; R73.09 Other abnormal glucose; M79.7 Fibromyalgia; R05 Cough; E66.01 Morbid (severe) obesity due to excess calories; Z68.39 Body mass index [BMI] 39.0-39.9, adult
CPT/HCPCS: 36415; 36430; 36569; 36600; 71045; 71046; 74177; 75989; 80048; 80053; 80076; 80202; 81001; 82375; 82607; 82728; 82746; 82805; 83036; 83050; 83540; 83550; 83605; 83735; 85014; 85018; 85025; 85027; 85610; 85730; 86140; 86850; 86900; 86901; 86920; 87040; 87070; 87075; 87076; 87077; 87086; 87088; 87185; 87186; 87205; 87324; 87491; 87591; 87808; 88307; 93005; 96365; 96367; 96375; 97110; 97162; 97164; 97165; 97166; 99285; A9270; C1751; C1769; J0131; J0330; J1170; J1650; J1815; J1885; J2250; J2405; J2543; J2704; J2710; J3010; J3370; J3475; J3480; J7030; J7040; J7050; J7120; P9016; Q9967

== ENCOUNTER 2020-08-16 20:41 | Emergency (ER) | payer MEDICARE, MEDICAID, SELFPAY ==
--- NOTE | ~2020-08-16 | CT_ITS ---
EXAMINATION: CT abdomen pelvis w con DATE: 08/17/2020 00:09 INDICATION: Abdominal pain, abdominal distention, constipation TECHNIQUE: Computed tomography (CT) of the abdomen and pelvis was performed with 100 cc Omnipaque 350 intravenous contrast. Automated exposure control and iterative reconstruction technique were employe d. Exam dose: 684.29 mGy-cm total exam DLP. COMPARISON: 06/26/2020 CT abdomen pelvis FINDINGS: There is a new ventral abdominal pelvic wall scar and hysterectomy since 06/26/2020. There is interval removal of a percutaneous drainage catheter since 06/26/2020. No residual abscess cavitie s are noted. There is mild discoid atelectasis at the posterior left lung base, left lower lobe. Normal heart size. No pericardial or pleural effusion. Small sliding hiatal hernia. The liver, gallbladder, spleen are unremarkable. There is a small calcification of the body of the pa ncreas, suggesting mild chronic pancreatitis. No pancreatic mass lesion or ductal dilatation. Normal morphology of the left adrenal gland. 2 x 2.5 cm right adrenal myelolipoma. No renal mass lesion or urinary tract calculus or hydroureteronephrosis. Normal caliber of the abdominal aorta. No intraperitoneal or retroperitoneal or pelvic mass lesion or adenopathy or ascites. Is a prominent of fecal material in the rectum. No bowel obstruction is evident. Status post appendec mike. No intraperitoneal free air. IMPRESSION: Interval hysterectomy and removal of percutaneous drainage catheter since 06/26/2020. Re solution of previously reported abscesses Reviewed, dictated and finalized at [facility] Reviewed, dictated and finalized at [facility] ER IMPRESSION: Interval hysterectomy and removal of percutaneous drainage cathete r since 06/26/2020. Resolution of previously reported abscesses
[2020-08-16 20:51] VITALS: BP 124/92; PULSE 113; RESP 22; TEMP 36.1; O2SAT 97
[2020-08-16 22:44] VITALS: BP 128/84; PULSE 100; RESP 16; O2SAT 99
--- NOTE | 2020-08-16 23:07 | ED.ABDPAIN ---
HPI - Abdominal Pain General Chief Complaint: Abdominal Pain Stated Complaint: abd pain/constipation Time Seen by Provider: 08/16/20 22:27 Source: patient Mode of arrival: ambulatory Limitations: no limitations History of Present Illness HPI narrative: This patient is a 49 year old year old female who presents for evaluation constipation and abdominal pain. She states she has not had a bowel movement in 1.5 weeks. She previously reports having a bowel movement every other day. She does not have the urge to defecate. She denies nausea, vomiting. She reports she took 3 doses of miralax 3 days ago and she still has not had a bowel movement. She does report abdominal distension and mid abdominal pain for 2 days. She denies fever or chills Related Data Home Medications Medication Instructions Recorded Confirmed Trintellix 20 mg PO DAILY 06/21/20 06/21/20 Vraylar 1.5 mg PO DAILY 06/21/20 06/21/20 [id number] 1 cap BID PRN 06/21/20 06/21/20 [Fioricet] clonazepam 2 mg PO TID PRN 06/21/20 06/21/20 pregabalin [Lyrica] 200 mg PO BID PRN 06/21/20 06/21/20 ropinirole 0.5 mg PO BID PRN 06/21/20 06/21/20 trazodone 100 mg PO HS PRN 06/21/20 06/21/20 Allergies Allergy/AdvReac Type Severity Reaction Status Date / Time No Known Allergies Allergy Mild Verified 08/16/20 20:53 Review of Systems Review of Systems: All systems reviewed & are unremarkable except as noted in HPI and below Constitutional: Constitutional: Denies chills and Denies fever(s) Gastrointestinal: Gastrointestinal: Reports abdominal pain, Reports constipation, Denies diarrhea, Denies nausea and Denies vomiting Genitourinary: Genitourinary: Denies hematuria and Denies nocturia Psychiatric: Psychiatric: Reports anxiety PMFSH Past Medical History Medical History (Updated 08/17/20 @ 00:58 by Smiley Frederick MD) Abscess of female pelvis Anxiety Bipolar 1 disorder Cough Depression Fibromyalgia Hypokalemia Obesity Severe sepsis Surgical History Surgical History H/O: History of appendectomy Social History Social History Smoking status: Never smoker Second hand tobacco smoke exposure: No Alcohol intake: never Substance use: never Gender identity (if verbalized by the patient): Female Spiritual care concerns: No Exam Const: General: no acute distress and alert Orientation/consciousness: patient oriented x3 HENMT: Head: atraumatic General nose exam: No nasal polyps present Face and sinus: face symmetric Eyes: EOM: EOMs intact bilaterally Resp: Effort & Inspection: normal respiratory effort and no retractions Auscultation: clear to auscultation bilaterally Cardio: Rate: regular rate Rhythm: regular rhythm Heart sounds: no murmurs GI: GI Palp: Yes Soft to palpation, No Tenderness to palpation present (GI), No Guarding due to palpation present (GI) and No Rigid due to palpation Auscultation: normal bowel sounds Rectal Exam: No fecal impaction Other: stool present in depends. soft stool in rectum, Skin: General skin exam: normal color Other: midline abdominal incision, healing, no drainage, no erythema, incision is intact Neuro: General: patient oriented x3 and moves all extremities Psych: Affect: Anxious affect present Course Reevaluation(s) Reevaluation #1: I Discussed with patient CT results. She was also found to have UTI. I Discussed constipation management. She wants to go home to give self enema and oral medications. Date: 08/17/20 Time: 00:54 Vital Signs Vital signs: Vital Signs Temperature 96.9 F L 08/16/20 20:51 Pulse Rate 113 H 08/16/20 20:51 Respiratory Rate 22 H 08/16/20 20:51 Blood Pressure 124/92 H 08/16/20 20:51 Pulse Oximetry 97 08/16/20 20:51 Temperature 97.3 F L 08/17/20 01:38 Pulse Rate 67 08/17/20 01:38 Respiratory Rate
[2020-08-16 23:14] LABS: Basophils Absolute Auto 0.1 K/mm3 (0.0-0.1); Basophils Percent Auto 0.9 % (0.2-1.2); Eosinophils Absolute Auto 0.6 K/mm3 (0-0.3); Eosinophils Percent Auto 4.7 % (0-4.4); Hematocrit 45.4 % (37.0-47.0); Hemoglobin 14.7 g/dL (12.0-15.0); Immature Granulocyte Absolute 0.03 K/mm3 (0.00-0.031); Immature Granulocyte Percent A 0.2 % (0-0.5); Lymphocytes Percent Auto 28.4 % (18.3-44.2); Mean Corpuscular HGB Conc 32.4 g/dl (32-36); Mean Corpuscular Hemoglobin 28.5 pg (26-34); Mean Corpuscular Volume 88.2 fl (80-100); Mean Platelet Volume 9.2 fl (7.4-10.4); Monocytes Absolute Auto 0.9 K/mm3 (0.1-0.6); Monocytes Percent Auto 6.6 % (2.6-8.5); Neutrophils Absolute Auto 7.7 K/mm3 (1.3-6.7); Neutrophils Percent Auto 59.2 % (45.5-73.1); Platelet Count Result 508 k/mm3 (150-375); Red Blood Count 5.15 M/mm3 (4.2-5.4); Red Cell Distribution Width 13.5 % (11.5-14.5); White Blood Count 13.1 K/mm3 (4.5-10.0)
[2020-08-16] MEDS: LACTATED RINGERS 1,000 ML 999 ML IV CONT (23:23)
[2020-08-16 23:27] LABS: Lactic Acid Reflex 2.7 mmol/L (0.7-2.1)
[2020-08-16 23:28] LABS: Alanine Aminotransferase 26 U/L (4-35); Albumin Level 4.3 g/dL (3.5-5.1); Alkaline Phosphatase 90 U/L (38-126); Anion Gap 9 mmol/L (8-16); Aspartate Amino Transferase 32 U/L (14-36); Bilirubin,Total 0.4 mg/dL (0.2-1.3); Blood Urea Nitrogen 10 mg/dL (7-17); Calcium 9.7 mg/dL (8.4-10.2); Carbon Dioxide 30 mmol/L (22-30); Chloride 102 mmol/L (98-107); Estimated CRCL calculation 64 ml/min; Estimated Glomerular Filt Rate > 60; Glucose 120 mg/dL (65-105); Lipase 138 U/L (23-300); Potassium 3.8 mmol/L (3.4-5.0); Sodium 141 mmol/L (137-145)
[2020-08-16 23:33] LABS: Add Urine Microscopic? YES; Appearance Urine Cloudy (Clear); Bacteria Urine 4+ /hpf; Bilirubin Urine Negative (Negative); Blood Urine 1+ (Negative); Color Urine Yellow (Yellow); Glucose Urine UA Negative (Negative); Ketones Urine Negative (Negative); Leukocyte Esterase Ur 1+ LEU/UL (Negative); Mucus Urine Moderate /lpf; Nitrate Urine Positive (Negative); Protein Urine 1+ mg/dL (Negative); Specific Grav Ur 1.014 (1.001-1.035); Squamous Epithelial Cell Urine Many /hpf (Few); Urobilinogen Urine Negative mg/dL (<2.0); WBC Urine 21-30 /hpf
[2020-08-17 01:38] VITALS: BP 127/56; PULSE 67; RESP 14; TEMP 36.3; O2SAT 99
[2020-08-17 02:12] LABS: Reflex Lactic Acid Yes or No Add Lactic
== END 2020-08-17 01:39 | disposition home or self-care (01) ==
PROVIDERS: Emergency Provider General Practice; PCP Family Medicine
DX: N39.0 Urinary tract infection, site not specified (principal); K59.00 Constipation, unspecified; F41.9 Anxiety disorder, unspecified; F31.9 Bipolar disorder, unspecified; M79.7 Fibromyalgia; E87.6 Hypokalemia
CPT/HCPCS: 36415; 74177; 80053; 81001; 83605; 83690; 85025; 87077; 87086; 87088; 87186; 96361; 96365; 99284; J0696; J7120; Q9967

== ENCOUNTER 2025-04-03 15:01 | Emergency (ER) | payer MEDICARE, MEDICAID, SELFPAY ==
--- NOTE | 2025-04-03 15:05 | ED.UPPEXIN ---
HPI - Extremity Injury (Upper) General Chief Complaint: Extremity Problem,Nontraumatic Stated Complaint: pain in right hand Time Seen by Provider: 04/03/25 15:13 Source: patient, RN notes reviewed and old records reviewed Mode of arrival: ambulatory Limitations: no limitations History of Present Illness HPI narrative: 54-year-old female presents to the [facility] with chronic pain to the right hand. Has an appointment with Dr. Majano on 18 April per medical record. Patient is a poor historian, states that she has seen her primary care provider in the past. Comes in today requesting stronger pain medicine because Motrin and Tylenol are not working. Has not been taking her meloxicam. Discussed doing an x-ray which she declined. Patient has full range of motion of the fingers. Capillary refill under 2 seconds. Patient reports palmar aspect center palm significant pain to the center. No bruising or swelling noted. Onset (ago): week(s) Other injuries: none Treatments prior to arrival: other (OTC meds) Related Data Home Medications ?Medication ?Instructions ?Recorded ?Confirmed ?Last Taken ?Type ogklylnzbi-uabnhspkwpcfq-wqdoiufj 1 cap BID PRN Headache 06/21/20 06/21/20 Unknown History 50 mg-300 mg-40 mg capsule (Fioricet) cariprazine 1.5 mg capsule 1.5 mg PO DAILY 06/21/20 06/21/20 Unknown History (Vraylar) clonazepam 2 mg tablet 2 mg PO TID PRN Anxiety 06/21/20 06/21/20 Unknown History pregabalin 200 mg capsule (Lyrica) 200 mg PO BID PRN Pain 06/21/20 06/21/20 Unknown History ropinirole 0.5 mg tablet 0.5 mg PO BID PRN Restless Leg(S) 06/21/20 06/21/20 Unknown History trazodone 100 mg tablet 100 mg PO HS PRN Sleep 06/21/20 06/21/20 Unknown History vortioxetine 20 mg tablet 20 mg PO DAILY 06/21/20 06/21/20 Unknown History (Trintellix) xxreicfvgs-ivdfemwxxjtpq-zxbepnom tablet 04/03/25 Unknown History 50 mg-325 mg-40 mg tablet cyclobenzaprine 10 mg tablet mg 04/03/25 Unknown History hydroxychloroquine 200 mg tablet mg PO 04/03/25 Unknown History meloxicam 15 mg tablet mg 04/03/25 Unknown History metformin 500 mg tablet,extended mg PO 04/03/25 Unknown History release 24 hr mirabegron 50 mg tablet,extended mg PO 04/03/25 Unknown History release 24 hr (Myrbetriq) quetiapine 100 mg tablet mg 04/03/25 Unknown History ropinirole 1 mg tablet mg 04/03/25 Unknown History venlafaxine 75 mg capsule,extended mg PO 04/03/25 Unknown History release 24 hr zolpidem 5 mg tablet mg 04/03/25 Unknown History Allergies Allergy/AdvReac Type Severity Reaction Status Date / Time No Known Allergies Allergy Mild Verified 04/03/25 15:15 Review of Systems Review of Systems: All systems reviewed & are unremarkable except as noted in HPI and below Constitutional: Constitutional: Reports no additional constitutional complaints Musculoskeletal: Musculoskeletal: Reports as per HPI Integumentary/Breasts: Skin/Breast: Reports system reviewed and no additional complaints, except as docu PMFSH Past Medical History Medical History Obesity Depression Anxiety Fibromyalgia Cough Hypokalemia Severe sepsis Bipolar 1 disorder Abscess of female pelvis Surgical History Surgical History History of appendectomy H/O: Social History Social History Smoking status: Never smoker Second hand tobacco smoke exposure: No Alcohol intake: never Substance use: never Gender identity (if verbalized by the patient): Female Spiritual care concerns: No Comments At the time of my signature, I reviewed and agree with the nursing past medical, surgical, social, and family history. There is no relevant family history pertinent to the patient complaint. Exam Const: General: cooperative, no acute distress, well developed, alert, ill appearing chronically, poor hygiene, well nourished and obese Nutritional Appearance: well nourished Orientation/consciousness: patient oriented x3 Limitations: no limitations HENMT: Head: normal to inspection Eyes: General: appearance normal, both eyes and all related structures Alignment and Position: alignment normal Neck: Neck: normal visual inspection, full ROM, no lymphadenopathy and no meningeal signs Chest: Chest palpation & inspection: normal inspection of the chest Resp: Effort & Inspection: normal respiratory effort and able to speak in complete sentences Cardio: Rate: regular rate Skin: General skin exam: normal color and no rashes or lesions noted Neuro: General: patient oriented x3, gait normal, moves all extremities and no meningeal signs Cognition (Neuro): normal cognition Speech: normal speech Gait exam (Neuro): Normal gait present Extrem: General: normal to inspection, full ROM, capillary refill normal and normal gait Right upper extremity: Extremity exam: right hand normal capillary refill, neuromotor exam normal wrist extension normal, thumb opposition normal, thumb IP flexion normal, thumb ADduction normal and fingers 2-5 ABduction normal, tenderness of the palm (Worse of the center palm, but tenderness throughout the entire hand, all 5 fingers) and vascular exam radial pulse present and normal capillary refill; no abrasions and no ecchymosis Psych: Appearance: grossly normal and well kempt Mental Status: mental status grossly normal Speech and movement: Normal speech and movement present and Clear speech present Affect: normal affect Attitude: cooperative Course Course Level of Care: Express Care Visit Vital Signs Vital signs: Vital Signs Temperature 96.4 F L 04/03/25 15:13 Pulse Rate 95 04/03/25 15:13 Respiratory Rate 04/03/25 15:13 Blood Pressure 142/91 H 04/03/25 15:13 Pulse Oximetry 95 04/03/25 15:13 Oxygen Delivery Room Air 04/03/25 15:13 Temperature 96.4 F L 04/03/25 15:13 Pulse Rate 95 04/03/25 15:13 Respiratory Rate 20 04/03/25 15:13 Blood Pressure 142/91 H 04/03/25 15:13 Pulse Oximetry 95 04/03/25 15:13 Oxygen Delivery Room Air 04/03/25 15:13 Reviewed MDM - Extremity Injury (Upper) MDM Narrative Medical decision making narrative: Patient sitting in exam room. Patient is nontoxic, vitals are stable. Patient presents with chronic hand pain, patient states ?I want it fixed today? or better pain medicine Discussed taking the meloxicam incentive ibuprofen on a daily basis which she has not been taking. Discussed with patient that we do not write for any medications that is stronger. Discussed doing an x-ray for evaluation, patient declined. Stating that she was just hoping to get her hand fixed today and stop the cramping. Discharge instructions reviewed with patient, as well as provided in writing per nursing staff. The instructions also include specific and strict return/GO TO THE ER as well as f/u information. All questions have been answered, and the patient deny any further questions with discharge and discharge plan. Some parts of this dictation were generated by voice recognition software and may contain typographical and/or grammatical inaccuracies. Differential Diagnosis Differential diagnosis: Likely other (Fibromyalgia, carpal tunnel, arthritis) Critical Care Time Critical Care Time Critical Care Time: No Discharge Plan Discharge Clinical Impression: Arthralgia of hand, right Patient Disposition: Home Condition: Stable Instructions: Arthralgia (ED) Additional Instructions: Take your meloxicam daily. Take Tylenol arthritis per package instructions Apply ice or heat to the area You can purchase a Velcro wrist splint and wear at night and see if this helps decrease your pain Call your doctor in the morning she for follow-up appointment Follow-up with the hand specialist as already scheduled Patient Language: Angolan Prescriptions: No Action cyclobenzaprine 10 mg tablet venlafaxine 75 mg capsule,extended release 24hr PO ropinirole 1 mg tablet meloxicam 15 mg tablet quetiapine 100 mg tablet svssllbldx-upfylrehrfllo-wajy 50-325-40 mg tablet zolpidem 5 mg tablet hydroxychloroquine 200 mg tablet PO metformin 500 mg tablet extended release 24 hr PO mirabegron [Myrbetriq] 50 mg tablet extended release 24 hr PO trazodone 100 mg Tablet 100 mg PO HS PRN (Reason: Sleep) clonazepam 2 mg Tablet 2 mg PO TID PRN (Reason: Anxiety) pregabalin [Lyrica] 200 mg Capsule 200 mg PO BID PRN (Reason: Pain) lybkeftogu-fuaydwqwcsfpg-ksdi [Fioricet] 50-300-40 mg Capsule 1 cap BID PRN (Reason: Headache) Trintellix 20 mg Tablet 20 mg PO DAILY ropinirole 0.5 mg tablet 0.5 mg PO BID PRN (Reason: Restless Leg(S)) Vraylar 1.5 mg Capsule 1.5 mg PO DAILY hydrocodone-acetaminophen 5-325 mg Tablet 1 tab PO Q4H PRN (Reason: Pain Rated 4-6) Qty: 10 0RF clotrimazole-betamethasone 1-0.05 % cream 1 applic topical BID Qty: 45 0RF polyethylene glycol 3350 [Miralax] 17 gram/dose powder 17 g PO DAILY PRN (Reason: constipation) Qty: 119 0RF Follow-up/Referrals: David,Corrie Courtney RE [employer] [Primary Care Provider] - 1 Week ([facility] care follow up ) Stand Alone Forms: Work/School Release IP Time of Disposition: 15:24
[2025-04-03 15:13] VITALS: BP 142/91; PULSE 95; RESP 20; TEMP 35.8; O2SAT 95
== END 2025-04-03 15:33 | disposition home or self-care (01) ==
PROVIDERS: Emergency Provider Nurse Practitioner; PCP Nurse Practitioner Family
DX: M25.541 Pain in joints of right hand (principal); M79.7 Fibromyalgia; E66.9 Obesity, unspecified; Z68.35 Body mass index [BMI] 35.0-35.9, adult; F31.9 Bipolar disorder, unspecified; F41.9 Anxiety disorder, unspecified
CPT/HCPCS: 99213; G0463

== ENCOUNTER 2025-04-28 15:06 | Outpatient (CLI) | payer MEDICARE, SELFPAY ==
--- NOTE | ~2025-04-28 | XR_ITS ---
XR hand RT min 3V 04/28/2025 15:31 Indication: Right hand pain Procedure: 4 views right hand Comparison: No prior studies for comparison. Findings: There is mild polyarticular osteoarthritis. Normal mineralization. No fracture, subluxation or dislocation. No focal soft tissue abnormality. No foreign bodies. 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 Reviewed, dictated and finalized at location O. 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
== END 2025-04-28 15:07 | disposition home or self-care (01) ==
PROVIDERS: PCP Nurse Practitioner Family; Visit Provider Nurse Practitioner Family
DX: M79.641 Pain in right hand (principal)
CPT/HCPCS: 73130